=== PATIENT | male | born 1995 | race Caucasian/White ===

== ENCOUNTER → 2018-01-23 02:56 | Outpatient (CLI) | payer MEDICAID, SELFPAY ==
--- NOTE | 2018-01-23 15:03 | DI.REPORT_ITS ---
SYMPTOMS/DIAGNOSIS: PAIN OF MEDIAL RT UPPER EXTREMITY, M79.601 SOFT TISSUE ULTRASOUND OF RIGHT UPPER EXTREMITY: Soft tissue ultrasound was performed to evaluate palpable area of abnormality of the distal medial upper arm. There is an approximately 7 x 6 mm in diameter solid echogenicity mass with mildly lobulated fairly well circumscribed borders. There is vascular flow within this mass. The findings are nonspecific but may represent an abnormally enlarged lymph node or other soft tissue mass. Neoplastic disease not excluded but unlikely in this age group and location. Visible vasculature in the forearm appears within normal limits with no evidence of venous thrombosis. CONCLUSION: Indeterminate small right distal medial upper arm mass with internal vascular flow, possible enlarged lymph node, neoplastic disease not excluded.
== END ==
PROVIDERS: PCP Family Medicine
DX: M79.601 Pain in right arm (principal); R22.31 Localized swelling, mass and lump, right upper limb; R59.0 Localized enlarged lymph nodes
CPT/HCPCS: 76881

== ENCOUNTER 2018-04-07 09:36 | Outpatient (CLI) | payer MEDICAID, SELFPAY ==
[2018-04-08 12:02] LABS: HIV-1/2 Ag & Ab Screen Negative (NEGAT)
[2018-04-08 15:46] LABS: Chlamydia Result Negative; GC Result Negative; Specimen Description URINE
== END 2018-04-07 09:56 ==
PROVIDERS: PCP Family Medicine; Visit Provider Family Medicine
DX: Z11.3 Encounter for screening for infections with a predominantly sexual mode of transmission (principal); Z11.4 Encounter for screening for human immunodeficiency virus [HIV]
CPT/HCPCS: 36415; 87389; 87491; 87591

== ENCOUNTER 2018-12-12 08:12 | Emergency (ER) | payer MEDICAID, SELFPAY ==
[2018-12-12 08:15] VITALS: BP 119/86; PULSE 68; RESP 14; TEMP 37.4; O2SAT 100
--- NOTE | 2018-12-12 08:43 | DI.COMBO_ITS ---
SYMPTOM/DIAGNOSIS: ABD PAIN, TRAUMA, LATERAL RIB PAIN ABDOMEN AND PELVIC CT: CT scan of the abdomen and pelvis was performed following the uneventful administration of intravenous contrast material. Comparison is made with 02/09/15. The visualized lung bases are clear. There is no evidence of a basilar pneumothorax. The liver is normal in size. No evidence of a hepatic mass or laceration. The gallbladder is negative. The portal, superior mesenteric and splenic veins are patent. There is no biliary ductal dilatation. The pancreas, spleen, adrenal glands, kidneys, ureters and bladder are unremarkable. Reproductive organs are unremarkable. The bowel is unremarkable. The abdominal aorta is of normal caliber. No aneurysmal dilatation. No significant abdominal or pelvic adenopathy, ascites or pneumoperitoneum is seen. There is a minimally displaced fracture involving the posterolateral aspect of the left ninth rib. No other fractures are appreciated. IMPRESSION: Minimally displaced fracture of the left ninth rib. No evidence of a basilar pneumothorax. No evidence of abdominal or pelvic organ injury. LEFT RIBS AND PA AND LATERAL CHEST: Heart size and pulmonary vasculature are within normal limits. The lungs are clear and well expanded. There is a minimally displaced fracture involving the posterolateral aspect of the left ninth rib. No other fracture is seen. No effusion or pneumothorax is identified. There is contrast in the renal collecting system due to the patient's recent CT scan. IMPRESSION: Minimally displaced left ninth rib fracture.
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
[2018-12-12 09:09] LABS: Bilirubin Small (Negative); Blood Negative (Negative); Clarity Clear (Clear); Glucose Negative (Negative); Ketones Negative (Negative); Leukocyte Esterase Negative (Negative); Nitrite Negative (Negative); Specific Gravity 1.015 (1.005-1.025); pH 8.5 (5-8)
[2018-12-12 09:16] LABS: Abs Immature Grans 0.01 k/cumm (0.0-0.09); Absolute Basophil Count 0.06 k/cumm (0.0-0.2); Absolute Eosinophil Count 0.08 k/cumm (0.0-0.7); Absolute Lymphocyte Count 1.63 k/cumm (1.2-3.4); Absolute Monocyte Count 0.76 k/cumm (0.11-0.7); Basophils % 0.8; Eosinophils % 1.1; HCT 47.2 % (40.0-50.0); HGB 16.4 g/dL (13.5-17.5); Immature Grans % 0.1; Lymphocytes % 22.2; Mean Corp. HGB Concentration 34.7 g/dL (32.0-36.0); Mean Corpuscular Hemoglobin 35.1 pg (27.0-33.0); Mean Corpuscular Volume 101.1 fL (80-95); Mean Platelet Volume 11.1 fL (8.0-11.0); Monocytes % 10.4; Neutrophils % 65.4; Platelet Count 245 x1000/uL (130-400); RBC 4.67 m/cumm (4.50-6.00); RBC Distribution Width 12.4 % (11.8-14.1); White Blood Cell Count 7.34 k/cumm (4.4-10.8)
[2018-12-12 09:18] LABS: Bacteria Negative HPF (Negative); C & S Indicated? No; Casts Negative LPF (Negative); Crystals Negative HPF (Negative); Epithelial Cells Negative HPF (Negative); Mucus Heavy (Negative); RBC Negative (0-2); WBC 0-2 HPF (0-5)
[2018-12-12 09:31] LABS: ALT 28 U/L (12-78); AST 26 U/L (15-37); Albumin 4.2 g/dL (3.4-5.0); Alkaline Phosphatase 95 U/L (46-116); Anion Gap 8.3 mmol/L (3-11); BUN 8 mg/dL (7-18); Bilirubin, Total 0.6 mg/dL (0.2-1.0); CO2 31.7 mmol/L (21.0-32.0); CREATININE 0.85 mg/dL (0.70-1.30); Calcium 9.6 mg/dL (8.5-10.1); Chloride 102 mmol/L (98-107); Glucose 98 mg/dL (70-100); Sodium 142 mmol/L (136-145); Total Protein 7.9 g/dL (6.4-8.2)
[2018-12-12] MEDS: Omnipaque 350 MG/ML 100 ML BTL IJ (09:46)
[2018-12-12] MEDS: Ketorolac 30 MG/ML VIAL IVP (10:03)
[2018-12-12] MEDS: Normal Saline Flush 10 ML SYR IVP (10:04)
--- NOTE | 2018-12-12 10:04 | DI.VRAD_ITS ---
Addendum created by Darlene Montana MD on 12/12/2018 10:11:31 AM EDT THIS REPORT CONTAINS FINDINGS THAT MAY BE CRITICAL TO PATIENT CARE. The findings were verbally communicated via telephone conference with Dr. Pablo Barrios at 10:11 AM EDT on 12/12/2018. The findings were acknowledged and understood. Addendum created by Darlene Montana MD on 12/12/2018 10:05:30 AM EDT Correction: There is a minimally displaced left ninth rib fracture. Initial report created on 12/12/2018 10:03:38 AM EDT EXAM: CT Abdomen and Pelvis With Contrast EXAM DATE/TIME: 12/12/2018 8:46 AM CLINICAL HISTORY: 23 years old, male; Abdominal pain; Other: Abd pain S/P trauma TECHNIQUE: Imaging protocol: Axial computed tomography images of the abdomen and pelvis with intravenous contrast. Coronal and sagittal reformatted images were created and reviewed. Radiation optimization: All CT scans at this facility use at least one of these dose optimization techniques: automated exposure control; mA and/or kV adjustment per patient size (includes targeted exams where dose is matched to clinical indication); or iterative reconstruction. Contrast material: OMNIPAQUE 350; Contrast volume: 100 ml; Contrast route: IV; COMPARISON: CT CHEST ABD PELVIS WITH CONTRAST 10/19/2017 12:17 AM FINDINGS: Lungs: Atelectasis or scar in the right lower lobe Liver: Normal. No mass. Gallbladder and bile ducts: Normal. No calcified stones. No ductal dilation. Pancreas: Normal. No ductal dilation. Spleen: Normal. No splenomegaly. Adrenals: Normal. No mass. Kidneys and ureters: Normal. No hydronephrosis. Stomach and bowel: Normal. No obstruction. No mucosal thickening. Appendix: No evidence of appendicitis. Intraperitoneal space: Normal. No free air. No significant fluid collection. Vasculature: Normal. No abdominal aortic aneurysm. Lymph nodes: Normal. No enlarged lymph nodes. Bladder: Unremarkable as visualized. Reproductive: Unremarkable as visualized. Bones/joints: No acute fracture. No dislocation. Soft tissues: Unremarkable. IMPRESSION: No acute process Dictated and Authenticated by: Darlene Montana MD. Ordering:KRISSY Chen MD
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
[2018-12-12] MEDS: Lidocaine 5% Patch 1 PATCH TP (10:21)
[2018-12-12 10:35] VITALS: BP 116/85; PULSE 68; RESP 15; O2SAT 100
== END 2018-12-12 10:35 | disposition home or self-care (01) ==
PROVIDERS: Emergency Provider Nurse Practitioner Family; PCP Family Medicine
DX: S22.32XA Fracture of one rib, left side, initial encounter for closed fracture (principal); W22.8XXA Striking against or struck by other objects, initial encounter
CPT/HCPCS: 36415; 80053; 96374; 99285; 71046; 71100; 74177; 81003; 81015; 85025; 99284; J1885; J3490

== ENCOUNTER 2019-03-14 08:23 | Emergency (ER) | payer MEDICAID, SELFPAY ==
[2019-03-14 08:29] VITALS: BP 118/80; PULSE 89; RESP 20; TEMP 36.2; O2SAT 97
[2019-03-14 08:34] VITALS: RESP 18
[2019-03-14] MEDS: Lactated Ringers 1,000 ML 1000 ML IV ×2 (08:59→09:59)
--- NOTE | 2019-03-14 09:01 | ED.GENADUL_ITS ---
Discharge Plan Disposition Patient Disposition: HOME Condition: Improving Discharge Details Chief Complaint: GenMedical Clinical Impression: Nausea & vomiting Primary Care Provider: Delfino Huang ED Provider: Kaci Paul Home Meds and New Rx's Prescriptions: New promethazine 25 mg tablet 25 mg PO TID PRN (Reason: nausea and vomiting) Qty: 10 RF: 0 Continued methadone [Methadone Intensol] 10 mg/mL concentrate 75 mg PO DAILY RF: 0 lactulose 20 gram/30 mL solution 20 gm PO BID Qty: 1200 RF: 2 Vyvanse 70 mg capsule 70 mg PO DAILY MDD 1 cap Qty: 30 RF: 0 Vyvanse 20 mg capsule 20 mg PO DAILY MDD 1 cap Qty: 30 RF: 0 lidocaine 5 % adhesive patch,medicated 1 patch TP DAILY PRN (Reason: pain) Qty: 15 RF: 0 Discharge Instructions Instructions: Acute Nausea and Vomiting (ED) Additional Instructions: Continue to encourage hydration. You may advance diet as tolerated, may want to start with the BRAT diet including bananas, rice, applesauce and toast. You may use Phenergan as prescribed should your nausea vomiting recur. If you develop fever/chills, abdominal pain, are unable to control the vomiting, unable to hydrate develop with a new/worsening symptoms please seek care urgently once again. Otherwise, please follow-up with primary care next week for reevaluation. Referrals: Delfino Huang [Primary Care Provider] - Discharge Data Discharge Date/Time-TO BE ENTERED AT DEPARTURE: 03/14/19 10:47 Medical Decision Making Patient is a 23-year-old male, accompanied by his mother, with chief complaint of nausea vomiting. Reports he woke this morning around 6:00 and since that time has vomited x5. Denies any hematemesis. No recent travel. States that he did eat fast food from [employer] yesterday. Was feeling well yesterday. No diarrhea. Reports that is not unusual for him to have nausea and vomiting but associates this with needing daily bowel movements. Reports if he does not have his daily bowel movement, he will shortly have episodes of emesis. Denies any fevers or chills. Endorses cramping. States that prior to episodes of the vomiting he can become diaphoretic and have [id number] all over. Denies any rash. No chest pain or shortness of breath. States that he had 4 alcoholic beverages last night. On exam, patient appears nauseated he is holding emesis bag, is moving frequently and appears uncomfortable. After the IV was placed, patient immediately calmed down even prior to administration of any medications. Abdominal exam is benign. He does indicate the right flank is area where he is having some discomfort but no pain is elicited with CVA percussion. He has diffuse discomfort with palpation. The left upper quadrant, bilateral lower quadrants. No peritoneal findings, no rebound or guarding. He denies any pain going into his testicles, penile discharge. He denies any dysuria, hematuria, increased frequency or urgency. Plan for laboratory evaluation. Patient also reports that shortly after receiving his methadone dosing this morning, he did throw this up we did call [facility] and they report they did not witness the episode of emesis so were unable to re-dose him. Labs reviewed, no leukocytosis. CBC is largely normal. No electrolyte abnormalities. Patient's lactate is slightly elevated at 2. No anion gap. Normal kidney function. pH of his urine is elevated at 9. This may be associated with his acute vomiting. I did discuss this with him and advised that he may need to have this rechecked by his primary care. As I was going to re-dose the patient's methadone, I obtained a UDS. Patient was both methadone and opiate positive. I did discuss this with the patient who advised that he may have had a relapse. Cannot tell me what he used or when he used but patient does make it clear that he used illicit narcotics. At this time, [facility] the clinic is closed. The patient does seem genuinely remorseful and reports he will follow-up regarding his relapse with his clinic assigned counselor. Our clinical care manager will follow up with them tomorrow. Patient will be discharged home with oral Phenergan to use should he have any recurrence of his symptoms. He has received IV hydration. He is eating and drinking here. Appears much improved. Has not had any further episodes of vomiting. He was given return precautions. All his questions and concerns were addressed and he is in agreement with this plan. HPI General Mode of arrival: ambulatory . Date/Time Provider Initiated Documentation: 03/14/19 08:41 . Limitations to Documentation: no limitations . Information obtained by: patient, family (mother) and RN notes reviewed . History of Present Illness 23 year old M presents to the emergency department with the chief complaint of N/V, abdominal cramping, described as moderate, with intensity rated at 5. Quality is described as aching, and is localized to the abdomen. Patient reports no radiation. Patient started experiencing this hour(s) (0600) and it has been constant. No relieving factors improve symptom(s), No exacerbating factors reported . Patient notes diaphoresis (prior to emesis), loss of appetite and nausea/vomiting; denies chest pain, cough, fever/chills, headaches, rash, shortness of breath and weakness. Patient did receive the following treatments prior to arrival, none Related Data Home Medications Medication Instructions Recorded Confirmed methadone 10 mg/mL oral concentrate 75 mg PO DAILY ml 04/28/18 12/12/18 lactulose 20 gram/30 mL oral 20 gm PO BID #1200 ml 10/15/18 12/12/18 solution lidocaine 1 patch TP DAILY PRN #15 each 12/12/18 lisdexamfetamine 20 mg capsule 20 mg PO DAILY #30 cap MDD 1 cap 02/18/19 lisdexamfetamine 70 mg capsule 70 mg PO DAILY #30 cap MDD 1 cap 02/18/19 promethazine 25 mg PO TID PRN #10 tab 03/14/19 Previous Rx's Medication Instructions Recorded lactulose 20 gram/30 mL oral 20 gm PO BID #1200 ml 10/15/18 solution lidocaine 1 patch TP DAILY PRN #15 each 12/12/18 lisdexamfetamine 20 mg capsule 20 mg PO DAILY #30 cap MDD 1 cap 02/18/19 lisdexamfetamine 70 mg capsule 70 mg PO DAILY #30 cap MDD 1 cap 02/18/19 promethazine 25 mg PO TID PRN #10 tab 03/14/19 Allergies Allergy/AdvReac Type Severity Reaction Status Date / Time docusate [From Senna-S] AdvReac Severe GI UPSET Verified 12/12/18 08:19 senna [From Senna-S] AdvReac Severe GI UPSET Verified 12/12/18 08:19 General Stated Complaint: GenMedical DAYRON: 3 Review of Systems Constitutional Constitutional: Reports as per HPI, Denies chills, Denies fatigue, Denies fever(s) and Denies headache(s) ENT Ears, Nose, Mouth, and Throat: Denies headache(s) Cardiovascular Cardiovascular: Reports as per HPI, Denies chest pain and Denies dyspnea Respiratory Respiratory: Reports as per HPI, Denies cough and Denies dyspnea Gastrointestinal Gastrointestinal: Reports as per HPI Genitourinary Genitourinary: Denies system reviewed and no additional complaints, except as docu (patient denies any change in urinary habits) Musculoskeletal Musculoskeletal: Reports as per HPI and Denies back pain Integumentary/Breasts Skin/Breast: Reports as per HPI and Denies rash Neurologic Neurologic: Reports as per HPI and Denies headache(s) Endocrine Endocrine: Denies fatigue [facility] Medical History Accidental drug overdose Alcohol abuse Attention deficit hyperactivity disorder, combined type Cannabis abuse EXPOSURE TO DOMESTIC VIOLENCE Learning difficulty Mood disorder 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 Tobacco use disorder Surgical History Colonoscopy - MAC (08/19/17) EGD - MAC (08/19/17) Social History Smoking/Tobacco Use Status: Current every day Quit status: not considering quitting Second Hand Exposure: Yes Alcohol Intake: current Alcohol Intake frequency: a few times a week Alcohol type: beer Drug use: Occasionally Substance use type: former substance user Caregiver/Support person: No Household members: other Details: Gram/mom Pets and animals: Yes Pets and animals: cat(s) and dog(s) Sexually active: Yes Do you think of yourself as: straight/heterosexual Current gender identity: decline to answer What is your relationship status?: living with partner How often do you talk on the phone with friends or family?: decline to answer How often do you get together with friends or relatives?: decline to answer How often do you attend methodist or buddhism services?: decline to answer Do you belong to any clubs or organized social groups?: decline to answer Panel score (0-1 are the most socially isolated patients): 1 What type of physical activity do you participate in: walking Duration: 15-30 minutes/day Frequency: 3-4 times per week Ofelia/Restoration: Unknown Special ofelia needs: No Do you feel safe at home: Yes Do you feel safe in your relationship?: Yes Exam Const General: cooperative, no acute distress, well developed, ill appearing (holding emesis bag, pale) acutely and not lethargic Nutritional Appearance: average body habitus and well nourished Orientation: alert and awake [facility] Head: normal to inspection Mouth: moist mucous membranes Resp Effort & Inspection: normal respiratory effort, able to speak in complete sentences and no respiratory distress Auscultation: clear to auscultation bilaterally, no rales, no rhonchi and no wheezes Cardio Rate: regular rate Rhythm: regular rhythm Heart Sounds: S1 normal and S2 normal GI Inspection: normal to inspection, non-distended, no scars, no visible herniation and no visible pulsation Palpation: soft, no hepatosplenomegaly, not firm, no guarding, no hernias, no masses and tender in the LLQ, in the RLQ and in the LUQ; obturator sign negative, psoas sign negative and with no rebound tenderness Percussion: normal to percussion Auscultation: normal bowel sounds Back/Spine/Pelvis Back: no CVA tenderness Skin General skin exam: no rashes or lesions noted Trauma: no lacerations or abrasions Neuro General: alert and awake Cognition: normal cognition Speech: speech normal Gait: normal gait Psych Appearance: grossly normal and well kempt Mental Status: mental status grossly normal Speech and Movement: speech and movement normal Course Vital Signs Vital signs: Vital Signs Temperature 36.2 C L 03/14/19 08:29 Pulse 89 03/14/19 08:29 Respiratory Rate 20 03/14/19 08:29 Blood Pressure 118/80 03/14/19 08:29 Pulse Oximetry 97 03/14/19 08:29 Temperature 36.2 C L 03/14/19 08:29 Temperature Source Temporal Artery Scan 03/14/19 08:29 Pulse 89 03/14/19 08:29 Respiratory Rate 18 03/14/19 08:34 Respiratory Effort Non-Labored 03/14/19 08:34 Respiratory Depth Normal 03/14/19 08:34 Respiratory Pattern Normal 03/14/19 08:34 Blood Pressure 118/80 03/14/19 08:29 Blood Pressure Position Sitting 03/14/19 08:29 Pulse Oximetry 97 03/14/19 08:29 Oxygen Delivery Method Room Air 03/14/19 08:29 Oxygen Flow Rate 0 03/14/19 08:29 Pain Level 5 03/14/19 08:29 Lab/Test Results Lab/Test Results: Laboratory Tests Range/Units 03/14/19 08:55 Lactate (0.6-1.4) mmol/L 2.0 H
[2019-03-14] MEDS: diphenhydrAMINE 50 MG/ML VIAL 25 MG IVP (09:05)
[2019-03-14] MEDS: Metoclopramide 10 MG/2 ML VIAL IVP (09:05)
[2019-03-14 09:06] LABS: Abs Immature Grans 0.02 k/cumm (0.0-0.09); Absolute Basophil Count 0.06 k/cumm (0.0-0.2); Absolute Lymphocyte Count 1.38 k/cumm (1.2-3.4); Absolute Monocyte Count 0.74 k/cumm (0.11-0.7); Absolute Neutrophil Count 7.46 k/cumm (1.2-6.7); Basophils % 0.6; HCT 44.8 % (40.0-50.0); Immature Grans % 0.2; Lymphocytes % 14.1; Mean Corp. HGB Concentration 35.7 g/dL (32.0-36.0); Mean Corpuscular Hemoglobin 35.4 pg (27.0-33.0); Mean Corpuscular Volume 99.1 fL (80-95); Mean Platelet Volume 10.6 fL (8.0-11.0); Monocytes % 7.6; Neutrophils % 76.5; Platelet Count 235 x1000/uL (130-400); RBC 4.52 m/cumm (4.50-6.00); RBC Distribution Width 12.8 % (11.8-14.1); White Blood Cell Count 9.76 k/cumm (4.4-10.8)
[2019-03-14 09:17] LABS: ALT 22 U/L (16-63); AST 27 U/L (15-37); Albumin 4.3 g/dL (3.4-5.0); Alkaline Phosphatase 102 U/L (46-116); Anion Gap 10.3 mmol/L (3-11); BUN 8 mg/dL (7-18); Bilirubin, Total 0.5 mg/dL (0.2-1.0); CO2 31.7 mmol/L (21.0-32.0); CREATININE 1.09 mg/dL (0.70-1.30); Calcium 9.6 mg/dL (8.5-10.1); Chloride 101 mmol/L (98-107); Glucose 104 mg/dL (70-100); Lipase 105 U/L (73-393); Potassium 4.2 mmol/L (3.5-5.1); Sodium 143 mmol/L (136-145)
[2019-03-14 09:52] LABS: Bilirubin Negative (Negative); Blood Negative (Negative); Clarity Clear (Clear); Glucose Negative (Negative); Ketones Negative (Negative); Leukocyte Esterase Negative (Negative); Nitrite Negative (Negative); Specific Gravity 1.015 (1.005-1.025); pH >= 9.0 (5-8)
[2019-03-14] MEDS: Normal Saline Flush 10 ML SYR IVP (09:52)
[2019-03-14 10:01] VITALS: BP 106/66; PULSE 59; RESP 16; TEMP 37.1; O2SAT 99
[2019-03-14 10:09] LABS: *AMPHETAMINES SCREEN URINE Negative (Negative); *BARBITURATES SCREEN URINE Negative (Negative); *BENZODIAZEPINES SCREEN URINE Negative (Negative); Cannabinoids THC POSITIVE (Negative); Cocaine Screen,Urine Negative (Negative); METHADONE URINE SCREEN POSITIVE (Negative); OPIATES URINE SCREEN POSITIVE (Negative)
[2019-03-14 10:11] LABS: Bacteria Few HPF (Negative); C & S Indicated? No; Casts Negative LPF (Negative); Crystals Negative HPF (Negative); Epithelial Cells Negative HPF (Negative); Mucus Moderate (Negative); Other Cells Negative (Negative); RBC 0-2 (0-2); Tricyclic Antidepressants Negative (Negative); WBC Negative HPF (0-5)
[2019-03-14 10:46] VITALS: BP 106/66; PULSE 59; RESP 16; TEMP 37.1; O2SAT 99
== END 2019-03-14 10:47 | disposition home or self-care (01) ==
PROVIDERS: Emergency Provider Physician Assistant; PCP Family Medicine
DX: R11.2 Nausea with vomiting, unspecified (principal); R10.9 Unspecified abdominal pain; F19.20 Other psychoactive substance dependence, uncomplicated
CPT/HCPCS: 36415; 80053; 80307; 83690; 96361; 96374; 96375; 99284; 81003; 81015; 83605; 85025; J1200; J2765

== ENCOUNTER 2019-03-31 04:44 | Emergency (ER) | payer MEDICAID, SELFPAY ==
[2019-03-31 04:47] VITALS: BP 107/58; PULSE 76; RESP 16; TEMP 36.4; O2SAT 100
--- NOTE | 2019-03-31 05:02 | ED.GENADUL_ITS ---
Discharge Plan Disposition Patient Disposition: HOME Condition: Good Discharge Details Chief Complaint: Abd Prob Clinical Impression: Nausea and vomiting Primary Care Provider: Delfino Huang ED Provider: Feliciano Garland Home Meds and New Rx's Prescriptions: New promethazine [Promethegan] 12.5 mg suppository 12.5 mg [place] Q6H PRN (Reason: nausea and vomiting) Qty: 12 RF: 0 Continued methadone [Methadone Intensol] 10 mg/mL concentrate 75 mg PO DAILY RF: 0 Vyvanse 20 mg capsule 20 mg PO DAILY MDD 1 cap Qty: 30 RF: 0 Vyvanse 70 mg capsule 70 mg PO DAILY MDD 1 cap Qty: 30 RF: 0 promethazine 25 mg tablet 25 mg PO TID PRN (Reason: nausea and vomiting) Qty: 10 RF: 0 polyethylene glycol 3350 [Miralax] 17 gram Powder In Packet RF: 0 Discharge Instructions Instructions: Acute Nausea and Vomiting (ED) Additional Instructions: Clear liquid/bland diet today. Use promethazine suppository or tablet if needed for recurrent nausea vomiting. Return to ED for fever, bloody emesis, abdominal pain. Follow-up with PCP next week if not doing better. Referrals: Delfino Huang. [Primary Care Provider] - Medical Decision Making Patient has been vomiting for about 4 hours. Has no abdominal pain. Has a benign abdomen. Typically responds to fluids and Phenergan. I do not think labs are needed at this point. We will treat with LR and Phenergan and reevaluate. Patient feels much better. Will give prescription for promethazine suppositories to use in future if promethazine tablets will not stay down. Will finish his liter of LR and plan on discharge. Medical Records Medical records reviewed: Yes I reviewed the patient's medical records. HPI General Mode of arrival: ambulatory . Date/Time Provider Initiated Documentation: 03/31/19 04:55 . Limitations to Documentation: no limitations . Information obtained by: patient, RN notes reviewed and old records reviewed . HPI Narrative: Patient presents to ED with nausea and vomiting. Patient reports feeling well when he went to bed. Woke up around midnight with nausea and started vomiting around 1. He has been unable to stop since. Has Phenergan tablets at home but cannot keep them down. Has prior visits to ED with similar episodes. Denies having any abdominal pain. Denies fever. Is having bowel movements that are soft. Related Data Home Medications Medication Instructions Recorded Confirmed methadone 10 mg/mL oral concentrate 75 mg PO DAILY ml 04/28/18 03/31/19 promethazine 25 mg PO TID PRN #10 tab 03/14/19 03/31/19 lisdexamfetamine 20 mg capsule 20 mg PO DAILY #30 cap MDD 1 cap 03/22/19 03/31/19 lisdexamfetamine 70 mg capsule 70 mg PO DAILY #30 cap MDD 1 cap 03/22/19 03/31/19 polyethylene glycol 3350 [Miralax] 03/31/19 promethazine [Promethegan] 12.5 mg IL Q6H PRN #12 each 03/31/19 Previous Rx's Medication Instructions Recorded promethazine 25 mg PO TID PRN #10 tab 03/14/19 lisdexamfetamine 20 mg capsule 20 mg PO DAILY #30 cap MDD 1 cap 03/22/19 lisdexamfetamine 70 mg capsule 70 mg PO DAILY #30 cap MDD 1 cap 03/22/19 promethazine [Promethegan] 12.5 mg IL Q6H PRN #12 each 03/31/19 Allergies Allergy/AdvReac Type Severity Reaction Status Date / Time docusate [From Senna-S] AdvReac Severe GI UPSET Verified 03/31/19 04:50 senna [From Senna-S] AdvReac Severe GI UPSET Verified 03/31/19 04:50 General Stated Complaint: Abd Prob DAYRON: 3 Review of Systems Narrative: As documented in HPI otherwise negative as below. 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 Tobacco use disorder Surgical History Colonoscopy - MAC (08/19/17) EGD - MAC (08/19/17) Social History Smoking/Tobacco Use Status: Current every day Tobacco Type: cigars Quit status: not considering quitting Second Hand Exposure: Yes Alcohol Intake: current Alcohol Intake frequency: a few times a week Alcohol type: beer Drug use: Daily Substance use type: marijuana Details: was a former substance user Caregiver/Support person: No Household members: other Details: Gram/mom Pets and animals: Yes Pets and animals: cat(s) and dog(s) Sexually active: Yes Do you think of yourself as: straight/heterosexual Current gender identity: decline to answer What is your relationship status?: living with partner How often do you talk on the phone with friends or family?: decline to answer How often do you get together with friends or relatives?: decline to answer How often do you attend religious or confucianist services?: decline to answer Do you belong to any clubs or organized social groups?: decline to answer Panel score (0-1 are the most socially isolated patients): 1 What type of physical activity do you participate in: walking Duration: 15-30 minutes/day Frequency: 3-4 times per week Ofelia/Anglican: Unknown Special ofelia needs: No Do you feel safe at home: Yes Do you feel safe in your relationship?: Yes Exam Narrative Exam Narrative: Vitals: Afebrile with normal vitals and normal room air pulse ox. Const: WDWN male in NAD. HEENT: NC/AT. Normal facial exam. Eyes: Normal conjunctiva and sclera. Neck: Supple. Trachea midline. Lungs: Normal respiratory effort. Lungs are clear. Cor: RRR without murmur/gallop. Good radial pulses. GI: Soft. NT/ND. No guarding or rebound. Neuro: A+O x 3. CN grossly in tact. Good strength and no focal deficit. Course Vital Signs Vital signs: Vital Signs Temperature 97.5 F L 03/31/19 04:47 Pulse 76 03/31/19 04:47 Respiratory Rate 16 03/31/19 04:47 Blood Pressure 107/58 L 03/31/19 04:47 Pulse Oximetry 100 03/31/19 04:47 Temperature 97.5 F L 03/31/19 04:47 Temperature Source Tympanic 03/31/19 04:47 Pulse 76 03/31/19 04:47 Respiratory Rate 16 03/31/19 04:47 Blood Pressure 107/58 L 03/31/19 04:47 Pulse Oximetry 100 03/31/19 04:47 Pain Level 6 03/31/19 04:47 Comment 03/31/19 04:47
[2019-03-31] MEDS: Lactated Ringers 1,000 ML 1000 ML IV (05:09)
[2019-03-31 06:19] VITALS: BP 107/58; PULSE 76; RESP 16; O2SAT 100
== END 2019-03-31 06:15 | disposition home or self-care (01) ==
PROVIDERS: Emergency Provider Emergency Medicine; PCP Family Medicine
DX: R11.2 Nausea with vomiting, unspecified (principal)
CPT/HCPCS: 96361; 96365; 99284

== ENCOUNTER 2019-05-26 06:18 | Emergency (ER) | payer MEDICAID, SELFPAY ==
[2019-05-26 06:31] VITALS: BP 123/105; PULSE 90; RESP 20; TEMP 36.7; O2SAT 100
--- NOTE | 2019-05-26 06:44 | W.ED.GENAD ---
Discharge Plan Disposition Patient Disposition: HOME Condition: Good Discharge Details Chief Complaint: Nausea/Vomit/Diar Clinical Impression: Nausea & vomiting Primary Care Provider: Delfino Huang ED Provider: Feliciano Garland Home Meds and New Rx's Prescriptions: Continued Vyvanse 70 mg capsule 70 mg PO DAILY MDD 1 cap Qty: 30 RF: 0 Vyvanse 20 mg capsule 20 mg PO DAILY MDD 1 cap Qty: 30 RF: 0 methadone 40 mg tablet,soluble 80 mg PO DAILY RF: 0 promethazine 25 mg tablet 25 mg PO TID PRN (Reason: nausea and vomiting) Qty: 10 RF: 0 polyethylene glycol 3350 [Miralax] 17 gram Powder In Packet 1 g PRN PRNRF: 0 promethazine [Promethegan] 12.5 mg suppository 12.5 mg [place] Q6H PRN (Reason: nausea and vomiting) Qty: 12 RF: 0 Discharge Instructions Instructions: Acute Nausea and Vomiting (ED) Additional Instructions: Clear liquid/bland diet today. Rest. Phenergan if needed. Follow-up with primary care next week if not better. Return to ED for persistent vomiting, worsening abdominal pain, bloody diarrhea, bloody vomit, other concerns or problems. Referrals: Delfino Huang. [Primary Care Provider] - Medical Decision Making Patient presenting with nausea vomiting resulting in generalized pain and spasm throughout. Similar presentations in the past. We will establish IV and give fluids and Phenergan as before. Check labs. Reevaluate. Patient is much better. No longer nauseated and no longer vomiting. Laboratory studies are fine. Patient has Phenergan suppositories at home to use if needed. Patient be discharged at this time. HPI General Mode of arrival: ambulatory. Date/Time Provider Initiated Documentation: 05/26/19 06:42. Limitations to Documentation: no limitations. Information obtained by: patient, RN notes reviewed and old records reviewed. HPI Narrative: Patient presents to ED with nausea and vomiting. Patient has history of same with episodes similar to this. He reports he was fine last night when he went to bed. 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 He now has muscle spasm and pain all over including in his abdomen. There is been no hematemesis. There is no different in this presentation than all previous ED visits which responded to fluids and Phenergan. Related Data Home Medications Medication Instructions Recorded Confirmed promethazine 25 mg PO TID PRN #10 tab 03/14/19 05/26/19 polyethylene glycol 3350 [Miralax] 1 g PRN PRN 03/31/19 05/26/19 promethazine [Promethegan] 12.5 mg [place] Q6H PRN #12 each 03/31/19 05/26/19 methadone 40 mg soluble tablet 80 mg PO DAILY tab 04/02/19 05/26/19 lisdexamfetamine 20 mg capsule 20 mg PO DAILY #30 cap MDD 1 cap 05/21/19 05/26/19 lisdexamfetamine 70 mg capsule 70 mg PO DAILY #30 cap MDD 1 cap 05/21/19 05/26/19 Previous Rx's Medication Instructions Recorded promethazine 25 mg PO TID PRN #10 tab 03/14/19 promethazine [Promethegan] 12.5 mg NC Q6H PRN #12 each 03/31/19 lisdexamfetamine 20 mg capsule 20 mg PO DAILY #30 cap MDD 1 cap 05/21/19 lisdexamfetamine 70 mg capsule 70 mg PO DAILY #30 cap MDD 1 cap 05/21/19 Allergies Allergy/AdvReac Type Severity Reaction Status Date / Time docusate [From Senna-S] AdvReac Severe GI UPSET Verified 05/26/19 06:36 senna [From Senna-S] AdvReac Severe GI UPSET Verified 05/26/19 06:36 General Stated Complaint: Nausea/Vomit/Diar DAYRON: 3 Review of Systems Narrative: As documented in HPI otherwise negative as below. 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 Tobacco use disorder Surgical History Colonoscopy - MAC (08/19/17) EGD - MAC (08/19/17) Social History Smoking/Tobacco Use Status: Current every day Tobacco Type: cigars Quit status: not considering quitting Second Hand Exposure: Yes Alcohol Intake: current Alcohol Intake frequency: a few times a week Alcohol type: beer Drug use: Daily Substance use type: marijuana Details: was a former substance user Caregiver/Support person: No Household members: other Details: Gram/mom Pets and animals: Yes Pets and animals: cat(s) and dog(s) Sexually active: Yes Do you think of yourself as: straight/heterosexual Current gender identity: decline to answer What is your relationship status?: living with partner How often do you talk on the phone with friends or family?: decline to answer How often do you get together with friends or relatives?: decline to answer How often do you attend latter day or restoration services?: decline to answer Do you belong to any clubs or organized social groups?: decline to answer Panel score (0-1 are the most socially isolated patients): 1 What type of physical activity do you participate in: walking Duration: 15-30 minutes/day Frequency: 3-4 times per week Ofelia/Moravian: Unknown Special ofelia needs: No Do you feel safe at home: Yes Do you feel safe in your relationship?: Yes Exam Narrative Exam Narrative: Vitals: Afebrile. Normal vitals other than an elevated diastolic. Normal room air pulse ox. Const: Thin male and was very uncomfortable. HEENT: NC/AT. Normal facial exam. Eyes: Normal conjunctiva and sclera. Neck: Supple. Trachea midline. Lungs: Normal respiratory effort. Cor: RRR without murmur/gallop. Good radial pulses. GI: Non-distended. Diffusely tender. No guarding. Neuro: A+O x 3. Normal speech, mentation and gait. No focal motor or sensory deficit. Ext: No C/C/E. Course Vital Signs Vital signs: Vital Signs Temperature 98.1 F 05/26/19 06:31 Pulse 90 05/26/19 06:31 Respiratory Rate 20 05/26/19 06:31 Blood Pressure 123/105 H 05/26/19 06:31 Pulse Oximetry 100 05/26/19 06:31 Temperature 98.1 F 05/26/19 06:31 Temperature Source Skin 05/26/19 06:31 Pulse 90 05/26/19 06:31 Respiratory Rate 20 05/26/19 06:31 Respiratory Effort 05/26/19 06:31 Blood Pressure 123/105 H 05/26/19 06:31 Pulse Oximetry 100 05/26/19 06:31 Oxygen Delivery Method Room Air 05/26/19 06:31 Oxygen Flow Rate 0 05/26/19 06:31 Pain Level 10 05/26/19 06:31
[2019-05-26] MEDS: Lactated Ringers 1,000 ML 1000 ML IV (06:50)
--- NOTE | 2019-05-26 07:05 | NUR.NOTE ---
Nursing Note:Report to Keny OLIVER
[2019-05-26 07:08] LABS: Abs Immature Grans 0.01 k/cumm (0.0-0.09); Absolute Eosinophil Count 0.19 k/cumm (0.0-0.7); Absolute Lymphocyte Count 3.02 k/cumm (1.2-3.4); Absolute Monocyte Count 0.53 k/cumm (0.11-0.7); Absolute Neutrophil Count 3.45 k/cumm (1.2-6.7); Basophils % 1.4; Eosinophils % 2.6; HCT 44.1 % (40.0-50.0); HGB 15.6 g/dL (13.5-17.5); Immature Grans % 0.1; Lymphocytes % 41.4; Mean Corp. HGB Concentration 35.4 g/dL (32.0-36.0); Mean Corpuscular Volume 98.9 fL (80-95); Monocytes % 7.3; Neutrophils % 47.2; Platelet Count 279 x1000/uL (130-400); RBC 4.46 m/cumm (4.50-6.00); RBC Distribution Width 11.9 % (11.8-14.1)
[2019-05-26 07:30] LABS: ALT 30 U/L (16-63); AST 34 U/L (15-37); Albumin 4.3 g/dL (3.4-5.0); Alkaline Phosphatase 90 U/L (46-116); BUN 10 mg/dL (7-18); Bilirubin, Total 0.2 mg/dL (0.2-1.0); CREATININE 1.02 mg/dL (0.70-1.30); Calcium 9.3 mg/dL (8.5-10.1); Chloride 104 mmol/L (98-107); Glucose 100 mg/dL (74-106); Lipase 154 U/L (73-393); Magnesium 2.2 mg/dL (1.8-2.4); Potassium 4.6 mmol/L (3.5-5.1); Sodium 146 mmol/L (136-145); Total Protein 7.6 g/dL (6.4-8.2)
== END 2019-05-26 07:46 | disposition home or self-care (01) ==
PROVIDERS: Emergency Provider Emergency Medicine; PCP Family Medicine
DX: R11.2 Nausea with vomiting, unspecified (principal); R10.84 Generalized abdominal pain
CPT/HCPCS: 36415; 80053; 83690; 96361; 96374; 99284; 83735; 85025

== ENCOUNTER 2019-05-29 07:06 | Emergency (ER) | payer MEDICAID, SELFPAY ==
[2019-05-29 07:12] VITALS: BP 128/86; PULSE 91; RESP 16; TEMP 37.2; O2SAT 98
--- NOTE | 2019-05-29 07:26 | W.ED.GENAD ---
Discharge Plan Disposition Patient Disposition: HOME Condition: Improving Discharge Details Chief Complaint: Nausea/Vomit/Diar Clinical Impression: Vomiting and diarrhea Primary Care Provider: Delfino Huang ED Provider: Luz Villafana Home Meds and New Rx's Prescriptions: Continued Vyvanse 70 mg capsule 70 mg PO DAILY MDD 1 cap Qty: 30 RF: 0 Vyvanse 20 mg capsule 20 mg PO DAILY MDD 1 cap Qty: 30 RF: 0 methadone 40 mg tablet,soluble 80 mg PO DAILY RF: 0 polyethylene glycol 3350 [Miralax] 17 gram Powder In Packet 1 g PRN PRNRF: 0 promethazine [Promethegan] 12.5 mg suppository 12.5 mg [place] Q6H PRN (Reason: nausea and vomiting) Qty: 12 RF: 0 promethazine 25 mg tablet 25 mg PO TID PRN (Reason: nausea and vomiting) Qty: 10 RF: 0 Discharge Instructions Instructions: Acute Nausea and Vomiting (ED), Acute Diarrhea (ED) Additional Instructions: Drink plenty of fluids and get plenty of rest. Take the Phenergan tablets or suppositories that you have at home as needed and directed for nausea and vomiting. Follow-up with your primary care doctor within the next week for reevaluation. Return to the emergency department if you develop any worsening or new concerning symptoms. Discharge Data Discharge Physician: Luz Villafana Medical Decision Making <Pablo Barrois MD - Last Filed: 05/29/19 07:30> 23 yo male with history of former substance abuse on methadone, adhd, who has had multiple bouts of n/v especially in the morning the past few weeks and has had multiple periods during the past few years where he goes months with similar symptoms. Was seen several days ago and tx'd with phenergan with goof relief but symptoms again are returning. HAs no abdominal tenderness, travel, diarrhea. He denies drug use other than marijuana but states he doesn't use daily. His abdomen is soft and nondistended and non tender. No chest pain or pressure. I suspect cyclic vomit syndrome vs less likely cannabinoid hyperemesis. No abdominal tenderness to suggest cholecystitis or other surgical pathology. Will obtian lab work, tx with phnergan and monitor pt signed out to oncoming provider pending labs and response to phenergan Differential Diagnosis Differential Diagnosis: cyclic vomit syndrome, hyperemesis cannabinoid <Luz Kelsey Villafana DO - Last Filed: 05/29/19 08:42> Please see Dr. Barrios's note for initial presentation and plan. 23-year-old male presents for vomiting and diarrhea for the past few days, which resolved and then restarted again at 3 AM this morning. He was seen here 3 days ago for the same complaint and had unremarkable labs and was discharged home. Repeat labs done today unremarkable. Patient was given a liter of fluids and Phenergan here today and feels much better. Abdomen soft nontender. He appears nontoxic. Patient requests an additional Phenergan prescription. He stated that he has been having one episode of vomiting and diarrhea every morning for the past few weeks. It appears that the worsening vomiting and diarrhea over the past few days is likely viral as he has had a sick contact at work with similar symptoms. He only smokes marijuana once weekly so cannabinoid hyperemesis syndrome appears less likely. Discussed that he should follow-up with his primary care doctor for further evaluation if his daily vomiting and diarrhea continues or worsens with referral to GI or surgery if indicated. Usual and customary return precautions given prior to discharge. Medical Records Medical records reviewed: Yes I reviewed the patient's medical records. Lab Data Lab results reviewed: Yes I reviewed the patient's lab results. Labs: Laboratory Tests Range/Units 05/29/19 05/29/19 07:30 07:30 WBC (4.4-10.8) k/cumm 6.22 RBC (4.50-6.00) m/cumm 4.78 Hgb (13.5-17.5) g/dL 16.4 Hct (40.0-50.0) % 48.3 MCV (80-95) fL 101.0 H MCH (27.0-33.0) pg 34.3 H MCHC (32.0-36.0) g/dL 34.0 RDW (11.8-14.1) % 11.9 Plt Count (130-400) x1000/uL 250 MPV (8.0-11.0) fL 11.1 H Immature Gran % 0.2 Neutrophils % 55.4 Lymphocytes % 34.6 Monocytes % 6.3 Eosinophils % 2.4 Basophils % 1.1 Absolute Neutrophils (1.2-6.7) k/cumm 3.45 Absolute Lymphocytes (1.2-3.4) k/cumm 2.15 Absolute Monocytes (0.11-0.7) k/cumm 0.39 Absolute Eosinophils (0.0-0.7) k/cumm 0.15 Absolute Basophils (0.0-0.2) k/cumm 0.07 Sodium (136-145) mmol/L 142 Potassium (3.5-5.1) mmol/L 4.7 Chloride (98-107) mmol/L 102 Carbon Dioxide (21.0-32.0) mmol/L 32.3 H Anion Gap (3-11) mmol/L 7.7 BUN (7-18) mg/dL 9 Creatinine (0.70-1.30) mg/dL 1.00 Estimated GFR/1.73 m2 (mL/min/1.73m2) >= 60.00 Glucose (74-106) mg/dL 91 Calcium (8.5-10.1) mg/dL 9.5 Magnesium (1.8-2.4) mg/dL 2.1 Total Bilirubin (0.2-1.0) mg/dL 0.5 AST (15-37) U/L 27 ALT (16-63) U/L 31 Alkaline Phosphatase (46-116) U/L 94 Total Protein (6.4-8.2) g/dL 7.9 Albumin (3.4-5.0) g/dL 4.5 Lipase (73-393) U/L 90 HPI <Pablo Barrios MD - Last Filed: 05/29/19 07:30> General Mode of arrival: ambulatory. Date/Time Provider Initiated Documentation: 05/29/19 07:09. Limitations to Documentation: no limitations. Information obtained by: patient. History of Present Illness 23 year old M presents to the emergency department with the chief complaint of n/v, described as moderate, Patient reports no radiation. Patient started experiencing this month(s) (1) and it has been intermittent. No relieving factors improve symptom(s), No exacerbating factors reported . Patient did receive the following treatments prior to arrival, none Related Data Home Medications Medication Instructions Recorded Confirmed polyethylene glycol 3350 [Miralax] 1 g PRN PRN 03/31/19 05/29/19 promethazine [Promethegan] 12.5 mg [place] Q6H PRN #12 each 03/31/19 05/29/19 methadone 40 mg soluble tablet 80 mg PO DAILY tab 04/02/19 05/29/19 lisdexamfetamine 20 mg capsule 20 mg PO DAILY #30 cap MDD 1 cap 05/21/19 05/29/19 lisdexamfetamine 70 mg capsule 70 mg PO DAILY #30 cap MDD 1 cap 05/21/19 05/29/19 promethazine 25 mg PO TID PRN #10 tab 05/29/19 Previous Rx's Medication Instructions Recorded promethazine [Promethegan] 12.5 mg [place] Q6H PRN #12 each 03/31/19 lisdexamfetamine 20 mg capsule 20 mg PO DAILY #30 cap MDD 1 cap 05/21/19 lisdexamfetamine 70 mg capsule 70 mg PO DAILY #30 cap MDD 1 cap 05/21/19 promethazine 25 mg PO TID PRN #10 tab 05/29/19 Allergies Allergy/AdvReac Type Severity Reaction Status Date / Time docusate [From Senna-S] AdvReac Severe GI UPSET Verified 05/29/19 07:15 senna [From Senna-S] AdvReac Severe GI UPSET Verified 05/29/19 07:15 General Stated Complaint: Nausea/Vomit/Diar DAYRON: 3 Review of Systems <Pablo Barrios MD - Last Filed: 05/29/19 07:30> All systems reviewed & are unremarkable except as noted in HPI and below Constitutional Constitutional: Denies chills and Denies fever(s) Cardiovascular Cardiovascular: Denies chest pain and Denies dyspnea Respiratory Respiratory: Denies cough and Denies dyspnea Genitourinary Genitourinary: Denies dysuria Musculoskeletal Musculoskeletal: Denies joint swelling Integumentary/Breasts Skin/Breast: Denies rash Psychiatric Psychiatric: Denies depression PFS <Pablo Barrios MD - Last Filed: 05/29/19 07:30> Medical History (Updated 05/26/19 @ 06:46 by Feliciano Garland MD) Accidental drug overdose Alcohol abuse Attention deficit hyperactivity disorder, combined type Cannabis abuse EXPOSURE TO DOMESTIC VIOLENCE Gastroesophageal reflux disease with esophagitis (Inactive 10/10/16) Learning difficulty Mood disorder 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 Tobacco use disorder Surgical History Colonoscopy - MAC (08/19/17) EGD - MAC (08/19/17) Social History Smoking/Tobacco Use Status: Current every day Tobacco Type: cigars Quit status: not considering quitting Second Hand Exposure: Yes Alcohol Intake: current Alcohol Intake frequency: a few times a week Alcohol type: beer Drug use: Rarely Substance use type: marijuana Details: was a former substance user Caregiver/Support person: No Household members: other Details: Gram/mom Pets and animals: Yes Pets and animals: cat(s) and dog(s) Sexually active: Yes Do you think of yourself as: straight/heterosexual Current gender identity: decline to answer What is your relationship status?: living with partner How often do you talk on the phone with friends or family?: decline to answer How often do you get together with friends or relatives?: decline to answer How often do you attend restorationist or sabianism services?: decline to answer Do you belong to any clubs or organized social groups?: decline to answer Panel score (0-1 are the most socially isolated patients): 1 What type of physical activity do you participate in: walking Duration: 15-30 minutes/day Frequency: 3-4 times per week Ofelia/Restorationist: Unknown Special ofelia needs: No Do you feel safe at home: Yes Do you feel safe in your relationship?: Yes Exam <Pablo Barrios MD - Last Filed: 05/29/19 07:30> Const General: no acute distress Orientation: alert HENMT Head: normal to inspection Ears: external ears normal General nose exam: external nose normal Mouth: moist mucous membranes Eyes General: appearance normal, both eyes and all related structures Neck Neck: normal visual inspection Resp Effort & Inspection: normal respiratory effort and able to speak in complete sentences Cardio Rate: regular rate GI Palpation: soft Skin General skin exam: no rashes or lesions noted Neuro General: alert and oriented x3 Extrem General: normal to inspection Psych Mental Status: mental status grossly normal Course <Pablo Barrios MD - Last Filed: 05/29/19 07:30> Vital Signs Vital signs: Vital Signs Temperature 37.2 C 05/29/19 07:12 Pulse 91 H 05/29/19 07:12 Respiratory Rate 16 05/29/19 07:12 Blood Pressure 128/86 05/29/19 07:12 Pulse Oximetry 98 05/29/19 07:12 Temperature 37.2 C 05/29/19 07:12 Temperature Source Skin 05/29/19 07:12 Pulse 91 H 05/29/19 07:12 Respiratory Rate 16 05/29/19 07:12 Respiratory Effort Non-Labored 05/29/19 07:12 Blood Pressure 128/86 05/29/19 07:12 Blood Pressure Position Sitting 05/29/19 07:12 Pulse Oximetry 98 05/29/19 07:12 Oxygen Delivery Method Room Air 05/29/19 07:12 Oxygen Flow Rate 0 05/29/19 07:12 Pain Level 5 05/29/19 07:12 Sign Out <Pablo Barrios MD - Last Filed: 05/29/19 07:30> Sign Out Data: Sign Out Comment: follow up on labs and response to phenergan Last updated by Pablo Barrios MD at 05/29/19 07:36
[2019-05-29] MEDS: Normal Saline 1,000 ML 1000 ML IV (07:35)
[2019-05-29 07:43] LABS: Abs Immature Grans 0.01 k/cumm (0.0-0.09); Absolute Basophil Count 0.07 k/cumm (0.0-0.2); Absolute Eosinophil Count 0.15 k/cumm (0.0-0.7); Absolute Lymphocyte Count 2.15 k/cumm (1.2-3.4); Absolute Monocyte Count 0.39 k/cumm (0.11-0.7); Absolute Neutrophil Count 3.45 k/cumm (1.2-6.7); Basophils % 1.1; Eosinophils % 2.4; HCT 48.3 % (40.0-50.0); HGB 16.4 g/dL (13.5-17.5); Immature Grans % 0.2; Lymphocytes % 34.6; Mean Corpuscular Hemoglobin 34.3 pg (27.0-33.0); Mean Platelet Volume 11.1 fL (8.0-11.0); Monocytes % 6.3; Neutrophils % 55.4; Platelet Count 250 x1000/uL (130-400); RBC 4.78 m/cumm (4.50-6.00); RBC Distribution Width 11.9 % (11.8-14.1); White Blood Cell Count 6.22 k/cumm (4.4-10.8)
[2019-05-29] MEDS: Normal Saline Flush 10 ML SYR IVP (07:46)
[2019-05-29 07:52] LABS: ALT 31 U/L (16-63); AST 27 U/L (15-37); Albumin 4.5 g/dL (3.4-5.0); Alkaline Phosphatase 94 U/L (46-116); Anion Gap 7.7 mmol/L (3-11); BUN 9 mg/dL (7-18); Bilirubin, Total 0.5 mg/dL (0.2-1.0); CO2 32.3 mmol/L (21.0-32.0); Calcium 9.5 mg/dL (8.5-10.1); Chloride 102 mmol/L (98-107); Glucose 91 mg/dL (74-106); Lipase 90 U/L (73-393); Magnesium 2.1 mg/dL (1.8-2.4); Potassium 4.7 mmol/L (3.5-5.1); Sodium 142 mmol/L (136-145); Total Protein 7.9 g/dL (6.4-8.2)
[2019-05-29 08:50] VITALS: BP 103/63; PULSE 50; RESP 16; TEMP 37.2; O2SAT 100
== END 2019-05-29 08:46 | disposition home or self-care (01) ==
PROVIDERS: Emergency Medicine; Emergency Provider Physician Assistant; PCP Family Medicine
DX: R11.2 Nausea with vomiting, unspecified (principal); R19.7 Diarrhea, unspecified
CPT/HCPCS: 36415; 80053; 83690; 96361; 96374; 99284; 83735; 85025; 99283

== ENCOUNTER 2019-06-22 04:01 | Emergency (ER) | payer MEDICAID, SELFPAY ==
[2019-06-22 04:04] VITALS: BP 100/74; PULSE 66; RESP 20; TEMP 37.1; O2SAT 100
--- NOTE | 2019-06-22 04:22 | ED.GENADUL_ITS ---
Discharge Plan Disposition Patient Disposition: HOME Condition: Good Discharge Details Chief Complaint: Nausea/Vomit/Diar Clinical Impression: Nausea, vomiting and diarrhea Primary Care Provider: Delfino Huang ED Provider: Feliciano Garland [place] Meds and New Rx's Prescriptions: Continued methadone 40 mg tablet,soluble 80 mg PO DAILY RF: 0 Vyvanse 70 mg capsule 70 mg PO DAILY MDD 1 cap Qty: 30 RF: 0 Vyvanse 20 mg capsule 20 mg PO DAILY MDD 1 cap Qty: 30 RF: 0 polyethylene glycol 3350 [Miralax] 17 gram Powder In Packet 1 g PRN PRNRF: 0 promethazine [Promethegan] 12.5 mg suppository 12.5 mg [place] Q6H PRN (Reason: nausea and vomiting) Qty: 12 RF: 0 promethazine 25 mg tablet 25 mg PO TID PRN (Reason: nausea and vomiting) Qty: 10 RF: 0 Discharge Instructions Instructions: Acute Nausea and Vomiting (ED) Additional Instructions: Follow-up with primary care to discuss possible referral to GI. Return to ED for fever, persistent vomiting, worsening abdominal pain. Referrals: Delfino Huang [Primary Care Provider] - Medical Decision Making Patient presenting with another episode of vomiting, diarrhea and abdominal pain similar to previous episodes. In the past he responds to IV fluids and Phenergan. Labs have been fine the last few visits so unless he does not improve as he normally does we will not bother to repeat labs at this point. May need to consider referral to GI as this seems to be occurring more frequently. Patient much better. Abdomen benign. Will discharge home and have him follow- up with primary care for consideration of GI referral. Medical Records Medical records reviewed: Yes I reviewed the patient's medical records. HPI General Mode of arrival: ambulatory . Date/Time Provider Initiated Documentation: 06/22/19 04:17 . Limitations to Documentation: no limitations . Information obtained by: patient, RN notes reviewed and old records reviewed . HPI Narrative: Patient presents to ED with nausea, vomiting, diarrhea and abdominal pain. Symptoms started 3 to 4 hours ago. Patient has history of same and has been seen by me a number of times. He has tried taking both Phenergan tablets and suppositories at home. He was well prior to this. There is no fever, chest pain, shortness of breath. There is no hematemesis or hematochezia. Last episode like this was around [place] time. Related Data Home Medications Medication Instructions Recorded Confirmed polyethylene glycol 3350 [Miralax] 1 g PRN PRN 03/31/19 06/22/19 promethazine [Promethegan] 12.5 mg [place] Q6H PRN #12 each 03/31/19 06/22/19 methadone 40 mg soluble tablet 80 mg PO DAILY tab 04/02/19 06/22/19 promethazine 25 mg PO TID PRN #10 tab 05/29/19 06/22/19 lisdexamfetamine 20 mg capsule 20 mg PO DAILY #30 cap MDD 1 cap 06/17/19 06/22/19 lisdexamfetamine 70 mg capsule 70 mg PO DAILY #30 cap MDD 1 cap 06/17/19 06/22/19 Previous Rx's Medication Instructions Recorded promethazine [Promethegan] 12.5 mg [place] Q6H PRN #12 each 03/31/19 promethazine 25 mg PO TID PRN #10 tab 05/29/19 lisdexamfetamine 20 mg capsule 20 mg PO DAILY #30 cap MDD 1 cap 06/17/19 lisdexamfetamine 70 mg capsule 70 mg PO DAILY #30 cap MDD 1 cap 06/17/19 Allergies Allergy/AdvReac Type Severity Reaction Status Date / Time docusate [From Senna-S] AdvReac Severe GI UPSET Verified 05/29/19 07:15 senna [From Senna-S] AdvReac Severe GI UPSET Verified 05/29/19 07:15 General Stated Complaint: Nausea/Vomit/Diar DAYRON: 3 Review of Systems Narrative: As documented in HPI otherwise negative as below. 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) Mood disorder Tobacco use disorder Surgical History Colonoscopy - MAC (08/19/17) EGD - MAC (08/19/17) Social History Smoking/Tobacco Use Status: Current every day Tobacco Type: cigars Quit status: not considering quitting Second Hand Exposure: Yes Alcohol Intake: current Alcohol Intake frequency: a few times a week Alcohol type: beer Drug use: Rarely Substance use type: marijuana Details: was a former substance user Caregiver/Support person: No Household members: other Details: Gram/mom Pets and animals: Yes Pets and animals: cat(s) and dog(s) Sexually active: Yes Do you think of yourself as: straight/heterosexual Current gender identity: decline to answer What is your relationship status?: living with partner How often do you talk on the phone with friends or family?: decline to answer How often do you get together with friends or relatives?: decline to answer How often do you attend orthodox or latter-day services?: decline to answer Do you belong to any clubs or organized social groups?: decline to answer Panel score (0-1 are the most socially isolated patients): 1 What type of physical activity do you participate in: walking Duration: 15-30 minutes/day Frequency: 3-4 times per week Ofelia/Moravian: Unknown Special ofelia needs: No Do you feel safe at home: Yes Do you feel safe in your relationship?: Yes Exam Narrative Exam Narrative: Vitals: Afebrile with normal vital signs and room air pulse oximetry. Const: Thin male with active dry heaves. HEENT: NC/AT. Normal facial exam. Eyes: Normal conjunctiva and sclera. Neck: Supple. Trachea midline. Lungs: Normal respiratory effort. Lungs are clear. Cor: RRR without murmur/gallop. GI: Soft. NT/ND. No guarding or rebound. Neuro: A+O x 3. CN grossly in tact. Good strength and no focal deficit. Ext: No C/C/E. Skin: Warm and dry without rash. Course Vital Signs Vital signs: Vital Signs Temperature 98.8 F 06/22/19 04:04 Pulse 66 06/22/19 04:04 Respiratory Rate 20 06/22/19 04:04 Blood Pressure 100/74 06/22/19 04:04 Pulse Oximetry 100 06/22/19 04:04 Temperature 98.8 F 06/22/19 04:04 Temperature Source Skin 06/22/19 04:04 Pulse 66 06/22/19 04:04 Respiratory Rate 06/22/19 04:04 Respiratory Effort 06/22/19 04:04 Blood Pressure 100/74 06/22/19 04:04 Pulse Oximetry 100 06/22/19 04:04 Pain Level 6 06/22/19 04:04
[2019-06-22] MEDS: Lactated Ringers 1,000 ML 1000 ML IV (04:30)
[2019-06-22 05:15] VITALS: BP 125/67; PULSE 72; RESP 16; O2SAT 99
== END 2019-06-22 05:15 | disposition home or self-care (01) ==
LOC: ER 05:22
PROVIDERS: Emergency Provider Emergency Medicine; PCP Family Medicine
DX: R11.0 Nausea (principal); R19.7 Diarrhea, unspecified
CPT/HCPCS: 96361; 96365; 99284; 99283

== ENCOUNTER 2019-06-29 20:13 | Emergency (ER) | payer MEDICAID, SELFPAY ==
[2019-06-29 20:19] VITALS: BP 127/90; PULSE 98; RESP 18; TEMP 37.3; O2SAT 96
--- NOTE | 2019-06-29 20:20 | ED.GENADUL_ITS ---
Discharge Plan Disposition Patient Disposition: HOME Condition: Good Discharge Details Chief Complaint: Nausea/Vomit/Diar Clinical Impression: Recurrent vomiting Primary Care Provider: Delfino Huang ED Provider: Feliciano Garland Home Meds and New Rx's Prescriptions: Continued methadone 40 mg tablet,soluble 80 mg PO DAILY RF: 0 Vyvanse 70 mg capsule 70 mg PO DAILY MDD 1 cap Qty: 30 RF: 0 Vyvanse 20 mg capsule 20 mg PO DAILY MDD 1 cap Qty: 30 RF: 0 polyethylene glycol 3350 [Miralax] 17 gram Powder In Packet 1 g PRN PRNRF: 0 promethazine 25 mg tablet 25 mg PO TID PRN (Reason: nausea and vomiting) Qty: 10 RF: 0 promethazine [Promethegan] 12.5 mg suppository 12.5 mg [place] Q6H PRN (Reason: nausea and vomiting) Qty: 12 RF: 0 Discharge Instructions Additional Instructions: Contact GI specialist and inquire whether they have a cancellation list or not. Otherwise be sure to keep your appointment with them. [place] diet for the next day or so. Phenergan either orally or rectally at start of symptoms in the future to try to prevent symptoms from being so severe. Return to ED if problems. Referrals: Delfino Huang. [Primary Care Provider] - Medical Decision Making Patient here with recurrent vomiting and diarrhea which she gets episodically but now occurring much more frequently. Responded to IV fluids and Phenergan. Does not need repeat labs. Has been referred to GI but no appointment until July. Patient doing better. Tolerating p.o. Will have patient call GI office to see if there is a cancellation list to try to get him in sooner. Will refill prescription for promethazine suppositories. Medical Records Medical records reviewed: Yes I reviewed the patient's medical records. HPI General Mode of arrival: ambulatory . Date/Time Provider Initiated Documentation: 06/29/19 20:20 . Limitations to Documentation: no limitations . Information obtained by: patient, RN notes reviewed and old records reviewed . HPI Narrative: Patient presents with nausea, vomiting and diarrhea onset suddenly this evening. Patient has history of same and has been seen by me a number of times. Recently episodes have been occurring more frequently. He was seen by PCP after his last ED visit. He has been referred to GI but does not see them until July. Tonight after eating dinner he developed recurrent episode of nausea, vomiting, diarrhea and abdominal cramping. Similar to all previous presentations. No fever. No symptoms prior to onset. Related Data Home Medications Medication Instructions Recorded Confirmed polyethylene glycol 3350 [Miralax] 1 g PRN PRN 03/31/19 06/29/19 methadone 40 mg soluble tablet 80 mg PO DAILY tab 04/02/19 06/29/19 promethazine 25 mg PO TID PRN #10 tab 05/29/19 06/29/19 lisdexamfetamine 20 mg capsule 20 mg PO DAILY #30 cap MDD 1 cap 06/17/19 06/29/19 lisdexamfetamine 70 mg capsule 70 mg PO DAILY #30 cap MDD 1 cap 06/17/19 06/29/19 promethazine [Promethegan] 12.5 mg [place] Q6H PRN #12 each 06/29/19 Previous Rx's Medication Instructions Recorded promethazine 25 mg PO TID PRN #10 tab 05/29/19 lisdexamfetamine 20 mg capsule 20 mg PO DAILY #30 cap MDD 1 cap 06/17/19 lisdexamfetamine 70 mg capsule 70 mg PO DAILY #30 cap MDD 1 cap 06/17/19 promethazine [Promethegan] 12.5 mg [place] Q6H PRN #12 each 06/29/19 Allergies Allergy/AdvReac Type Severity Reaction Status Date / Time docusate [From Senna-S] AdvReac Severe GI UPSET Verified 06/29/19 20:23 senna [From Senna-S] AdvReac Severe GI UPSET Verified 06/29/19 20:23 General DAYRON: 3 Review of Systems Narrative: As documented in HPI otherwise negative as below. 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) Mood disorder Recurrent vomiting (Acute) Tobacco use disorder Surgical History Colonoscopy - MAC (08/19/17) EGD - MAC (08/19/17) Social History Smoking/Tobacco Use Status: Current every day Tobacco Type: cigars Quit status: not considering quitting Second Hand Exposure: Yes Alcohol Intake: current Alcohol Intake frequency: a few times a week Alcohol type: beer Drug use: Rarely Substance use type: marijuana Details: was a former substance user Caregiver/Support person: No Household members: other Details: Gram/mom Pets and animals: Yes Pets and animals: cat(s) and dog(s) Sexually active: Yes Do you think of yourself as: straight/heterosexual Current gender identity: decline to answer What is your relationship status?: living with partner How often do you talk on the phone with friends or family?: decline to answer How often do you get together with friends or relatives?: decline to answer How often do you attend religion or sikhism services?: decline to answer Do you belong to any clubs or organized social groups?: decline to answer Panel score (0-1 are the most socially isolated patients): 1 What type of physical activity do you participate in: walking Duration: 15-30 minutes/day Frequency: 3-4 times per week Ofelia/Christian: Unknown Special ofelia needs: No Do you feel safe at home: Yes Do you feel safe in your relationship?: Yes Exam Narrative Exam Narrative: Vitals: Afebrile. Normal vital signs and room air pulse oximetry. Const: WDWN male in NAD. HEENT: NC/AT. Normal facial exam. Eyes: Normal conjunctiva and sclera. Neck: Supple. Trachea midline. Lungs: Normal respiratory effort. Lungs are clear. Cor: RRR without murmur/gallop. Good radial pulses. GI: Soft. NT/ND. No guarding or rebound. Neuro: A+O x 3. Normal speech, mentation, gait. Cranial nerves II - XII grossly intact. No gross motor or sensory deficit. Ext: No C/C/E. Skin: Warm and dry without rash.
[2019-06-29] MEDS: Lactated Ringers 1,000 ML 1000 ML IV (20:41)
== END 2019-06-29 21:45 | disposition home or self-care (01) ==
PROVIDERS: Emergency Provider Emergency Medicine; PCP Family Medicine
DX: R11.2 Nausea with vomiting, unspecified (principal); R19.7 Diarrhea, unspecified; F12.10 Cannabis abuse, uncomplicated
CPT/HCPCS: 96361; 96365; 99284

== ENCOUNTER 2019-07-24 14:37 | Emergency (ER) | payer MEDICAID, SELFPAY ==
[2019-07-24 14:37] VITALS: BP 134/93; PULSE 91; RESP 16; TEMP 37.3; O2SAT 98
--- NOTE | 2019-07-24 14:45 | DI.RAD_ITS ---
EXAM: XR HAND RT COMPLETE CLINICAL HISTORY: ring finger injury from planer, pain throughtout TECHNIQUE: COMPARISON: LEFT HAND COMPLETE from 03/21/2015 FINDINGS: Three views were obtained. There is a soft tissue defect over the distal ring finger dorsoulnar aspe ct. No evidence of underlying fracture. No other evidence of acute injury. IMPRESSION:
--- NOTE | 2019-07-24 14:55 | W.ED.GENAD ---
Discharge Plan Disposition Patient Disposition: HOME Condition: Stable Discharge Details Chief Complaint: Laceration Clinical Impression: Avulsion of skin of finger Primary Care Provider: Delfino Huang ED Provider: Edouard Majano Home Meds and New Rx's Prescriptions: Continued methadone 40 mg tablet,soluble 80 mg PO DAILY RF: 0 Vyvanse 70 mg capsule 70 mg PO DAILY MDD 1 cap Qty: 30 RF: 0 Vyvanse 20 mg capsule 20 mg PO DAILY MDD 1 cap Qty: 30 RF: 0 polyethylene glycol 3350 [Miralax] 17 gram Powder In Packet 1 g PRN PRNRF: 0 promethazine 25 mg tablet 25 mg PO TID PRN (Reason: nausea and vomiting) Qty: 10 RF: 0 promethazine [Promethegan] 12.5 mg suppository 12.5 mg [place] Q6H PRN (Reason: nausea and vomiting) Qty: 12 RF: 0 Discharge Instructions Instructions: Skin Avulsion (ED) Additional Instructions: Leave dressing in place for 72 hours, then may remove, gently wash with soap and water, pat dry, replace dressing as we discussed. Return if you develop a fever, foul-smelling discharge from the wound, or any other acute concern. Continue your regular medications. May use Tylenol 650 to 975 mg every 4-6 hours as needed for pain and/or ibuprofen 800 mg every 8 hours, with food. Elevate above the level heart to reduce pain and swelling. May apply ice to the area to reduce discomfort as well. Your x-rays today did not show any bone injury. Medical Decision Making 23-year-old male who was using a large-scale wood last maker when his gloved hand was caught in the right ring finger suffered an avulsion injury. Dressing was applied at the scene the patient brought to the ER. His tetanus is up-to-date as of 2018. On exam he has full motor and sensation intact. The right ring finger distal ulnar aspect has approximately 0.5 x 1.5 cm avulsion. The patient was referred for x-ray to rule out underlying bony injury and no acute bony findings appreciated, see formal report. Dressed with Xeroform, Kerlix gauze. Discussed with him home management including dressing changes. This will require healing by secondary intention/granulation tissue. He understands return indications to the ER and may follow-up with primary care for any other concerns. HPI General Mode of arrival: ambulatory. Date/Time Provider Initiated Documentation: 07/24/19 14:46. Limitations to Documentation: no limitations. Information obtained by: patient and family. History of Present Illness 23 year old M presents to the emergency department with the chief complaint of Right hand/ring finger injury in planer, described as moderate, Quality is described as dull, and is localized to the right and upper extremity. Patient reports no radiation. Patient started experiencing this minute(s) and it has been constant. No relieving factors improve symptom(s), No exacerbating factors reported . Patient notes no other symptoms.. Patient did receive the following treatments prior to arrival, none Related Data Home Medications Medication Instructions Recorded Confirmed polyethylene glycol 3350 [Miralax] 1 g PRN PRN 03/31/19 07/24/19 methadone 40 mg soluble tablet 80 mg PO DAILY tab 04/02/19 07/24/19 promethazine 25 mg PO TID PRN #10 tab 05/29/19 07/24/19 promethazine [Promethegan] 12.5 mg [place] Q6H PRN #12 each 06/29/19 07/24/19 lisdexamfetamine 20 mg capsule 20 mg PO DAILY #30 cap MDD 1 cap 07/21/19 07/24/19 lisdexamfetamine 70 mg capsule 70 mg PO DAILY #30 cap MDD 1 cap 07/21/19 07/24/19 Previous Rx's Medication Instructions Recorded promethazine 25 mg PO TID PRN #10 tab 05/29/19 promethazine [Promethegan] 12.5 mg [place] Q6H PRN #12 each 06/29/19 lisdexamfetamine 20 mg capsule 20 mg PO DAILY #30 cap MDD 1 cap 07/21/19 lisdexamfetamine 70 mg capsule 70 mg PO DAILY #30 cap MDD 1 cap 07/21/19 Allergies Allergy/AdvReac Type Severity Reaction Status Date / Time docusate [From Senna-S] AdvReac Severe GI UPSET Verified 07/24/19 14:40 senna [From Senna-S] AdvReac Severe GI UPSET Verified 07/24/19 14:40 General Stated Complaint: Laceration DAYRON: 4 Review of Systems Narrative: Tetanus up-to-date 2017. No other injury. No numbness or tingling. Patient has otherwise been well. 4 systems reviewed and negative. 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) Mood disorder Recurrent vomiting (Acute) Tobacco use disorder Surgical History Colonoscopy - MAC (08/19/17) EGD - MAC (08/19/17) Social History Smoking/Tobacco Use Status: Current every day Tobacco Type: cigars Quit status: not considering quitting Second Hand Exposure: Yes Alcohol Intake: current Alcohol Intake frequency: a few times a week Alcohol type: beer Drug use: Rarely Substance use type: marijuana Details: was a former substance user Caregiver/Support person: No Household members: other Details: Gram/mom Pets and animals: Yes Pets and animals: cat(s) and dog(s) Sexually active: Yes Do you think of yourself as: straight/heterosexual Current gender identity: decline to answer What is your relationship status?: living with partner How often do you talk on the phone with friends or family?: decline to answer How often do you get together with friends or relatives?: decline to answer How often do you attend jewish or buddhism services?: decline to answer Do you belong to any clubs or organized social groups?: decline to answer Panel score (0-1 are the most socially isolated patients): 1 What type of physical activity do you participate in: walking Duration: 15-30 minutes/day Frequency: 3-4 times per week Ofelia/Adventism: Unknown Special ofelia needs: No Do you feel safe at home: Yes Do you feel safe in your relationship?: Yes Exam Narrative Exam Narrative: GEN: awake, alert, oriented 3. Pleasant, well groomed, interactive. HEAD: Normocephalic, atraumatic ENT: Mucous membranes moist, oropharynx unremarkable, External ear exam unremarkable EYES: PERRL, EOMI NECK: Full ROM, no PANTERA, no menigismus EXT: Full ROM, no edema, no rash. The right ring finger has a 0.5 x 1.5 cm avulsion on the distal ulnar aspect. The volar pad is primarily intact. There is no laceration. There is no underlying bone exposure Neuro: Grossly normal neurologic exam, conversant, interactive. Psych: Speech fluent, thoughts congruent, affect normal Course Vital Signs Vital signs: Vital Signs Temperature 37.3 C 07/24/19 14:37 Pulse 91 H 07/24/19 14:37 Respiratory Rate 16 07/24/19 14:37 Blood Pressure 134/93 H 07/24/19 14:37 Pulse Oximetry 98 07/24/19 14:37 Temperature 37.3 C 07/24/19 14:37 Temperature Source Skin 07/24/19 14:37 Pulse 91 H 07/24/19 14:37 Respiratory Rate 16 07/24/19 14:37 Respiratory Effort Non-Labored 07/24/19 14:37 Blood Pressure 134/93 H 07/24/19 14:37 Blood Pressure Position Sitting 07/24/19 14:37 Pulse Oximetry 98 07/24/19 14:37 Oxygen Delivery Method Room Air 07/24/19 14:37 Oxygen Flow Rate 0 07/24/19 14:37 Pain Level 8 07/24/19 14:37
--- NOTE | 2019-07-24 15:41 | DI.VRAD_ITS ---
PROCEDURE INFORMATION: Exam: XR Right Hand Exam date and time: 07/24/2019 3:18 PM Age: 23 years old Clinical indication: Other: Ring finger injury from planer, pain throughout TECHNIQUE: Imaging protocol: XR Right hand. Views: 3 or more views. COMPARISON: No relevant prior studies available. FINDINGS: Bones/joints: The no evidence for acute bony injury. Old 5th metacarpal fracture. Soft tissues: Right 4th distal finger skin defect. IMPRESSION: 4th distal finger skin defect. Dictated and Authenticated by: Yasmeen Montana MD. Ordering:LUDIN Nunn MD
== END 2019-07-24 15:55 | disposition home or self-care (01) ==
PROVIDERS: Emergency Provider Emergency Medicine; PCP Family Medicine
DX: S61.214A Laceration without foreign body of right ring finger without damage to nail, initial encounter (principal); W31.2XXA Contact with powered woodworking and forming machines, initial encounter
CPT/HCPCS: 99283; 73130

== ENCOUNTER 2019-07-29 05:12 | Emergency (ER) | payer MEDICAID, SELFPAY ==
[2019-07-29 05:16] VITALS: BP 117/77; PULSE 85; RESP 16; TEMP 37; O2SAT 100
--- NOTE | 2019-07-29 05:28 | ED.GENADUL_ITS ---
Discharge Plan Disposition Patient Disposition: HOME Condition: Good Discharge Details Chief Complaint: EyeProblem Clinical Impression: Eye foreign body Primary Care Provider: Delfino Huang ED Provider: Feliciano Garland Home Meds and New Rx's Prescriptions: Continued methadone 40 mg tablet,soluble 80 mg PO DAILY RF: 0 Vyvanse 70 mg capsule 70 mg PO DAILY MDD 1 cap Qty: 30 RF: 0 Vyvanse 20 mg capsule 20 mg PO DAILY MDD 1 cap Qty: 30 RF: 0 polyethylene glycol 3350 [Miralax] 17 gram Powder In Packet 1 g PRN PRNRF: 0 promethazine 25 mg tablet 25 mg PO TID PRN (Reason: nausea and vomiting) Qty: 10 RF: 0 promethazine [Promethegan] 12.5 mg suppository 12.5 mg [place] Q6H PRN (Reason: nausea and vomiting) Qty: 12 RF: 0 Discharge Instructions Additional Instructions: I should feel better from this point on. Maybe a little irritation and Visine should take care of it. Return to ED for increasing pain, swelling, vision change. Follow-up with [facility] if continued irritation or discomfort. Stand Alone Forms: Work Release Referrals: [facility] [Outside] Medical Decision Making Patient felt like something was up under his eyelid. With eversion and swiping with Q-tip foreign body was removed. It did appear like possible small piece of wood. Fluorescein staining of the cornea negative for uptake. Slit lamp exam negative for residual foreign body or abnormalities of the cornea. Patient discharged home. Return to work this morning. HPI General Mode of arrival: ambulatory . Date/Time Provider Initiated Documentation: 07/29/19 05:28 . Limitations to Documentation: no limitations . Information obtained by: patient and RN notes reviewed . HPI Narrative: Patient presents to ED with complaint of right eye foreign body sensation. Patient works around wood but does not recall getting anything in his eye. Bothered him on and off throughout the night but this morning he was really unable to open his eye because of discomfort, foreign body sensation, tearing. He has no real pain. He has no vision change. He attempted to wash his eye out at home without success. He is post going to work but came here first due to the inability to keep his eyes open. Related Data Home Medications Medication Instructions Recorded Confirmed polyethylene glycol 3350 [Miralax] 1 g PRN PRN 03/31/19 07/29/19 methadone 40 mg soluble tablet 80 mg PO DAILY tab 04/02/19 07/29/19 promethazine 25 mg PO TID PRN #10 tab 05/29/19 07/29/19 promethazine [Promethegan] 12.5 mg [place] Q6H PRN #12 each 06/29/19 07/29/19 lisdexamfetamine 20 mg capsule 20 mg PO DAILY #30 cap MDD 1 cap 07/21/19 07/29/19 lisdexamfetamine 70 mg capsule 70 mg PO DAILY #30 cap MDD 1 cap 07/21/19 07/29/19 Previous Rx's Medication Instructions Recorded promethazine 25 mg PO TID PRN #10 tab 05/29/19 promethazine [Promethegan] 12.5 mg [place] Q6H PRN #12 each 06/29/19 lisdexamfetamine 20 mg capsule 20 mg PO DAILY #30 cap MDD 1 cap 07/21/19 lisdexamfetamine 70 mg capsule 70 mg PO DAILY #30 cap MDD 1 cap 07/21/19 Allergies Allergy/AdvReac Type Severity Reaction Status Date / Time docusate [From Senna-S] AdvReac Severe GI UPSET Verified 07/29/19 05:20 senna [From Senna-S] AdvReac Severe GI UPSET Verified 07/29/19 05:20 General Stated Complaint: EyeProblem DAYRON: 4 Review of Systems Constitutional Constitutional: Denies fever(s) Eyes Eyes: Denies change in vision, Reports irritation and Denies eye pain Comments: Foreign body sensation right eye ENT Ears, Nose, Mouth, and Throat: Denies nasal congestion, Denies sinus pain and Denies sore throat [facility] Medical History Attention deficit hyperactivity disorder, combined type (Chronic) Cannabis abuse Gastroesophageal reflux disease with esophagitis (Inactive 10/10/16) 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) Mood disorder Recurrent vomiting (Acute) Tobacco use disorder Surgical History Colonoscopy - MAC (08/19/17) EGD - MAC (08/19/17) Social History Smoking/Tobacco Use Status: Current every day Tobacco Type: cigars Quit status: not considering quitting Second Hand Exposure: Yes Alcohol Intake: current Alcohol Intake frequency: a few times a week Alcohol type: beer Drug use: Rarely Substance use type: marijuana Details: was a former substance user Caregiver/Support person: No Household members: other Details: Gram/mom Pets and animals: Yes Pets and animals: cat(s) and dog(s) Sexually active: Yes Do you think of yourself as: straight/heterosexual Current gender identity: decline to answer What is your relationship status?: living with partner How often do you talk on the phone with friends or family?: decline to answer How often do you get together with friends or relatives?: decline to answer How often do you attend gnosticism or episcopal services?: decline to answer Do you belong to any clubs or organized social groups?: decline to answer Panel score (0-1 are the most socially isolated patients): 1 What type of physical activity do you participate in: walking Duration: 15-30 minutes/day Frequency: 3-4 times per week Ofelia/Hinduism: Unknown Special ofelia needs: No Do you feel safe at home: Yes Do you feel safe in your relationship?: Yes Exam Const General: cooperative, comfortable and no acute distress Orientation: alert and oriented x3 HENMT Head: normocephalic and atraumatic Face and sinus: normal facial exam Eyes Periorbital: periorbital findings normal Eyelids: eyelid abnormality right upper eyelid foreign body (With eversion and swiping with Q-tip foreign body removed from under upper lid) Conjunctivae: conjunctival abnormality right conjunctival injection Sclera: sclerae normal Cornea: corneas normal and fluorescein used Pupils: PERRL EOM: EOM intact bilaterally Course Vital Signs Vital signs: Vital Signs Temperature 98.6 F 07/29/19 05:16 Pulse 85 07/29/19 05:16 Respiratory Rate 16 07/29/19 05:16 Blood Pressure 117/77 07/29/19 05:16 Pulse Oximetry 100 07/29/19 05:16 Temperature 98.6 F 07/29/19 05:16 Temperature Source Skin 07/29/19 05:16 Pulse 85 07/29/19 05:16 Respiratory Rate 16 07/29/19 05:16 Respiratory Effort 0227/20 05:16 Blood Pressure 117/77 07/29/19 05:16 Pulse Oximetry 100 07/29/19 05:16 Pain Level 3 07/29/19 05:16
--- NOTE | 2019-07-29 05:32 | NUR.NOTE ---
Nursing Note: Fluorescein strip and tetracaine drops at bedside for Dr. Garland. Would not scan.,
[2019-07-29 05:45] VITALS: BP 117/77; PULSE 85; RESP 16; O2SAT 100
== END 2019-07-29 05:45 | disposition home or self-care (01) ==
PROVIDERS: Emergency Provider Emergency Medicine; PCP Family Medicine
DX: T15.11XA Foreign body in conjunctival sac, right eye, initial encounter (principal)
CPT/HCPCS: 65220

== ENCOUNTER 2019-07-30 17:58 | Emergency (ER) | payer MEDICAID, SELFPAY ==
[2019-07-30 18:01] VITALS: BP 119/70; PULSE 81; RESP 18; TEMP 36.6; O2SAT 98
--- NOTE | 2019-07-30 18:14 | W.ED.GENAD ---
Discharge Plan Disposition Patient Disposition: HOME Condition: Stable Discharge Details Chief Complaint: EyeProblem Clinical Impression: Abrasion of sclera Primary Care Provider: Delfino Huang ED Provider: Luz Villafana Home Meds and New Rx's Prescriptions: Continued methadone 40 mg tablet,soluble 80 mg PO DAILY RF: 0 Vyvanse 70 mg capsule 70 mg PO DAILY MDD 1 cap Qty: 30 RF: 0 Vyvanse 20 mg capsule 20 mg PO DAILY MDD 1 cap Qty: 30 RF: 0 polyethylene glycol 3350 [Miralax] 17 gram Powder In Packet 1 g PRN PRNRF: 0 promethazine 25 mg tablet 25 mg PO TID PRN (Reason: nausea and vomiting) Qty: 10 RF: 0 promethazine [Promethegan] 12.5 mg suppository 12.5 mg [place] Q6H PRN (Reason: nausea and vomiting) Qty: 12 RF: 0 Discharge Instructions Instructions: Corneal Abrasion (ED) Additional Instructions: You were noted to have an abrasion of the sclera of your eye in both eyes. The sclera is the white part of your eye. You were given instructions regarding a corneal abrasion for further information about abrasions of the eye but there was no noted abrasion of your cornea on exam today. Apply 2 drops of sulfacetamide ophthalmic solution in each eye 4 times daily for 5 days. Follow-up with [facility] next week for reevaluation. Return to the emergency department if you develop any worsening or concerning symptoms. 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 He has tearing and some blurry vision. States he was wearing safety glasses. Patient states he flushed his eyes aggressively prior to arrival. Patient was also seen here yesterday for foreign body sensation and pain in right eye after cutting wood. His exam was negative for any foreign body or abrasion at that time. Visual acuity OS 20/70, OD 20/20 He had only complained of pain and foreign body sensation in his left eye on arrival but during my evaluation complained that he has foreign body sensation and pain in his right eye after removing his sweatshirt. Complete exam of both eyes including slit lamp and everting the eyelids negative for any foreign body. Fluorescein staining noted a scleral abrasion at 4:00 in the left eye and 2 scleral abrasions in the right eye, one at 4:00 and one at 7:00. Discussed with patient at length that I did not see any obvious foreign body with extensive examination of the eye and that a foreign body sensation and pain can come with an abrasion. He was given a Boostrix here. Sulfacetamide drops placed in both eyes and bottle given for home. He was advised to follow-up with [facility] for reevaluation within the next week and to return here with any concerns. He was advised to purchase goggles. Medical Records Medical records reviewed: Yes I reviewed the patient's medical records. HPI General Date/Time Provider Initiated Documentation: 07/30/19 17:58. History of Present Illness 23 year old M presents to the emergency department with the chief complaint of Foreign body sensation and pain in left eye after cutting wood, Quality is described as aching, and is localized to the eyes. Patient started experiencing this hour(s) (1) and it has been constant. No relieving factors improve symptom(s), Movement worsens symptoms . Patient notes no other symptoms.. Patient did receive the following treatments prior to arrival, none Related Data Home Medications Medication Instructions Recorded Confirmed polyethylene glycol 3350 [Miralax] 1 g PRN PRN 03/31/19 07/30/19 methadone 40 mg soluble tablet 80 mg PO DAILY tab 04/02/19 07/30/19 promethazine 25 mg PO TID PRN #10 tab 05/29/19 07/30/19 promethazine [Promethegan] 12.5 mg [place] Q6H PRN #12 each 06/29/19 07/30/19 lisdexamfetamine 20 mg capsule 20 mg PO DAILY #30 cap MDD 1 cap 07/21/19 07/30/19 lisdexamfetamine 70 mg capsule 70 mg PO DAILY #30 cap MDD 1 cap 07/21/19 07/30/19 Previous Rx's Medication Instructions Recorded promethazine 25 mg PO TID PRN #10 tab 05/29/19 promethazine [Promethegan] 12.5 mg [place] Q6H PRN #12 each 06/29/19 lisdexamfetamine 20 mg capsule 20 mg PO DAILY #30 cap MDD 1 cap 07/21/19 lisdexamfetamine 70 mg capsule 70 mg PO DAILY #30 cap MDD 1 cap 07/21/19 Allergies Allergy/AdvReac Type Severity Reaction Status Date / Time docusate [From Senna-S] AdvReac Severe GI UPSET Verified 07/30/19 18:03 senna [From Senna-S] AdvReac Severe GI UPSET Verified 07/30/19 18:03 General Stated Complaint: EyeProblem DAYRON: 4 Review of Systems All systems reviewed & are unremarkable except as noted in HPI and below Constitutional Constitutional: Reports as per HPI, Denies chills and Denies fever(s) Eyes Eyes: Denies blurry vision ENT Ears, Nose, Mouth, and Throat: Denies dizziness, Denies sore throat and Denies throat swelling Cardiovascular Cardiovascular: Denies chest pain and Denies dyspnea Respiratory Respiratory: Denies cough and Denies dyspnea Gastrointestinal Gastrointestinal: Denies abdominal pain, Denies diarrhea and Denies vomiting Genitourinary Genitourinary: Denies hematuria and Denies dysuria Musculoskeletal Musculoskeletal: Denies back pain and Denies numbness Integumentary/Breasts Skin/Breast: Denies lesions and Denies rash Neurologic Neurologic: Denies dizziness, Denies focal weakness and Denies numbness Allergic/Immunologic Allergic/Immunologic: Denies throat swelling [facility] Social History Smoking/Tobacco Use Status: Current every day Tobacco Type: cigars Quit status: not considering quitting Second Hand Exposure: Yes Alcohol Intake: current Alcohol Intake frequency: a few times a week Alcohol type: beer Drug use: Rarely Substance use type: marijuana Details: was a former substance user Caregiver/Support person: No Household members: other Details: Gram/mom Pets and animals: Yes Pets and animals: cat(s) and dog(s) Sexually active: Yes Do you think of yourself as: straight/heterosexual Current gender identity: decline to answer What is your relationship status?: living with partner How often do you talk on the phone with friends or family?: decline to answer How often do you get together with friends or relatives?: decline to answer How often do you attend yazdanism or restoration services?: decline to answer Do you belong to any clubs or organized social groups?: decline to answer Panel score (0-1 are the most socially isolated patients): 1 What type of physical activity do you participate in: walking Duration: 15-30 minutes/day Frequency: 3-4 times per week Ofelia/Protestant: Unknown Special ofelia needs: No Do you feel safe at home: Yes Do you feel safe in your relationship?: Yes Exam Const General: cooperative, healthy appearing and no acute distress HENMT Head: normal to inspection Ears: hearing grossly normal bilaterally and external ears normal Mouth: oral mucosae normal Eyes General: appearance normal, both eyes and all related structures Eyelids: eyelids normal Conjunctivae: conjunctivae normal Pupils: PERRL EOM: EOM intact bilaterally Other: External eyes normal to inspection. No foreign bodies noted with eyelid eversion bilaterally. No obvious foreign bodies noted with close inspection including slit-lamp. Fluorescein uptake noted in sclera at 4:00 in left eye as well as 4:00 and 7:00 in right eye. No corneal abrasions noted. Neck Neck: normal visual inspection Resp Effort & Inspection: normal respiratory effort and able to speak in complete sentences Cardio Rate: regular rate Skin General skin exam: no rashes or lesions noted Neuro General: alert, awake and oriented x3 Motor: muscle tone normal throughout Extrem General: normal to inspection and full ROM Psych Appearance: grossly normal Affect: normal affect Course Vital Signs Vital signs: Vital Signs Temperature 97.9 F 07/30/19 18:01 Pulse 81 07/30/19 18:01 Respiratory Rate 18 07/30/19 18:01 Blood Pressure 119/70 07/30/19 18:01 Pulse Oximetry 98 07/30/19 18:01 Temperature 97.9 F 07/30/19 18:01 Temperature Source Skin 07/30/19 18:01 Pulse 81 07/30/19 18:01 Respiratory Rate 18 07/30/19 18:01 Respiratory Effort 07/30/19 18:04 Blood Pressure 119/70 07/30/19 18:01 Pulse Oximetry 98 07/30/19 18:01 Pain Level 4 07/30/19 18:01
== END 2019-07-30 19:25 | disposition home or self-care (01) ==
PROVIDERS: Emergency Provider Physician Assistant; PCP Family Medicine
DX: S05.01XA Injury of conjunctiva and corneal abrasion without foreign body, right eye, initial encounter (principal); S05.02XA Injury of conjunctiva and corneal abrasion without foreign body, left eye, initial encounter; X58.XXXA Exposure to other specified factors, initial encounter
CPT/HCPCS: 90471; 99284; 99283

== ENCOUNTER 2019-07-31 09:02 | Emergency (ER) | payer MEDICAID, SELFPAY ==
[2019-07-31 09:07] VITALS: BP 118/71; PULSE 86; RESP 14; TEMP 36.5; O2SAT 97
--- NOTE | 2019-07-31 10:23 | ED.GENADUL_ITS ---
Discharge Plan Disposition Patient Disposition: HOME Condition: Improving Discharge Details Chief Complaint: EyeProblem Clinical Impression: Corneal abrasion Primary Care Provider: Delfino Huang ED Provider: Param Castorena Home Meds and New Rx's Prescriptions: Continued methadone 40 mg tablet,soluble 80 mg PO DAILY RF: 0 Vyvanse 70 mg capsule 70 mg PO DAILY MDD 1 cap Qty: 30 RF: 0 Vyvanse 20 mg capsule 20 mg PO DAILY MDD 1 cap Qty: 30 RF: 0 polyethylene glycol 3350 [Miralax] 17 gram Powder In Packet 1 g PRN PRNRF: 0 promethazine 25 mg tablet 25 mg PO TID PRN (Reason: nausea and vomiting) Qty: 10 RF: 0 promethazine [Promethegan] 12.5 mg suppository 12.5 mg PA Q6H PRN (Reason: nausea and vomiting) Qty: 12 RF: 0 Discharge Instructions Instructions: Corneal Abrasion (ED) Additional Instructions: I was unable to see an obvious foreign body however you did receive relief with the Kareem lens irrigation. Continue antibiotic drops as directed and add on [id number] lubricating drops as directed. Cool and/or warm compresses every 2 hours for 20 minutes. Please watch for new or worsening symptoms and return to the ER for any concerns. Please contact [facility] first thing Friday for prompt outpatient reevaluation Medical Decision Making Discussed with patient and mother that I saw no obvious foreign body. No signs of infection currently. Tetracaine was applied, patient did report relief. Visual acuity obtained and no significant change when compared to yesterday. We discussed that there very well may be a foreign body that I cannot visualize or perhaps a small foreign body was present yesterday caused eye irritation and now this feels like a foreign body. He has a known corneal abrasion for which he is being treated. We discussed our options. He is agreeable to attempting irrigation with a Kareem lens. Kareem lens irrigation completed and he reports that he feels significant improvement after the irrigation. We discussed the importance of continuing his antibiotics, adding on [id number] lubricating drops, and the importance of outpatient ophthalmology follow-up. We will fax our notes to [facility] in an attempt to expedite outpatient care. He is to contact their office first thing Friday for follow-up. Otherwise will return to the ER for new or evolving symptoms. Patient and family comfortable with this plan and have no additional questions or concerns Medical Records Medical records reviewed: Yes I reviewed the patient's medical records. HPI General Mode of arrival: ambulatory . Date/Time Provider Initiated Documentation: 07/31/19 09:13 . Limitations to Documentation: no limitations . Information obtained by: patient and family . HPI Narrative: 23-year-old gentleman with a history of alcohol abuse, anxiety, tobacco disorder, insomnia, currently on methadone maintenance therapy, presents to the ER for the third time in 3 days with concern of left eye foreign body. Patient believes that he had a sawdust to go up over his safety glasses and into his left eye. He was seen, no foreign body was identified, placed on antibiotics, recommended outpatient follow-up with ophthalmology. Ophthalmology not open over the weekend so came back to the ER as he feels as though the foreign body is still there. He reports mild drainage from his left eye this morning but that is since resolved. Reports mild blurry vision however it is unchanged from yesterday. No additional questions or concerns. Reports that the irritation is a 3 or 4 out of 10. He does not wear contacts or glasses Related Data Home Medications Medication Instructions Recorded Confirmed polyethylene glycol 3350 [Miralax] 1 g PRN PRN 03/31/19 07/30/19 methadone 40 mg soluble tablet 80 mg PO DAILY tab 04/02/19 07/30/19 promethazine 25 mg PO TID PRN #10 tab 05/29/19 07/30/19 promethazine [Promethegan] 12.5 mg PA Q6H PRN #12 each 06/29/19 07/30/19 lisdexamfetamine 20 mg capsule 20 mg PO DAILY #30 cap MDD 1 cap 07/21/19 07/30/19 lisdexamfetamine 70 mg capsule 70 mg PO DAILY #30 cap MDD 1 cap 07/21/19 07/30/19 Previous Rx's Medication Instructions Recorded promethazine 25 mg PO TID PRN #10 tab 05/29/19 promethazine [Promethegan] 12.5 mg PA Q6H PRN #12 each 06/29/19 lisdexamfetamine 20 mg capsule 20 mg PO DAILY #30 cap MDD 1 cap 07/21/19 lisdexamfetamine 70 mg capsule 70 mg PO DAILY #30 cap MDD 1 cap 07/21/19 Allergies Allergy/AdvReac Type Severity Reaction Status Date / Time docusate [From Senna-S] AdvReac Severe GI UPSET Verified 07/30/19 18:03 senna [From Senna-S] AdvReac Severe GI UPSET Verified 07/30/19 18:03 General Stated Complaint: EyeProblem DAYRON: 4 Review of Systems Constitutional Constitutional: Denies fever(s), Denies headache(s) and Denies weakness Eyes Eyes: Denies blind spots, Reports blurry vision, Denies diplopia, Reports eye discharge, Denies floaters, Reports irritation, Denies itchy eyes, Denies loss of peripheral vision, Denies loss of vision, Reports eye pain, Denies requires corrective lenses, Denies seeing flashes, Denies photophobia, Denies spots in vision and Denies tunnel vision ENT Ears, Nose, Mouth, and Throat: Denies headache(s) Musculoskeletal Musculoskeletal: Denies numbness and Denies tingling Integumentary/Breasts Skin/Breast: Denies rash Neurologic Neurologic: Denies headache(s), Denies loss of vision, Denies numbness, Denies tingling and Denies weakness Allergic/Immunologic Allergic/Immunologic: Denies itchy eyes PFS Medical History Attention deficit hyperactivity disorder, combined type (Chronic) Cannabis abuse Gastroesophageal reflux disease with esophagitis (Inactive 10/10/16) 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 Maternal Grandmother Depression COPD (chronic obstructive pulmonary disease) Sister Asthma Brother No problems noted. Paternal Grandfather Depression Paternal Grandmother No problems noted. Social History Smoking/Tobacco Use Status: Current every day Tobacco Type: cigars Quit status: not considering quitting Second Hand Exposure: Yes Alcohol Intake: current Alcohol Intake frequency: a few times a week Alcohol type: beer Drug use: Rarely Substance use type: marijuana Details: was a former substance user Caregiver/Support person: No Household members: other Details: Gram/mom Pets and animals: Yes Pets and animals: cat(s) and dog(s) Sexually active: Yes Do you think of yourself as: straight/heterosexual Current gender identity: decline to answer What is your relationship status?: living with partner How often do you talk on the phone with friends or family?: decline to answer How often do you get together with friends or relatives?: decline to answer How often do you attend roman catholic or christianity services?: decline to answer Do you belong to any clubs or organized social groups?: decline to answer Panel score (0-1 are the most socially isolated patients): 1 What type of physical activity do you participate in: walking Duration: 15-30 minutes/day Frequency: 3-4 times per week Ofelia/Catholic: Unknown Special ofelia needs: No Do you feel safe at home: Yes Do you feel safe in your relationship?: Yes Exam Const General: cooperative, healthy appearing, comfortable and no acute distress Orientation: alert and awake HENMT Head: normal to inspection, normocephalic and atraumatic Mouth: moist mucous membranes Eyes General: appearance normal, both eyes and all related structures Periorbital: periorbital findings normal Eyelids: eyelids normal and other (Left eyelid inverted, no foreign body visualized) Conjunctivae: conjunctivae normal Sclera: sclerae normal Cornea: fluorescein used (Visualized small uptake in the 4 o'clock position, no foreign body) Pupils: PERRL EOM: EOM intact bilaterally Direct ophthalmoscopy: normal light reflex Neck Neck: normal visual inspection, full ROM, trachea midline and supple Resp Effort & Inspection: normal respiratory effort and able to speak in complete sentences Skin General skin exam: no rashes or lesions noted Neuro General: alert, awake, moves all extremities and no focal motor deficits Sensory Exam: no sensory deficits noted Psych Appearance: grossly normal Mental Status: mental status grossly normal Course Vital Signs Vital signs: Vital Signs Temperature 36.5 C 07/31/19 09:07 Pulse 86 07/31/19 09:07 Respiratory Rate 14 07/31/19 09:07 Blood Pressure 118/71 07/31/19 09:07 Pulse Oximetry 97 07/31/19 09:07 Temperature 36.5 C 07/31/19 09:07 Temperature Source Tympanic 07/31/19 09:07 Pulse 86 07/31/19 09:07 Respiratory Rate 14 07/31/19 09:07 Respiratory Effort Non-Labored 07/31/19 09:09 Blood Pressure 118/71 07/31/19 09:07 Blood Pressure Position Sitting 07/31/19 09:07 Pulse Oximetry 97 07/31/19 09:07 Oxygen Delivery Method Room Air 07/31/19 09:07 Oxygen Flow Rate 0 07/31/19 09:07 Pain Level 3 07/31/19 09:07
--- NOTE | 2019-07-31 10:31 | NUR.NOTE ---
Nursing Note: Left eye was irrigated with audra lens and 0.9% NS Per provider order. Pt reports relief after irrigation.
--- NOTE | 2019-07-31 15:27 | NUR.NOTE ---
Referral and visit note faxed to [facility], [phone].Nursing Note:
== END 2019-07-31 10:30 | disposition home or self-care (01) ==
PROVIDERS: Emergency Provider Physician Assistant; PCP Family Medicine
DX: S05.01XD Injury of conjunctiva and corneal abrasion without foreign body, right eye, subsequent encounter (principal); S05.02XD Injury of conjunctiva and corneal abrasion without foreign body, left eye, subsequent encounter; X58.XXXD Exposure to other specified factors, subsequent encounter
CPT/HCPCS: 99284; 99283

== ENCOUNTER 2019-08-07 12:02 | Emergency (ER) | payer MEDICAID, SELFPAY ==
[2019-08-07 12:06] VITALS: BP 133/82; PULSE 78; RESP 16; TEMP 36.5; O2SAT 96
[2019-08-07] MEDS: Normal Saline 1,000 ML 1000 ML IV (12:30)
[2019-08-07] MEDS: Ondansetron 4 MG/2 ML VIAL IVP (12:30)
--- NOTE | 2019-08-07 12:30 | W.ED.GENAD ---
Discharge Plan Disposition Patient Disposition: HOME Condition: Improving Discharge Details Chief Complaint: Nausea/Vomit/Diar Clinical Impression: Gastroenteritis Primary Care Provider: Delfino Huang ED Provider: Faith Doll Home Meds and New Rx's Prescriptions: New ondansetron HCl [Zofran] 4 mg tablet 4 mg PO Q8H PRN (Reason: vomitting) Qty: 2 RF: 0 No Action methadone 40 mg tablet,soluble 80 mg PO DAILY RF: 0 Vyvanse 70 mg capsule 70 mg PO DAILY MDD 1 cap Qty: 30 RF: 0 Vyvanse 20 mg capsule 20 mg PO DAILY MDD 1 cap Qty: 30 RF: 0 polyethylene glycol 3350 [Miralax] 17 gram Powder In Packet 1 g PRN PRNRF: 0 promethazine 25 mg tablet 25 mg PO TID PRN (Reason: nausea and vomiting) Qty: 10 RF: 0 promethazine [Promethegan] 12.5 mg suppository 12.5 mg MT Q6H PRN (Reason: nausea and vomiting) Qty: 12 RF: 0 Discharge Instructions Instructions: Gastroenteritis (ED) Additional Instructions: Drink plenty of fluids. Use promethazine for nausea if needed. Zofran sublingual was provided only if needed for resistant vomiting. Please try to avoid using this medication unless needed due to the risk of cardiac effects and interaction with your methadone as discussed. Observe for any signs of dehydration. Rest activities as tolerated. No work for the next 2 days. Wash hands frequently and bathrooms used to prevent spread of infection. Return to the emergency room for worsening, concerns alarming symptoms, increase in abdominal pain, concerns of dehydration or if needed sooner Stand Alone Forms: Work Release Medical Decision Making Is a 23-year-old patient presenting with complaints of nausea vomiting and diarrhea which began acutely this morning. Patient reports approximately 5 episodes of vomiting and 5 episodes of diarrhea since onset. Denies blood in vomitus or bowel movements. Patient reports intermittent abdominal cramping relieved after bowel movements or vomiting. Denies abdominal pain currently. Patient is on methadone for history of drug use for which he has been clean for 1 year. Patient reports he did go to bar and get his methadone dosage this morning, he was able to hold her down went home slept then awoke with several episodes of vomiting and diarrhea. Patient is concerned predominantly with concern of dehydration at this time. Patient is due to see a GI doctor on Friday for history of chronic nausea and vomiting once weekly. Patient currently uses MiraLAX to counteract constipation associated with methadone. He reports he uses 1-1/2 caps of MiraLAX daily and always has loose stools. Patient denies any fevers or chills associated. Multiple ill contacts in his workplace with gastroenteritis currently. IV placed by nursing, plan to rehydrate We will plan to provide Zofran but will check EKG first. EKG reveals a marked sinus bradycardia with a rate of 45. Normal sinus rhythm with no significant ST segment changes. Patient with a QTC of 417. Will provide Zofran based on normal QTC at this time. Patient is feeling significantly improved at this time. No vomiting since arrival to the ER. Tolerated Zofran with no difficulty. Patient's labs reviewed and patient has no associated leukocytosis, CMP normal, noted glucose of 115. Magnesium normal. Patient's vital signs reviewed. Bradycardia improved, blood pressure normal. Patient requesting discharge home at this time. I will offer this patient 2 tablets of Zofran if needed for resistant vomiting however I have encouraged him to use promethazine first to control his symptoms. Patient made aware of risk of Zofran with interaction of methadone however as previously discussed his QTC is normal at this time. Patient reports his understanding and will preferably use promethazine for nausea control at home which he has. Patient does have follow-up with gastroenterology on Friday. Patient feels comfortable discharge home, has the urge to void and feels hydrated at this time. Abdominal exam remains benign. Patient remains afebrile. The patient was stable and requested discharge. Prior to discharge, my usual and customary return precautions were reviewed with the patient - this included follow-up instructions and reasons to return to the Emergency Department if conditions worsens, does not improve as expected, or other new concerns arise. HPI General Date/Time Provider Initiated Documentation: 08/07/19 12:12. HPI Narrative: Is a 23-year-old patient presenting for nausea vomiting and diarrhea which began this morning. Patient reports some restless sleeping last night but otherwise symptoms began early this morning. Patient reports approximately 4-5 episodes of vomiting which more recently has been bilious type vomiting with dry heaving. Patient reports similarly approximately 4-5 episodes of watery diarrhea this morning neither vomitus or bowel movements had noted blood. Patient reports intermittent abdominal cramping relieved after vomiting or bowel movements. Patient denies dizziness, fatigue or weakness. Patient does report he is feeling dehydrated at this time. Patient does report use of methadone, he did get his dose from [facility] this morning. Patient was able to hold down his methadone this morning went home slept and woke up vomiting. Patient denies dysuria, urgency or frequency. Patient denies any other concerns or complaints at this time. Patient denies any nasal congestion, sore throat or cough. No other upper respiratory symptoms. Denies fevers or chills. Patient does report several ill exposures at work with gastroenteritis including vomiting diarrhea. Patient denies back pain. Patient does report mild muscle cramping. Patient is due to see a welding machine operator on Friday due to chronic nausea. Patient does report chronic nausea and estimates approximately one episode of vomiting a week for which he is being evaluated. Patient reports his daily medications include methadone as well as PRN promethazine per rectal or orally as needed. Patient was unable to hold down promethazine this morning due to vomiting and was unable to use per rectal due to frequent diarrhea. Related Data Home Medications Medication Instructions Recorded Confirmed polyethylene glycol 3350 [Miralax] 1 g PRN PRN 03/31/19 08/07/19 methadone 40 mg soluble tablet 80 mg PO DAILY tab 04/02/19 08/07/19 promethazine 25 mg PO TID PRN #10 tab 05/29/19 08/07/19 promethazine [Promethegan] 12.5 mg MT Q6H PRN #12 each 06/29/19 08/07/19 lisdexamfetamine 20 mg capsule 20 mg PO DAILY #30 cap MDD 1 cap 07/21/19 08/07/19 lisdexamfetamine 70 mg capsule 70 mg PO DAILY #30 cap MDD 1 cap 07/21/19 08/07/19 ondansetron HCl [Zofran] 4 mg PO Q8H PRN #2 tab 08/07/19 Previous Rx's Medication Instructions Recorded promethazine 25 mg PO TID PRN #10 tab 05/29/19 promethazine [Promethegan] 12.5 mg MT Q6H PRN #12 each 06/29/19 lisdexamfetamine 20 mg capsule 20 mg PO DAILY #30 cap MDD 1 cap 07/21/19 lisdexamfetamine 70 mg capsule 70 mg PO DAILY #30 cap MDD 1 cap 07/21/19 ondansetron HCl [Zofran] 4 mg PO Q8H PRN #2 tab 08/07/19 Allergies Allergy/AdvReac Type Severity Reaction Status Date / Time docusate [From Senna-S] AdvReac Severe GI UPSET Verified 08/07/19 12:09 senna [From Senna-S] AdvReac Severe GI UPSET Verified 08/07/19 12:09 General Stated Complaint: Nausea/Vomit/Diar DAYRON: 3 Review of Systems All systems reviewed & are unremarkable except as noted in HPI and below Constitutional Constitutional: Denies chills, Denies fatigue, Denies fever(s), Denies headache(s) and Denies malaise ENT Ears, Nose, Mouth, and Throat: Denies otalgia, Denies headache(s), Denies nasal congestion, Denies sinus pain, Denies sinus pressure and Denies sore throat Cardiovascular Cardiovascular: Denies chest pain Respiratory Respiratory: Denies cough Gastrointestinal Gastrointestinal: Denies bloating, Denies constipation, Reports cramping (Intermittent), Reports diarrhea, Reports nausea and Reports vomiting Genitourinary Genitourinary: Denies hematuria, Denies dysuria, Denies urinary hesitancy and Denies urinary urgency Musculoskeletal Musculoskeletal: Reports myalgias, Denies numbness and Denies tingling Neurologic Neurologic: Denies headache(s), Denies numbness and Denies tingling Endocrine Endocrine: Denies fatigue [facility] Medical History Attention deficit hyperactivity disorder, combined type (Chronic) Cannabis abuse Gastroesophageal reflux disease with esophagitis (Inactive 10/10/16) 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) Mood disorder Recurrent vomiting (Acute) Tobacco use disorder Social History Smoking/Tobacco Use Status: Current every day Tobacco Type: cigars Quit status: not considering quitting Second Hand Exposure: Yes Alcohol Intake: current Alcohol Intake frequency: a few times a week Alcohol type: beer Drug use: Rarely Substance use type: marijuana Details: was a former substance user Caregiver/Support person: No Household members: other Details: Gram/mom Pets and animals: Yes Pets and animals: cat(s) and dog(s) Sexually active: Yes Do you think of yourself as: straight/heterosexual Current gender identity: decline to answer What is your relationship status?: living with partner How often do you talk on the phone with friends or family?: decline to answer How often do you get together with friends or relatives?: decline to answer How often do you attend baptism or christian services?: decline to answer Do you belong to any clubs or organized social groups?: decline to answer Panel score (0-1 are the most socially isolated patients): 1 What type of physical activity do you participate in: walking Duration: 15-30 minutes/day Frequency: 3-4 times per week Ofelia/Restoration: Unknown Special ofelia needs: No Do you feel safe at home: Yes Do you feel safe in your relationship?: Yes Exam Narrative Exam Narrative: CONST: Patient in no acute distress. Dry mucous membranes. Alert and oriented. HENMT: Head nomocephalic, normal to inspection. Atraumatic. Hearing grossly normal. Mild pharyngeal erythema, TM with mild erythema bilaterally w/o bulging. EYES: General normal appearance. Alignment normal. Eyelids normal. Conjunctiva normal. NECK: Normal visual inspection. FROM. Trachea midline. No Midline tenderness. Cervical lymphadenopathy is present. CHEST: Normal insepection of the chest. RESP: Normal respiratory effort. Speaking full sentences. No cough. No audible wheezing. No retractions. Breath sounds are clear, full and equal bilaterally. No wheezing, rhonchi or rales. CARDIO: No JVD. No murmur, regular rate and rhythm GI: No distention noted. Abdomen is soft, nontender. No peritoneal signs, rebound or guarding diffusely Back: No CVA tenderness noted bilaterally SKIN: Normal. Dry. No rashes. NEURO: Alert and awake. Speech clear. PSYCH: Normal affect. Cooperative. Course Vital Signs Vital signs: Vital Signs Temperature 36.5 C 08/07/19 12:06 Pulse 78 08/07/19 12:06 Respiratory Rate 16 08/07/19 12:06 Blood Pressure 133/82 08/07/19 12:06 Pulse Oximetry 96 08/07/19 12:06 Temperature 36.5 C 08/07/19 12:06 Temperature Source Skin 08/07/19 12:06 Pulse 78 08/07/19 12:06 Respiratory Rate 16 08/07/19 12:06 Respiratory Effort Non-Labored 08/07/19 12:06 Blood Pressure 133/82 08/07/19 12:06 Blood Pressure Position Sitting 08/07/19 12:06 Pulse Oximetry 96 08/07/19 12:06 Oxygen Delivery Method Room Air 08/07/19 12:06 Oxygen Flow Rate 0 08/07/19 12:06 Pain Level 3 08/07/19 12:06
[2019-08-07 12:43] LABS: Abs Immature Grans 0.02 k/cumm (0.0-0.09); Absolute Basophil Count 0.06 k/cumm (0.0-0.2); Absolute Eosinophil Count 0.11 k/cumm (0.0-0.7); Absolute Lymphocyte Count 2.42 k/cumm (1.2-3.4); Absolute Monocyte Count 0.55 k/cumm (0.11-0.7); Absolute Neutrophil Count 6.56 k/cumm (1.2-6.7); Basophils % 0.6; Eosinophils % 1.1; HCT 41.3 % (40.0-50.0); HGB 14.3 g/dL (13.5-17.5); Immature Grans % 0.2 %; Lymphocytes % 24.9; Mean Corp. HGB Concentration 34.6 g/dL (32.0-36.0); Mean Corpuscular Hemoglobin 33.6 pg (27.0-33.0); Mean Corpuscular Volume 96.9 fL (80-95); Mean Platelet Volume 10.8 fL (8.0-11.0); Monocytes % 5.7; Neutrophils % 67.5; Platelet Count 271 x1000/uL (130-400); RBC 4.26 m/cumm (4.50-6.00); RBC Distribution Width 11.8 % (11.8-14.1); White Blood Cell Count 9.72 k/cumm (4.4-10.8)
[2019-08-07 12:57] LABS: ALT 38 U/L (16-63); AST 33 U/L (15-37); Albumin 4.5 g/dL (3.4-5.0); Alkaline Phosphatase 84 U/L (46-116); Anion Gap 8.7 mmol/L (3-11); BUN 16 mg/dL (7-18); Bilirubin, Total 0.6 mg/dL (0.2-1.0); CO2 30.3 mmol/L (21.0-32.0); CREATININE 1.02 mg/dL (0.70-1.30); Calcium 8.6 mg/dL (8.5-10.1); Chloride 102 mmol/L (98-107); Glucose 115 mg/dL (74-106); Lipase 60 U/L (73-393); Magnesium 1.8 mg/dL (1.8-2.4); Potassium 3.5 mmol/L (3.5-5.1); Sodium 141 mmol/L (136-145); Total Protein 7.2 g/dL (6.4-8.2)
[2019-08-07 13:19] VITALS: BP 98/60; PULSE 68; RESP 16; TEMP 36.6; O2SAT 98
== END 2019-08-07 13:53 | disposition home or self-care (01) ==
PROVIDERS: Emergency Provider Physician Assistant; PCP Family Medicine
DX: K52.89 Other specified noninfective gastroenteritis and colitis (principal)
CPT/HCPCS: 80053; 83690; 96361; 96374; 99284; 83735; 85025; J2405

== ENCOUNTER 2019-08-13 04:34 | Emergency (ER) | payer MEDICAID, SELFPAY ==
[2019-08-13 04:39] VITALS: BP 134/79; PULSE 85; RESP 18; TEMP 36.5; O2SAT 98
--- NOTE | 2019-08-13 04:52 | W.ED.GENAD ---
Discharge Plan Disposition Patient Disposition: HOME Condition: Good Discharge Details Chief Complaint: Nausea/Vomit/Diar Clinical Impression: Cyclic vomiting syndrome Primary Care Provider: Delfino Huang ED Provider: Onofre Jorgensen Home Meds and New Rx's Prescriptions: New ondansetron HCl [Zofran] 4 mg tablet 4 mg PO Q8H Qty: 12 RF: 0 No Action methadone 40 mg tablet,soluble 80 mg PO DAILY RF: 0 Vyvanse 70 mg capsule 70 mg PO DAILY MDD 1 cap Qty: 30 RF: 0 Vyvanse 20 mg capsule 20 mg PO DAILY MDD 1 cap Qty: 30 RF: 0 polyethylene glycol 3350 [Miralax] 17 gram Powder In Packet 1 g PRN PRNRF: 0 promethazine 25 mg tablet 25 mg PO TID PRN (Reason: nausea and vomiting) Qty: 10 RF: 0 promethazine [Promethegan] 12.5 mg suppository 12.[address] Q6H PRN (Reason: nausea and vomiting) Qty: 12 RF: 0 ondansetron HCl [Zofran] 4 mg tablet 4 mg PO Q8H PRN (Reason: vomitting) Qty: 2 RF: 0 Discharge Instructions Instructions: Acute Nausea and Vomiting (ED) Additional Instructions: At this time I feel your symptoms are consistent with cyclic vomiting syndrome. Please drink plenty of fluids, take the Zofran as needed. 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 Stick with an easy diet of bread, rice, applesauce, and soup. If you notice any worsening of your symptoms, or any new symptoms such as vomiting, diarrhea, fever, chills, shortness of breath, chest pain, numbness, weakness, or fainting , please return immediately to the emergency department for reevaluation. Please follow up with your primary care provider as soon as possible for reassessment and reevaluation. As always, it was a pleasure participating in your medical care today. Stand Alone Forms: Work Release Referrals: Delfino Huang. [Primary Care Provider] - Medical Decision Making Pleasant 23-year-old male with a past medical history of cyclic vomiting syndrome as diagnosed by [place] gastro[facility]ology presents with symptoms concerning for this. He states that it is identical to his previous episodes. He admits to nausea, multiple episodes of dry heaving, and he denies retching or blood in his vomit. Symptoms began last night. He does occasionally still smoke marijuana. Exam demonstrates nontender nonsurgical abdomen. Dry mucous membranes. Vital signs otherwise stable. I did discuss imaging options for the patient and at this time through notable discussion, weighing the risks and benefits, and a shared decision making process the patient has refused imaging at this time. Patient is of an appropriate age to make decisions. The patient is of sound mind, appears clinically sober, and has capacity to make decisions by my clinical exam. Respecting the patient's wishes we will hold off on imaging. We will rehydrate, get a basic laboratory work-up, treat with Phenergan and Zofran as well as topical can space and reassess. 6 AM Laboratory work-up is returned, no abnormalities, lipase stable, no evidence of transaminitis or hyperbilirubinemia. No white count bandemia or left shift. Patient is feeling much better, tolerating p.o. well. Signs and symptoms clinically consistent with cyclic vomiting syndrome, and clinically inconsistent with an acute surgical abdomen. Discharged home with Zofran, recommend easy diet, close follow-up with gastroenterology. Discussed red flags which to return. I have extensively reviewed the treatment plan and discharge instructions with the patient and their family. I have addressed all patient concerns at this time. The patient and family was made aware of what symptoms to monitor for that would warrant a return to the emergency department. Discussed the plan with the patient and family, they demonstrate verbal understanding and agreement with our assessment and plan at this time. HPI General Date/Time Provider Initiated Documentation: 08/13/19 04:35. HPI Narrative: 23-year-old male with a past medical history of cyclic vomiting syndrome, diagnosed by gastroenterology in [place], presents today for vomiting and nausea. Patient states that symptoms feel identical to previous episodes, admits to nausea, multiple episodes of dry heaving, he denies any blood, retching, or coffee-ground emesis. He denies any fever chills or new medicines or foods. He does occasionally smoke marijuana to go to sleep at night. He has no other complaints at this time. He denies diarrhea, chest pain, shortness of breath or abdominal pain. Just the nausea. He denies any other sick contacts at home. Related Data Home Medications Medication Instructions Recorded Confirmed polyethylene glycol 3350 [Miralax] 1 g PRN PRN 03/31/19 08/13/19 methadone 40 mg soluble tablet 80 mg PO DAILY tab 04/02/19 08/13/19 promethazine 25 mg PO TID PRN #10 tab 05/29/19 08/13/19 promethazine [Promethegan] 12.[address] Q6H PRN #12 each 06/29/19 08/13/19 lisdexamfetamine 20 mg capsule 20 mg PO DAILY #30 cap MDD 1 cap 07/21/19 08/13/19 lisdexamfetamine 70 mg capsule 70 mg PO DAILY #30 cap MDD 1 cap 07/21/19 08/13/19 ondansetron HCl [Zofran] 4 mg PO Q8H PRN #2 tab 08/07/19 08/13/19 ondansetron HCl [Zofran] 4 mg PO Q8H #12 tab 08/13/19 Previous Rx's Medication Instructions Recorded promethazine 25 mg PO TID PRN #10 tab 05/29/19 promethazine [Promethegan] 12.[address] Q6H PRN #12 each 06/29/19 lisdexamfetamine 20 mg capsule 20 mg PO DAILY #30 cap MDD 1 cap 07/21/19 lisdexamfetamine 70 mg capsule 70 mg PO DAILY #30 cap MDD 1 cap 07/21/19 ondansetron HCl [Zofran] 4 mg PO Q8H PRN #2 tab 08/07/19 ondansetron HCl [Zofran] 4 mg PO Q8H #12 tab 08/13/19 Allergies Allergy/AdvReac Type Severity Reaction Status Date / Time docusate [From Senna-S] AdvReac Severe GI UPSET Verified 08/13/19 04:43 senna [From Senna-S] AdvReac Severe GI UPSET Verified 08/13/19 04:43 General Stated Complaint: Nausea/Vomit/Diar DAYRON: 3 Review of Systems All systems reviewed & are unremarkable except as noted in HPI and below PFSH Social History Smoking/Tobacco Use Status: Current every day Tobacco Type: cigarettes Quit status: not considering quitting Second Hand Exposure: Yes Alcohol Intake: current Alcohol Intake frequency: a few times a week Alcohol type: beer Drug use: Rarely Substance use type: marijuana Details: was a former substance user Caregiver/Support person: No Household members: other Details: Gram/mom Pets and animals: Yes Pets and animals: cat(s) and dog(s) Sexually active: Yes Do you think of yourself as: straight/heterosexual Current gender identity: decline to answer What is your relationship status?: living with partner How often do you talk on the phone with friends or family?: decline to answer How often do you get together with friends or relatives?: decline to answer How often do you attend holiness or restorationism services?: decline to answer Do you belong to any clubs or organized social groups?: decline to answer Panel score (0-1 are the most socially isolated patients): 1 What type of physical activity do you participate in: walking Duration: 15-30 minutes/day Frequency: 3-4 times per week Ofelia/Pentecostal: Unknown Special ofelia needs: No Do you feel safe at home: Yes Do you feel safe in your relationship?: Yes Exam Narrative Exam Narrative: 1.Const: Well-nourished, Well-developed, appearing stated age 2.Eyes: PERRL, no conjunctival injection, and symmetrical lids. 3.ENT: Atraumatic external nose and ears. Dry MM. Neck: Symmetric, trachea midline, No thyromegaly. 4.CVS: +S1/S2, No murmurs or gallops. Peripheral pulses 2+ and equal in all extremities. Brisk capillary refill in all extremities. 5.RESP: Unlabored respiratory effort. Clear to auscultation bilaterally. No wheezes rales or rhonchi 6.GI: Soft, Nontender/Nondistended, No hepatosplenomegaly. No guarding or rebound. No pain at McBurney's point, negative Grimaldo sign. Negative obturator and psoas sign. 7.MSK: Normocephalic/Atraumatic, Extremities w/o deformity or ttp No cyanosis or clubbing, Normal movement of all extremities 8.Skin: Warm, Dry. No rashes or lesions. 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 Sensation grossly intact, no focal neurologic deficits. 10.Psych: (AAO) x3. Appropriate mood and affect Course Vital Signs Vital signs: Vital Signs Temperature 36.5 C 08/13/19 04:39 Pulse 85 08/13/19 04:39 Respiratory Rate 18 08/13/19 04:39 Blood Pressure 134/79 08/13/19 04:39 Pulse Oximetry 98 08/13/19 04:39 Temperature 36.5 C 08/13/19 04:39 Temperature Source Skin 08/13/19 04:39 Pulse 85 08/13/19 04:39 Respiratory Rate 18 08/13/19 04:39 Blood Pressure 134/79 08/13/19 04:39 Pulse Oximetry 98 08/13/19 04:39 Oxygen Delivery Method Room Air 08/13/19 04:39 Oxygen Flow Rate 0 08/13/19 04:39 Pain Level 4 08/13/19 04:39
[2019-08-13] MEDS: Normal Saline 1,000 ML 1000 ML IV (04:58)
[2019-08-13] MEDS: Ondansetron 4 MG/2 ML VIAL IVP (04:59)
[2019-08-13 05:18] LABS: Abs Immature Grans 0.01 k/cumm (0.0-0.09); Absolute Basophil Count 0.05 k/cumm (0.0-0.2); Absolute Eosinophil Count 0.23 k/cumm (0.0-0.7); Absolute Lymphocyte Count 2.32 k/cumm (1.2-3.4); Absolute Monocyte Count 0.56 k/cumm (0.11-0.7); Absolute Neutrophil Count 2.86 k/cumm (1.2-6.7); Basophils % 0.8; Eosinophils % 3.8; HCT 42.8 % (40.0-50.0); HGB 14.5 g/dL (13.5-17.5); Immature Grans % 0.2 %; Lymphocytes % 38.5; Mean Corp. HGB Concentration 33.9 g/dL (32.0-36.0); Mean Corpuscular Hemoglobin 32.6 pg (27.0-33.0); Mean Corpuscular Volume 96.2 fL (80-95); Monocytes % 9.3; Neutrophils % 47.4; Platelet Count 252 x1000/uL (130-400); RBC 4.45 m/cumm (4.50-6.00); RBC Distribution Width 12.1 % (11.8-14.1); White Blood Cell Count 6.03 k/cumm (4.4-10.8)
[2019-08-13 05:32] LABS: ALT 44 U/L (16-63); AST 41 U/L (15-37); Albumin 4.2 g/dL (3.4-5.0); Alkaline Phosphatase 84 U/L (46-116); Anion Gap 6.7 mmol/L (3-11); BUN 12 mg/dL (7-18); Bilirubin, Total 0.3 mg/dL (0.2-1.0); CO2 30.3 mmol/L (21.0-32.0); CREATININE 0.91 mg/dL (0.70-1.30); Calcium 8.7 mg/dL (8.5-10.1); Chloride 103 mmol/L (98-107); Glucose 97 mg/dL (74-106); Lipase 81 U/L (73-393); Potassium 4.1 mmol/L (3.5-5.1); Sodium 140 mmol/L (136-145); Total Protein 7.1 g/dL (6.4-8.2)
[2019-08-13 05:56] VITALS: BP 104/70; PULSE 45; RESP 16; O2SAT 100
== END 2019-08-13 06:15 | disposition home or self-care (01) ==
PROVIDERS: Emergency Provider Student in an Organized Health Care Education/Training Program; PCP Family Medicine
DX: R11.15 Cyclical vomiting syndrome unrelated to migraine (principal); F12.10 Cannabis abuse, uncomplicated
CPT/HCPCS: 36415; 80053; 83690; 96361; 96365; 96375; 99284; 85025; 99283; J2405

== ENCOUNTER 2019-08-19 04:47 | Emergency (ER) | payer MEDICAID, SELFPAY ==
[2019-08-19 04:50] VITALS: BP 115/65; PULSE 73; RESP 20; TEMP 37; O2SAT 100
--- NOTE | 2019-08-19 05:03 | ED.GENADUL_ITS ---
Discharge Plan Disposition Patient Disposition: HOME Condition: Good Discharge Details Chief Complaint: Nausea/Vomit/Diar Clinical Impression: Cyclic vomiting syndrome Primary Care Provider: Delfino Huang ED Provider: Feliciano Garland Home Meds and New Rx's Prescriptions: Continued methadone 40 mg tablet,soluble 80 mg PO DAILY RF: 0 Vyvanse 70 mg capsule 70 mg PO DAILY MDD 1 cap Qty: 30 RF: 0 Vyvanse 20 mg capsule 20 mg PO DAILY MDD 1 cap Qty: 30 RF: 0 polyethylene glycol 3350 [Miralax] 17 gram Powder In Packet 1 g PRN PRNRF: 0 promethazine 25 mg tablet 25 mg PO TID PRN (Reason: nausea and vomiting) Qty: 10 RF: 0 pantoprazole 40 mg Tablet,Delayed Release (Dr/Ec) 40 mg PO DAILY RF: 0 promethazine [Promethegan] 12.5 mg suppository 12.5 mg [place] Q6H PRN (Reason: nausea and vomiting) Qty: 12 RF: 0 Discharge Instructions Additional Instructions: Resume previous medications. Clear liquid/bland diet for today. Return to ED if problems. Follow-up with primary care and GI as needed/scheduled. Referrals: Delfino Huang. [Primary Care Provider] - Medical Decision Making Patient with recurrent nausea/vomiting, diarrhea and abdominal cramping/pain with history of same. He has been seen by GI. I have reviewed that note. Patient typically responds to fluids and Phenergan. Will order same and reevaluate. No laboratory studies and less lack of response as typical. 05:50 - Patient feels much better. Will finish fluids and plan discharge. Co ntinue medications as before. Medical Records Medical records reviewed: Yes I reviewed the patient's medical records. HPI General Mode of arrival: ambulatory . Date/Time Provider Initiated Documentation: 08/19/19 05:03 . Limitations to Documentation: no limitations . Information obtained by: patient and RN notes reviewed . HPI Narrative: Patient presents to ED with nausea, vomiting and diarrhea that started a couple of hours ago. He has history of same and I have seen him multiple times for . He has seen a GI specialist recently. He was started on pantoprazole for GERD, but GI specialist feels this is likely cyclical vomiting syndrome. Does not feel that it is marijuana hyperemesis syndrome. Patient reports symptoms exactly the same as previous. He had not been ill prior to this. He has no fever. He has no hematochezia or hematemesis. He does have diffuse abdominal cramping. Related Data Home Medications Medication Instructions Recorded Confirmed polyethylene glycol 3350 [Miralax] 1 g PRN PRN 03/31/19 08/19/19 methadone 40 mg soluble tablet 80 mg PO DAILY tab 04/02/19 08/19/19 promethazine 25 mg PO TID PRN #10 tab 05/29/19 08/19/19 promethazine [Promethegan] 12.5 mg AK Q6H PRN #12 each 06/29/19 08/19/19 lisdexamfetamine 20 mg capsule 20 mg PO DAILY #30 cap MDD 1 cap 08/18/19 08/19/19 lisdexamfetamine 70 mg capsule 70 mg PO DAILY #30 cap MDD 1 cap 08/18/19 08/19/19 pantoprazole 40 mg PO DAILY 08/19/19 08/19/19 Previous Rx's Medication Instructions Recorded promethazine 25 mg PO TID PRN #10 tab 05/29/19 promethazine [Promethegan] 12.5 mg AK Q6H PRN #12 each 06/29/19 lisdexamfetamine 20 mg capsule 20 mg PO DAILY #30 cap MDD 1 cap 08/18/19 lisdexamfetamine 70 mg capsule 70 mg PO DAILY #30 cap MDD 1 cap 08/18/19 Allergies Allergy/AdvReac Type Severity Reaction Status Date / Time docusate [From Senna-S] AdvReac Severe GI UPSET Verified 08/19/19 04:52 senna [From Senna-S] AdvReac Severe GI UPSET Verified 08/19/19 04:52 General Stated Complaint: Nausea/Vomit/Diar DAYRON: 3 Review of Systems Narrative: As documented in HPI otherwise negative as below. Const: no fever, chills, weakness Resp: no cough, SOB, pleuritic pain CV: no CP, diaphoresis, edema, syncope GI: abdominal pain, nausea, vomiting, diarrhea Neuro: no headache, numbness, focal weakness, confusion PFSH Social History Smoking/Tobacco Use Status: Current every day Tobacco Type: cigarettes Quit status: not considering quitting Second Hand Exposure: Yes Alcohol Intake: current Alcohol Intake frequency: a few times a week Alcohol type: beer Drug use: Occasionally Substance use type: marijuana Details: was a former substance user Caregiver/Support person: No Household members: other Details: Gram/mom Pets and animals: Yes Pets and animals: cat(s) and dog(s) Sexually active: Yes Do you think of yourself as: straight/heterosexual Current gender identity: decline to answer What is your relationship status?: living with partner How often do you talk on the phone with friends or family?: decline to answer How often do you get together with friends or relatives?: decline to answer How often do you attend cheondoism or restorationism services?: decline to answer Do you belong to any clubs or organized social groups?: decline to answer Panel score (0-1 are the most socially isolated patients): 1 What type of physical activity do you participate in: walking Duration: 15-30 minutes/day Frequency: 3-4 times per week Ofelia/Temple: Unknown Special ofelia needs: No Do you feel safe at home: Yes Do you feel safe in your relationship?: Yes Exam Narrative Exam Narrative: Vitals: Afebrile with normal vitals and normal room air pulse oximetry. Const: Thin male in NAD. HEENT: NC/AT. Normal facial exam. Eyes: Normal conjunctiva and sclera. Neck: Supple. Trachea midline. Lungs: Normal respiratory effort. GI: Soft. NT/ND. No guarding or rebound. Neuro: A+O x 3. Normal speech, mentation, gait. Cranial nerves II - XII grossly intact. No gross motor or sensory deficit. Ext: No C/C/E. Skin: Warm and dry without rash. Course Vital Signs Vital signs: Vital Signs Temperature 98.6 F 08/19/19 04:50 Pulse 73 08/19/19 04:50 Respiratory Rate 20 08/19/19 04:50 Blood Pressure 115/65 08/19/19 04:50 Pulse Oximetry 100 08/19/19 04:50 Temperature 98.6 F 08/19/19 04:50 Temperature Source Temporal Artery Scan 08/19/19 04:50 Pulse 73 08/19/19 04:50 Respiratory Rate 20 08/19/19 04:50 Respiratory Effort Non-Labored 08/19/19 04:53 Blood Pressure 115/65 08/19/19 04:50 Blood Pressure Position Sitting 08/19/19 04:50 Pulse Oximetry 100 08/19/19 04:50 Oxygen Delivery Method Room Air 08/19/19 04:50 Oxygen Flow Rate 0 08/19/19 04:50 Pain Level 5 08/19/19 04:50
[2019-08-19] MEDS: Lactated Ringers 1,000 ML 1000 ML IV (05:12)
[2019-08-19] MEDS: Normal Saline Flush 10 ML SYR IVP (05:12)
[2019-08-19 06:37] VITALS: BP 115/65; PULSE 73; RESP 20; TEMP 37; O2SAT 100
== END 2019-08-19 06:33 | disposition home or self-care (01) ==
PROVIDERS: Emergency Provider Emergency Medicine; PCP Family Medicine
DX: R11.15 Cyclical vomiting syndrome unrelated to migraine (principal)
CPT/HCPCS: 96361; 96365; 99284; 99283

== ENCOUNTER 2019-08-29 21:03 | Emergency (ER) | payer MEDICAID, SELFPAY ==
[2019-08-29 21:06] VITALS: BP 124/70; PULSE 86; RESP 14; TEMP 36.8; O2SAT 96
--- NOTE | 2019-08-29 21:26 | W.ED.GENAD ---
Discharge Plan Disposition Patient Disposition: HOME Condition: Stable Discharge Details Chief Complaint: Nausea/Vomit/Diar Clinical Impression: Cyclic vomiting syndrome Primary Care Provider: Delfino Huang ED Provider: Pablo Barrios [place] Meds and New Rx's Prescriptions: New ondansetron 4 mg tablet,disintegrating 4 mg PO Q8H PRN (Reason: nausea and vomiting) Qty: 30 RF: 0 Continued promethazine 6.25 mg/5 mL syrup 12.5 mg PO TID PRN (Reason: nausea and vomiting) Qty: 250 RF: 0 methadone 40 mg tablet,soluble 80 mg PO DAILY RF: 0 Vyvanse 70 mg capsule 70 mg PO DAILY MDD 1 cap Qty: 30 RF: 0 Vyvanse 20 mg capsule 20 mg PO DAILY MDD 1 cap Qty: 30 RF: 0 polyethylene glycol 3350 [Miralax] 17 gram Powder In Packet 1 g PRN PRNRF: 0 pantoprazole 40 mg Tablet,Delayed Release (Dr/Ec) 40 mg PO DAILY RF: 0 promethazine 25 mg tablet 25 mg PO TID PRN (Reason: nausea and vomiting) Qty: 10 RF: 0 promethazine [Promethegan] 12.5 mg suppository 12.5 mg [place] Q6H PRN (Reason: nausea and vomiting) Qty: 12 RF: 0 Discharge Instructions Additional Instructions: follow up with your primary care provider within 1-2 weeks if you have persistent vomit or severe worsening pain return to the emergency department for reevaluation Medical Decision Making 23 yo male with hx of cyclic vomit syndrome, prior substance abuse on methadone, who comes in with n/v and intermittent abdominal cramping similar to prior episodes of his cyclic vomit. Denies fevers, chills, chest pain, sob, cough, travel. He arrives HD stable. HAs soft nondistended nontender abdomen on exam. No focal neuro deficits. Suspect this is due to his cyclic vomit, will tx with ivf and phenergan. No findings on abdominal exam to suggest pathology such as sbo, appendicitis, cholecystitis, and denies alcohol use and given no abdominal pain now doubt pancreatitis. pt feeling better, tolerating PO and no abdominal pain or tenderness on exam. He states bert bishop has helped and requested this. Will send him home with this and prescription for zofran and phenergan. REturn precautions given Medical Records Medical records reviewed: Yes I reviewed the patient's medical records. Lab Data Lab results reviewed: Yes I reviewed the patient's lab results. HPI General Mode of arrival: ambulatory. Date/Time Provider Initiated Documentation: 08/29/19 21:04. Limitations to Documentation: no limitations. Information obtained by: patient. History of Present Illness 23 year old M presents to the emergency department with the chief complaint of nausea and vomit, described as moderate, Patient started experiencing this hour(s) (2) and it has been constant. No relieving factors improve symptom(s), No exacerbating factors reported . Patient notes denies fever/chills. Patient did receive the following treatments prior to arrival, none Related Data Home Medications Medication Instructions Recorded Confirmed polyethylene glycol 3350 [Miralax] 1 g PRN PRN 03/31/19 08/29/19 methadone 40 mg soluble tablet 80 mg PO DAILY tab 04/02/19 08/29/19 promethazine [Promethegan] 12.5 mg [place] Q6H PRN #12 each 06/29/19 08/29/19 lisdexamfetamine 20 mg capsule 20 mg PO DAILY #30 cap MDD 1 cap 08/18/19 08/29/19 lisdexamfetamine 70 mg capsule 70 mg PO DAILY #30 cap MDD 1 cap 08/18/19 08/29/19 pantoprazole 40 mg PO DAILY 08/19/19 08/29/19 promethazine 6.25 mg/5 mL oral 12.5 mg PO TID PRN #250 ml 08/24/19 08/29/19 syrup ondansetron 4 mg PO Q8H PRN #30 tab 08/29/19 promethazine 25 mg PO TID PRN #10 tab 08/29/19 Previous Rx's Medication Instructions Recorded promethazine [Promethegan] 12.5 mg TN Q6H PRN #12 each 06/29/19 lisdexamfetamine 20 mg capsule 20 mg PO DAILY #30 cap MDD 1 cap 08/18/19 lisdexamfetamine 70 mg capsule 70 mg PO DAILY #30 cap MDD 1 cap 08/18/19 promethazine 6.25 mg/5 mL oral 12.5 mg PO TID PRN #250 ml 08/24/19 syrup ondansetron 4 mg PO Q8H PRN #30 tab 08/29/19 promethazine 25 mg PO TID PRN #10 tab 08/29/19 Allergies Allergy/AdvReac Type Severity Reaction Status Date / Time docusate [From Senna-S] AdvReac Severe GI UPSET Verified 08/29/19 21:11 senna [From Senna-S] AdvReac Severe GI UPSET Verified 08/29/19 21:11 General Stated Complaint: Nausea/Vomit/Diar DAYRON: 3 Review of Systems All systems reviewed & are unremarkable except as noted in HPI and below Constitutional Constitutional: Denies chills, Denies fever(s) and Denies weakness Cardiovascular Cardiovascular: Denies chest pain and Denies dyspnea Respiratory Respiratory: Denies cough and Denies dyspnea Musculoskeletal Musculoskeletal: Denies joint swelling Neurologic Neurologic: Denies weakness Psychiatric Psychiatric: Denies depression [facility] Social History Smoking/Tobacco Use Status: Current every day Tobacco Type: cigarettes Quit status: not considering quitting Second Hand Exposure: Yes Alcohol Intake: current Alcohol Intake frequency: a few times a month Alcohol type: beer Drug use: Occasionally Substance use type: marijuana Details: was a former substance user Caregiver/Support person: No Household members: other Details: Gram/mom Pets and animals: Yes Pets and animals: cat(s) and dog(s) Sexually active: Yes Do you think of yourself as: straight/heterosexual Current gender identity: decline to answer What is your relationship status?: living with partner How often do you talk on the phone with friends or family?: decline to answer How often do you get together with friends or relatives?: decline to answer How often do you attend hindu or pentecostalism services?: decline to answer Do you belong to any clubs or organized social groups?: decline to answer Panel score (0-1 are the most socially isolated patients): 1 What type of physical activity do you participate in: walking Duration: 15-30 minutes/day Frequency: 3-4 times per week Ofelia/Confucianism: Unknown Special ofelia needs: No Do you feel safe at home: Yes Do you feel safe in your relationship?: Yes Exam Const General: no acute distress Orientation: alert HENMT Head: normal to inspection Ears: external ears normal General nose exam: external nose normal Mouth: moist mucous membranes Eyes General: appearance normal, both eyes and all related structures Neck Neck: normal visual inspection Resp Effort & Inspection: normal respiratory effort and able to speak in complete sentences Cardio Rate: regular rate GI Palpation: soft and nontender Skin General skin exam: no rashes or lesions noted Neuro General: patient alert and patient oriented x3 Extrem General: normal to inspection Psych Mental Status: mental status grossly normal Course Vital Signs Vital signs: Vital Signs Temperature 36.8 C 08/29/19 21:06 Pulse 86 08/29/19 21:06 Respiratory Rate 14 08/29/19 21:06 Blood Pressure 124/70 08/29/19 21:06 Pulse Oximetry 96 08/29/19 21:06 Temperature 36.8 C 08/29/19 21:06 Temperature Source Oral 08/29/19 21:06 Pulse 86 08/29/19 21:06 Respiratory Rate 14 08/29/19 21:06 Respiratory Effort Non-Labored 08/29/19 21:13 Blood Pressure 124/70 08/29/19 21:06 Blood Pressure Position Sitting 08/29/19 21:06 Pulse Oximetry 96 08/29/19 21:06 Oxygen Delivery Method Room Air 08/29/19 21:06 Oxygen Flow Rate 0 08/29/19 21:06 Pain Level 6 08/29/19 21:06
[2019-08-29] MEDS: Normal Saline 1,000 ML 1000 ML IV (21:29)
[2019-08-29 21:39] LABS: Abs Immature Grans 0.02 k/cumm (0.0-0.09); Absolute Basophil Count 0.07 k/cumm (0.0-0.2); Absolute Eosinophil Count 0.22 k/cumm (0.0-0.7); Absolute Lymphocyte Count 3.33 k/cumm (1.2-3.4); Absolute Neutrophil Count 5.25 k/cumm (1.2-6.7); Basophils % 0.7; Eosinophils % 2.3; HCT 40.2 % (40.0-50.0); HGB 14.1 g/dL (13.5-17.5); Immature Grans % 0.2 %; Lymphocytes % 34.7; Mean Corp. HGB Concentration 35.1 g/dL (32.0-36.0); Mean Corpuscular Hemoglobin 33.8 pg (27.0-33.0); Mean Corpuscular Volume 96.4 fL (80-95); Mean Platelet Volume 10.6 fL (8.0-11.0); Monocytes % 7.3; Neutrophils % 54.8; Platelet Count 253 x1000/uL (130-400); RBC 4.17 m/cumm (4.50-6.00); RBC Distribution Width 11.9 % (11.8-14.1); White Blood Cell Count 9.59 k/cumm (4.4-10.8)
[2019-08-29 21:53] LABS: ALT 39 U/L (16-63); AST 31 U/L (15-37); Albumin 3.9 g/dL (3.4-5.0); Alkaline Phosphatase 73 U/L (46-116); Anion Gap 8.5 mmol/L (3-11); BUN 11 mg/dL (7-18); Bilirubin, Total 0.2 mg/dL (0.2-1.0); CO2 29.5 mmol/L (21.0-32.0); CREATININE 1.05 mg/dL (0.70-1.30); Calcium 8.4 mg/dL (8.5-10.1); Chloride 102 mmol/L (98-107); Glucose 77 mg/dL (74-106); Potassium 3.8 mmol/L (3.5-5.1); Sodium 140 mmol/L (136-145); Total Protein 6.9 g/dL (6.4-8.2)
[2019-08-29 22:14] VITALS: BP 91/45; PULSE 67; TEMP 37.1; O2SAT 95
[2019-08-29] MEDS: Ondansetron O.D.T. 4 MG TABEF, 3 TABS/BTL PO (22:17)
== END 2019-08-29 22:20 | disposition home or self-care (01) ==
PROVIDERS: Emergency Provider Emergency Medicine; PCP Family Medicine
DX: R11.15 Cyclical vomiting syndrome unrelated to migraine (principal)
CPT/HCPCS: 36415; 80053; 96361; 96365; 99284; 85025

== ENCOUNTER 2019-09-12 06:05 | Emergency (ER) | payer MEDICAID, SELFPAY ==
[2019-09-12 06:11] VITALS: BP 117/61; PULSE 87; RESP 16; TEMP 37.2; O2SAT 97
--- NOTE | 2019-09-12 06:17 | W.ED.GENAD ---
Discharge Plan Disposition Patient Disposition: HOME Condition: Good Discharge Details Chief Complaint: Nausea/Vomit/Diar Clinical Impression: Cyclic vomiting syndrome Primary Care Provider: Delfino Huang ED Provider: Onofre Jorgensen Home Meds and New Rx's Prescriptions: No Action methadone 40 mg tablet,soluble 80 mg PO DAILY RF: 0 Vyvanse 70 mg capsule 70 mg PO DAILY MDD 1 cap Qty: 30 RF: 0 Vyvanse 20 mg capsule 20 mg PO DAILY MDD 1 cap Qty: 30 RF: 0 polyethylene glycol 3350 [Miralax] 17 gram Powder In Packet 1 g PRN PRNRF: 0 ondansetron 4 mg tablet,disintegrating 4 mg PO Q8H PRN (Reason: nausea and vomiting) Qty: 30 RF: 0 promethazine 25 mg tablet 25 mg PO TID PRN (Reason: nausea and vomiting) Qty: 10 RF: 0 Discharge Instructions Instructions: Acute Nausea and Vomiting (ED) Additional Instructions: Your signs and symptoms are consistent with your cyclic vomiting syndrome. Even though you take the methadone it is okay to take an occasional Phenergan or Zofran at home as needed if you have these episodes. 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 If you notice any worsening of your symptoms, or any new symptoms such as vomiting, diarrhea, fever, chills, shortness of breath, chest pain, numbness, weakness, or fainting , please return immediately to the emergency department for reevaluation. Please follow up with your primary care provider as soon as possible for reassessment and reevaluation. As always, it was a pleasure participating in your medical care today. Referrals: Delfino Huang [Primary Care Provider] - Medical Decision Making 23-year-old male with a past medical history of cyclic vomiting syndrome as diagnosed by [facility] who has an appointment in 1 week for follow-up with them, presents today for nausea and vomiting that started 2 hours ago. Patient states that symptoms feel identical to previous episodes, he has had a few episodes and visits for this recently. Unfortunately during his last 2 visits he has not been taking his Phenergan secondary to recommendations not to take this at all because he takes methadone. He denies any other complaints, he denies any hematemesis, diarrhea, numbness tingling or weakness. He denies any blood, or other new medications or drugs. He does still occasionally smoke marijuana. No other complaints at this time. No other modifying factors. Patient denies any significant abdominal pain in general, but does admit to mild abdominal achiness, consistent with prior events. Physical exam demonstrates no focal abdominal tenderness, no evidence of an acute surgical abdomen. Genital exam demonstrates no genital tenderness, symptoms inconsistent with testicular torsion. I did discuss imaging options for the patient and at this time through notable discussion, weighing the risks and benefits, and a shared decision making process the patient has refused imaging at this time. Patient is of an appropriate age to make decisions. The patient is of sound mind, appears clinically sober, and has capacity to make decisions by my clinical exam. Respecting the patient's wishes we will hold off on imaging. Patient signs and symptoms at this time appear clinically consistent with cyclic vomiting syndrome. We will rehydrate, give Zofran Phenergan. Review of the patient's prior EKG shows no evidence of significant concerning QT prolongation, and I do feel that antiemetics are certainly both indicated and reasonable at this time. I also had a long discussion with the patient regarding risks and benefits in the future, and I do feel that it would be reasonable to try and continue to use the Phenergan or Zofran at home if needed for these acute events. Patient states that he still does have these medications at home and does not need refills. 7:30 AM Patient laboratory work-up is returned unremarkable, lipase normal, no significant electrolyte abnormalities, patient tolerated the fluid bolus well, patient has complete resolution of his symptoms, feels well and is requesting discharge, no abdominal tenderness on repeat exam, no signs of an acute surgical abdomen. This time patient symptoms consistent with his vomiting syndrome, we do recommend avoidance of any marijuana products, I also encouraged him that he could take the Phenergan or Zofran as needed at home especially given that his previous QTs were within normal limits. Discussed red flags for which to return. He does have an appointment with his boat dispatcher this week, recommend continued follow-up with him. I have extensively reviewed the treatment plan and discharge instructions with the patient. I have addressed all patient concerns at this time. The patient was made aware of what symptoms to monitor for that would warrant a return to the emergency department. Discussed the plan with the patient, they demonstrate verbal understanding and agreement with our assessment and plan at this time. HPI General Date/Time Provider Initiated Documentation: 09/12/19 06:06. HPI Narrative: 23-year-old male with a past medical history of cyclic vomiting syndrome as diagnosed by [facility] who has an appointment in 1 week for follow-up with them, presents today for nausea and vomiting that started 2 hours ago. Patient states that symptoms feel identical to previous episodes, he has had a few episodes and visits for this recently. Unfortunately during his last 2 visits he has not been taking his Phenergan secondary to recommendations not to take this at all because he takes methadone. He denies any other complaints, he denies any hematemesis, diarrhea, numbness tingling or weakness. He denies any blood, or other new medications or drugs. He does still occasionally smoke marijuana. No other complaints at this time. No other modifying factors. Patient denies any significant abdominal pain in general, but does admit to mild abdominal achiness, consistent with prior events. Related Data Home Medications Medication Instructions Recorded Confirmed polyethylene glycol 3350 [Miralax] 1 g PRN PRN 03/31/19 09/12/19 methadone 40 mg soluble tablet 80 mg PO DAILY tab 04/02/19 09/12/19 lisdexamfetamine 20 mg capsule 20 mg PO DAILY #30 cap MDD 1 cap 08/18/19 09/12/19 lisdexamfetamine 70 mg capsule 70 mg PO DAILY #30 cap MDD 1 cap 08/18/19 09/12/19 ondansetron 4 mg PO Q8H PRN #30 tab 08/29/19 09/12/19 promethazine 25 mg PO TID PRN #10 tab 08/29/19 09/12/19 Previous Rx's Medication Instructions Recorded lisdexamfetamine 20 mg capsule 20 mg PO DAILY #30 cap MDD 1 cap 08/18/19 lisdexamfetamine 70 mg capsule 70 mg PO DAILY #30 cap MDD 1 cap 08/18/19 ondansetron 4 mg PO Q8H PRN #30 tab 08/29/19 promethazine 25 mg PO TID PRN #10 tab 08/29/19 Allergies Allergy/AdvReac Type Severity Reaction Status Date / Time docusate [From Senna-S] AdvReac Severe GI UPSET Verified 08/29/19 21:11 senna [From Senna-S] AdvReac Severe GI UPSET Verified 08/29/19 21:11 General Stated Complaint: Nausea/Vomit/Diar DAYRON: 3 Review of Systems All systems reviewed & are unremarkable except as noted in HPI and below PFSH Social History Smoking/Tobacco Use Status: Current every day Tobacco Type: cigarettes Quit status: not considering quitting Second Hand Exposure: Yes Alcohol Intake: current Alcohol Intake frequency: a few times a month Alcohol type: beer Drug use: Occasionally Substance use type: marijuana Details: was a former substance user Caregiver/Support person: No Household members: other Details: Gram/mom Pets and animals: Yes Pets and animals: cat(s) and dog(s) Sexually active: Yes Do you think of yourself as: straight/heterosexual Current gender identity: decline to answer What is your relationship status?: living with partner How often do you talk on the phone with friends or family?: decline to answer How often do you get together with friends or relatives?: decline to answer How often do you attend quaker or anglican services?: decline to answer Do you belong to any clubs or organized social groups?: decline to answer Panel score (0-1 are the most socially isolated patients): 1 What type of physical activity do you participate in: walking Duration: 15-30 minutes/day Frequency: 3-4 times per week Ofelia/Zoroastrianism: Unknown Special ofelia needs: No Do you feel safe at home: Yes Do you feel safe in your relationship?: Yes Exam Narrative Exam Narrative: 1.Const: Well-nourished, Well-developed, appearing stated age 2.Eyes: PERRL, no conjunctival injection, and symmetrical lids. 3.ENT: Atraumatic external nose and ears. Moist MM. Neck: Symmetric, trachea midline, No thyromegaly. 4.CVS: +S1/S2, No murmurs or gallops. Peripheral pulses 2+ and equal in all extremities. Brisk capillary refill in all extremities. 5.RESP: Unlabored respiratory effort. Clear to auscultation bilaterally. No wheezes rales or rhonchi 6.GI: Soft, Nondistended, No hepatosplenomegaly. No guarding or rebound. No significant tenderness throughout, mild generalized tenderness, no pain at McBurney's point, and no evidence of an acute surgical abdomen. No testicular or scrotal tenderness. 7.MSK: Normocephalic/Atraumatic, Extremities w/o deformity or ttp No cyanosis or clubbing, Normal movement of all extremities 8.Skin: Warm, Dry. No rashes or lesions. 9.Neuro: chair inspector II-XII grossly intact. Sensation grossly intact, no focal neurologic deficits. 10.Psych: (AAO) x3. Appropriate mood and affect Course Vital Signs Vital signs: Vital Signs Temperature 37.2 C 09/12/19 06:11 Pulse 87 09/12/19 06:11 Respiratory Rate 16 09/12/19 06:11 Blood Pressure 117/61 09/12/19 06:11 Pulse Oximetry 97 09/12/19 06:11 Temperature 37.2 C 09/12/19 06:11 Temperature Source Skin 09/12/19 06:11 Pulse 87 09/12/19 06:11 Respiratory Rate 16 09/12/19 06:11 Respiratory Effort 09/12/19 06:14 Blood Pressure 117/61 09/12/19 06:11 Blood Pressure Position Sitting 09/12/19 06:11 Pulse Oximetry 97 09/12/19 06:11 Oxygen Delivery Method Room Air 09/12/19 06:11 Oxygen Flow Rate 0 09/12/19 06:11 Pain Level 4 09/12/19 06:11
[2019-09-12 06:29] LABS: Abs Immature Grans 0.01 k/cumm (0.0-0.09); Absolute Basophil Count 0.06 k/cumm (0.0-0.2); Absolute Lymphocyte Count 3.31 k/cumm (1.2-3.4); Absolute Monocyte Count 0.74 k/cumm (0.11-0.7); Basophils % 0.7; Eosinophils % 3.5; HCT 42.6 % (40.0-50.0); HGB 14.7 g/dL (13.5-17.5); Immature Grans % 0.1 %; Lymphocytes % 38.8; Mean Corp. HGB Concentration 34.5 g/dL (32.0-36.0); Mean Corpuscular Hemoglobin 33.3 pg (27.0-33.0); Mean Corpuscular Volume 96.4 fL (80-95); Mean Platelet Volume 10.7 fL (8.0-11.0); Monocytes % 8.7; Neutrophils % 48.2; Platelet Count 240 x1000/uL (130-400); RBC 4.42 m/cumm (4.50-6.00); RBC Distribution Width 12.4 % (11.8-14.1); White Blood Cell Count 8.52 k/cumm (4.4-10.8)
[2019-09-12] MEDS: Ondansetron 4 MG/2 ML VIAL IVP (06:30)
[2019-09-12] MEDS: Normal Saline 1,000 ML 1000 ML IV (06:30)
[2019-09-12 06:44] LABS: ALT 29 U/L (16-63); AST 24 U/L (15-37); Alkaline Phosphatase 72 U/L (46-116); BUN 10 mg/dL (7-18); Bilirubin, Total 0.3 mg/dL (0.2-1.0); CREATININE 1.02 mg/dL (0.70-1.30); Calcium 8.9 mg/dL (8.5-10.1); Chloride 104 mmol/L (98-107); Glucose 83 mg/dL (74-106); Lipase 99 U/L (73-393); Potassium 4.2 mmol/L (3.5-5.1); Sodium 141 mmol/L (136-145); Total Protein 6.9 g/dL (6.4-8.2)
[2019-09-12 07:26] VITALS: BP 111/71; PULSE 51; RESP 16; O2SAT 100
== END 2019-09-12 07:27 | disposition home or self-care (01) ==
LOC: ER 06:33
PROVIDERS: Emergency Provider Student in an Organized Health Care Education/Training Program; PCP Family Medicine
DX: R11.15 Cyclical vomiting syndrome unrelated to migraine (principal)
CPT/HCPCS: 80053; 83690; 96361; 96365; 96375; 99284; 85025; J2405

== ENCOUNTER 2019-09-16 05:37 | Emergency (ER) | payer MEDICAID, SELFPAY ==
[2019-09-16 05:42] VITALS: BP 122/67; PULSE 101; RESP 18; TEMP 36.8; O2SAT 98
--- NOTE | 2019-09-16 05:47 | W.ED.GENAD ---
Discharge Plan Disposition Patient Disposition: HOME Condition: Good Discharge Details Chief Complaint: Abd Prob Clinical Impression: Cyclic vomiting syndrome Primary Care Provider: Delfino Huang ED Provider: Feliciano Garland Home Meds and New Rx's Prescriptions: Continued methadone 40 mg tablet,soluble 80 mg PO DAILY RF: 0 Vyvanse 70 mg capsule 70 mg PO DAILY MDD 1 cap Qty: 30 RF: 0 Vyvanse 20 mg capsule 20 mg PO DAILY MDD 1 cap Qty: 30 RF: 0 polyethylene glycol 3350 [Miralax] 17 gram Powder In Packet 1 g PRN PRNRF: 0 ondansetron 4 mg tablet,disintegrating 4 mg PO Q8H PRN (Reason: nausea and vomiting) Qty: 30 RF: 0 promethazine 25 mg tablet 25 mg PO TID PRN (Reason: nausea and vomiting) Qty: 10 RF: 0 Discharge Instructions Additional Instructions: Liquid/bland diet today. Resume previous medications. Follow-up with primary care as needed. Return to ED for fever, shortness of breath, persistent vomiting, new or worsening abdominal pain. Referrals: Delfino Huang. [Primary Care Provider] - Medical Decision Making Patient presenting with similar symptoms to previous episodes of vomiting, diarrhea and abdominal pain. He is afebrile. Vital signs are essentially normal. Abdomen is mildly tender throughout but nonsurgical. Typically responds to fluids and Phenergan. At this point no laboratory testing needed. Simply treat and reevaluate. Patient better after fluids and medications. No more nausea and minimal abdominal discomfort. To be discharged home to resume previous medical regimen and follow-up with PCP as needed. Return to ED for fever, difficulty breathing, recurrent/persistent vomiting, new or worsening abdominal pain. HPI General Mode of arrival: ambulatory. Date/Time Provider Initiated Documentation: 09/16/19 05:46. Limitations to Documentation: no limitations. Information obtained by: patient and RN notes reviewed. HPI Narrative: Patient presents to the ED with nausea and vomiting, abdominal pain, some diarrhea. He has had this multiple times in the past. I have seen him a number of times for this. He actually has tried for the last 24 hours to manage this at home as he did not want to come to the ED. He has been seen by GI. Currently felt to likely have cyclical vomiting syndrome. He has no fever, cough, shortness of breath. He otherwise feels well. He has had some success with watered-down Gatorade but otherwise nothing by mouth. Related Data Home Medications Medication Instructions Recorded Confirmed polyethylene glycol 3350 [Miralax] 1 g PRN PRN 03/31/19 09/12/19 methadone 40 mg soluble tablet 80 mg PO DAILY tab 04/02/19 09/12/19 lisdexamfetamine 20 mg capsule 20 mg PO DAILY #30 cap MDD 1 cap 08/18/19 09/12/19 lisdexamfetamine 70 mg capsule 70 mg PO DAILY #30 cap MDD 1 cap 08/18/19 09/12/19 ondansetron 4 mg PO Q8H PRN #30 tab 08/29/19 09/12/19 promethazine 25 mg PO TID PRN #10 tab 08/29/19 09/12/19 Previous Rx's Medication Instructions Recorded lisdexamfetamine 20 mg capsule 20 mg PO DAILY #30 cap MDD 1 cap 08/18/19 lisdexamfetamine 70 mg capsule 70 mg PO DAILY #30 cap MDD 1 cap 08/18/19 ondansetron 4 mg PO Q8H PRN #30 tab 08/29/19 promethazine 25 mg PO TID PRN #10 tab 08/29/19 Allergies Allergy/AdvReac Type Severity Reaction Status Date / Time docusate [From Senna-S] AdvReac Severe GI UPSET Verified 08/29/19 21:11 senna [From Senna-S] AdvReac Severe GI UPSET Verified 08/29/19 21:11 General Stated Complaint: Abd Prob DAYRON: 3 Review of Systems Narrative: As documented in HPI otherwise negative as below. 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) Mood disorder Tobacco use disorder Surgical History Colonoscopy - [facility] (08/19/17) EGD - [facility] (08/19/17) Social History Smoking/Tobacco Use Status: Current every day Tobacco Type: cigarettes Quit status: not considering quitting Second Hand Exposure: Yes Alcohol Intake: current Alcohol Intake frequency: a few times a month Alcohol type: beer Drug use: Occasionally Substance use type: marijuana Details: was a former substance user Caregiver/Support person: No Household members: other Details: Gram/mom Pets and animals: Yes Pets and animals: cat(s) and dog(s) Sexually active: Yes Do you think of yourself as: straight/heterosexual Current gender identity: decline to answer What is your relationship status?: living with partner How often do you talk on the phone with friends or family?: decline to answer How often do you get together with friends or relatives?: decline to answer How often do you attend congregational or catholic services?: decline to answer Do you belong to any clubs or organized social groups?: decline to answer Panel score (0-1 are the most socially isolated patients): 1 What type of physical activity do you participate in: walking Duration: 15-30 minutes/day Frequency: 3-4 times per week Ofelia/Scientology: Unknown Special ofelia needs: No Do you feel safe at home: Yes Do you feel safe in your relationship?: Yes Exam Narrative Exam Narrative: Vitals: Afebrile. Mild tachycardia just over 100. Otherwise normal vitals and normal room air pulse oximetry. Const: Thin male in NAD. HEENT: NC/AT. Normal facial exam. Eyes: Normal conjunctiva and sclera. Neck: Supple. Trachea midline. Lungs: Normal respiratory effort. GI: Soft and nondistended. Mild diffuse tenderness throughout. No guarding or rebound. Neuro: A+O x 3. Normal speech, mentation, gait. Cranial nerves II - XII grossly intact. No gross motor or sensory deficit. Ext: No C/C/E. Skin: Warm and dry without rash. Course Vital Signs Vital signs: Vital Signs Temperature 98.2 F 09/16/19 05:42 Pulse 101 H 09/16/19 05:42 Respiratory Rate 18 09/16/19 05:42 Blood Pressure 122/67 09/16/19 05:42 Pulse Oximetry 98 09/16/19 05:42 Temperature 98.2 F 09/16/19 05:42 Temperature Source Temporal Artery Scan 09/16/19 05:42 Pulse 101 H 09/16/19 05:42 Respiratory Rate 18 09/16/19 05:42 Respiratory Effort 09/16/19 05:45 Blood Pressure 122/67 09/16/19 05:42 Blood Pressure Position Sitting 09/16/19 05:42 Pulse Oximetry 98 09/16/19 05:42 Oxygen Delivery Method Room Air 09/16/19 05:42 Oxygen Flow Rate 0 09/16/19 05:42 Pain Level 10 09/16/19 05:42
[2019-09-16] MEDS: Lactated Ringers 1,000 ML 1000 ML IV (05:57)
[2019-09-16 06:25] VITALS: BP 101/58; PULSE 56; RESP 16; O2SAT 100
== END 2019-09-16 06:30 | disposition home or self-care (01) ==
PROVIDERS: Emergency Provider Emergency Medicine; PCP Family Medicine
DX: R11.15 Cyclical vomiting syndrome unrelated to migraine (principal); R19.7 Diarrhea, unspecified
CPT/HCPCS: 96365; 99284

== ENCOUNTER 2019-10-01 04:58 | Emergency (ER) | payer MEDICAID, SELFPAY ==
[2019-10-01 05:06] VITALS: BP 109/68; PULSE 72; RESP 16; TEMP 36.8; O2SAT 96
--- NOTE | 2019-10-01 05:15 | ED.GENADUL_ITS ---
Discharge Plan Disposition Patient Disposition: HOME Condition: Improving Discharge Details Chief Complaint: Nausea/Vomit/Diar Clinical Impression: Cyclic vomiting syndrome Primary Care Provider: Delfino Huang ED Provider: Edouard Majano Home Meds and New Rx's Prescriptions: Continued methadone 40 mg tablet,soluble 80 mg PO DAILY RF: 0 Vyvanse 70 mg capsule 70 mg PO DAILY MDD 1 cap Qty: 30 RF: 0 Vyvanse 20 mg capsule 20 mg PO DAILY MDD 1 cap Qty: 30 RF: 0 polyethylene glycol 3350 [Miralax] 17 gram Powder In Packet 1 g PRN PRNRF: 0 ondansetron 4 mg tablet,disintegrating 4 mg PO Q8H PRN (Reason: nausea and vomiting) Qty: 30 RF: 0 promethazine 25 mg tablet 25 mg PO TID PRN (Reason: nausea and vomiting) Qty: 10 RF: 0 Discharge Instructions Additional Instructions: Home to rest today. Small, frequent sips of fluids so that you maintain hydration. May use ondansetron/Zofran sparingly as needed for persistent nausea. Continue your regular medications. Return to the emergency department if you develop a fever, persistent vomiting, or any other acute concerns Medical Decision Making 23-year-old male with a history of cyclic vomiting syndrome. States he had recurrent nausea and emesis at home which she believes may have been brought on by eating red meat. He arrives to the ER with normal vital signs, afebrile, actively vomiting. Throat diagnosis would include pancreatitis, gastritis, cyclic vomiting syndrome warm abdominal migraine. Patient IV access established, given antiemetic and fluids. Laboratories were obtained and unremarkable. Following medications and fluids, patient had a brief nap, awoke and stated he feels improved. He took p.o. challenge without difficulty. He is on methadone maintenance therapy, has tolerated small amounts of Zofran in the past, will offer small amount for home today. He is stable and appropriate for discharge to home at this time. Lab Data Lab results reviewed: Yes I reviewed the patient's lab results. Labs: Laboratory Results - last 24 hr 10/01/19 10/01/19 05:16 05:16 WBC 7.55 RBC 4.53 Hgb 15.0 Hct 43.3 MCV 95.6 H MCH 33.1 H MCHC 34.6 RDW 12.4 Plt Count 282 MPV 10.5 Immature Gran % 0.1 Neutrophils % 49.4 Lymphocytes % 38.3 Monocytes % 8.9 Eosinophils % 2.9 Basophils % 0.4 Absolute Neutrophils 3.73 Absolute Lymphocytes 2.89 Absolute Monocytes 0.67 Absolute Eosinophils 0.22 Absolute Basophils 0.03 Sodium 140 Potassium 4.2 Chloride 103 Carbon Dioxide 29.3 Anion Gap 7.7 BUN 16 Creatinine 1.03 Estimated GFR/1.73 m2 >= 60.00 Glucose 91 Calcium 9.1 Magnesium 1.9 Total Bilirubin 0.3 AST 23 ALT 38 Alkaline Phosphatase 71 Total Protein 7.1 Albumin 4.1 HPI General Mode of arrival: ambulatory . Date/Time Provider Initiated Documentation: 10/01/19 05:10 . Limitations to Documentation: no limitations . Information obtained by: patient . History of Present Illness 23 year old M presents to the emergency department with the chief complaint of Recurrent vomiting at home, similar to previous, no clear inciting event, described as similar to prior episodes, Quality is described as dull and other (Pressure), and is localized to the abdomen. Patient reports no radiation. Patient started experiencing this hour(s) and it has been constant. No relieving factors improve symptom(s), No exacerbating factors reported . Patient notes denies fever/chills and headaches. Patient did receive the following treatments prior to arrival, none Related Data Home Medications Medication Instructions Recorded Confirmed polyethylene glycol 3350 [Miralax] 1 g PRN PRN 03/31/19 10/01/19 methadone 40 mg soluble tablet 80 mg PO DAILY tab 04/02/19 10/01/19 ondansetron 4 mg PO Q8H PRN #30 tab 08/29/19 10/01/19 promethazine 25 mg PO TID PRN #10 tab 08/29/19 10/01/19 lisdexamfetamine 20 mg capsule 20 mg PO DAILY #30 cap MDD 1 cap 09/20/19 10/01/19 lisdexamfetamine 70 mg capsule 70 mg PO DAILY #30 cap MDD 1 cap 09/20/19 10/01/19 Previous Rx's Medication Instructions Recorded ondansetron 4 mg PO Q8H PRN #30 tab 08/29/19 promethazine 25 mg PO TID PRN #10 tab 08/29/19 lisdexamfetamine 20 mg capsule 20 mg PO DAILY #30 cap MDD 1 cap 09/20/19 lisdexamfetamine 70 mg capsule 70 mg PO DAILY #30 cap MDD 1 cap 09/20/19 Allergies Allergy/AdvReac Type Severity Reaction Status Date / Time docusate [From Senna-S] AdvReac Severe GI UPSET Verified 08/29/19 21:11 senna [From Senna-S] AdvReac Severe GI UPSET Verified 08/29/19 21:11 General Stated Complaint: Nausea/Vomit/Diar DAYRON: 3 Review of Systems Narrative: No fever, denies alcohol abuse. States sometimes his vomiting is brought on by eating red meat. 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 Maternal Grandmother Depression COPD (chronic obstructive pulmonary disease) Sister Asthma Brother No problems noted. Paternal Grandfather Depression Paternal Grandmother No problems noted. Social History Smoking/Tobacco Use Status: Current every day Tobacco Type: cigarettes Quit status: not considering quitting Second Hand Exposure: Yes Alcohol Intake: current Alcohol Intake frequency: a few times a month Alcohol type: beer Drug use: Occasionally Substance use type: marijuana Details: was a former substance user Caregiver/Support person: No Household members: other Details: Gram/mom Pets and animals: Yes Pets and animals: cat(s) and dog(s) Sexually active: Yes Do you think of yourself as: straight/heterosexual Current gender identity: decline to answer What is your relationship status?: living with partner How often do you talk on the phone with friends or family?: decline to answer How often do you get together with friends or relatives?: decline to answer How often do you attend protestant or baptist services?: decline to answer Do you belong to any clubs or organized social groups?: decline to answer Panel score (0-1 are the most socially isolated patients): 1 What type of physical activity do you participate in: walking Duration: 15-30 minutes/day Frequency: 3-4 times per week Ofelia/Latter Day: Unknown Special ofelia needs: No Do you feel safe at home: Yes Do you feel safe in your relationship?: Yes Exam Narrative Exam Narrative: GEN: awake, alert, oriented 3. Pleasant, well groomed, interactive. HEAD: Normocephalic, atraumatic ENT: Mucous membranes moist, oropharynx unremarkable, External ear exam unremarkable EYES: PERRL, EOMI NECK: Full ROM, no PANTERA, no menigismus CHEST/RESP: Nontender, clear to auscultation bilateral, no wheeze/rhonchi/rales CARDIOVASCULAR: RRR, no murmur, rub eric. 2+ Rad pulse bilateral ABDOMEN: Soft, nontender, no mass. +Bowel sounds EXT: Full ROM, no edema, no rash Neuro: Grossly normal neurologic exam, conversant, interactive. Psych: Speech fluent, thoughts congruent, affect anxious Course Vital Signs Vital signs: Vital Signs Temperature 36.8 C 10/01/19 05:06 Pulse 72 10/01/19 05:06 Respiratory Rate 16 10/01/19 05:06 Blood Pressure 109/68 10/01/19 05:06 Pulse Oximetry 96 10/01/19 05:06 Temperature 36.8 C 10/01/19 05:06 Temperature Source Oral 10/01/19 05:06 Pulse 72 10/01/19 05:06 Respiratory Rate 16 10/01/19 05:06 Respiratory Effort 10/01/19 05:01 Blood Pressure 109/68 10/01/19 05:06 Pulse Oximetry 96 10/01/19 05:06 Oxygen Delivery Method Room Air 10/01/19 05:06 Oxygen Flow Rate 0 10/01/19 05:06
[2019-10-01 05:24] LABS: Abs Immature Grans 0.01 k/cumm (0.0-0.09); Absolute Basophil Count 0.03 k/cumm (0.0-0.2); Absolute Eosinophil Count 0.22 k/cumm (0.0-0.7); Absolute Lymphocyte Count 2.89 k/cumm (1.2-3.4); Absolute Monocyte Count 0.67 k/cumm (0.11-0.7); Absolute Neutrophil Count 3.73 k/cumm (1.2-6.7); Basophils % 0.4; Eosinophils % 2.9; HCT 43.3 % (40.0-50.0); Immature Grans % 0.1 %; Lymphocytes % 38.3; Mean Corp. HGB Concentration 34.6 g/dL (32.0-36.0); Mean Corpuscular Hemoglobin 33.1 pg (27.0-33.0); Mean Corpuscular Volume 95.6 fL (80-95); Mean Platelet Volume 10.5 fL (8.0-11.0); Monocytes % 8.9; Neutrophils % 49.4; Platelet Count 282 x1000/uL (130-400); RBC 4.53 m/cumm (4.50-6.00); RBC Distribution Width 12.4 % (11.8-14.1); White Blood Cell Count 7.55 k/cumm (4.4-10.8)
[2019-10-01] MEDS: Normal Saline 1,000 ML 1000 ML IV (05:24)
[2019-10-01] MEDS: Ondansetron 4 MG/2 ML VIAL IVP (05:25)
[2019-10-01 05:38] LABS: ALT 38 U/L (16-63); AST 23 U/L (15-37); Albumin 4.1 g/dL (3.4-5.0); Alkaline Phosphatase 71 U/L (46-116); Anion Gap 7.7 mmol/L (3-11); BUN 16 mg/dL (7-18); Bilirubin, Total 0.3 mg/dL (0.2-1.0); CO2 29.3 mmol/L (21.0-32.0); CREATININE 1.03 mg/dL (0.70-1.30); Calcium 9.1 mg/dL (8.5-10.1); Chloride 103 mmol/L (98-107); Glucose 91 mg/dL (74-106); Magnesium 1.9 mg/dL (1.8-2.4); Potassium 4.2 mmol/L (3.5-5.1); Sodium 140 mmol/L (136-145); Total Protein 7.1 g/dL (6.4-8.2)
[2019-10-01 06:12] VITALS: BP 109/68; PULSE 50; RESP 16; O2SAT 99
[2019-10-01 06:21] VITALS: BP 92/62; PULSE 50; RESP 16; O2SAT 100
[2019-10-01] MEDS: Ondansetron O.D.T. 4 MG TABEF, 3 TABS/BTL PO (06:23)
== END 2019-10-01 06:24 | disposition home or self-care (01) ==
PROVIDERS: Emergency Provider Emergency Medicine; PCP Family Medicine
DX: R11.15 Cyclical vomiting syndrome unrelated to migraine (principal)
CPT/HCPCS: 36415; 80053; 96361; 96365; 96375; 99284; 83735; 85025; 99283; J2405

== ENCOUNTER 2019-10-19 07:13 | Emergency (ER) | payer MEDICAID, SELFPAY ==
[2019-10-19 07:18] VITALS: BP 114/84; PULSE 86; RESP 17; TEMP 37; O2SAT 97
--- NOTE | 2019-10-19 07:25 | W.ED.GENAD ---
Discharge Plan Disposition Patient Disposition: HOME Condition: Improving Discharge Details Chief Complaint: Laceration Clinical Impression: Laceration of left thumb Primary Care Provider: Delfino Huang ED Provider: Edouard Majano Home Meds and New Rx's Prescriptions: Continued methadone 40 mg tablet,soluble 80 mg PO DAILY RF: 0 Vyvanse 70 mg capsule 70 mg PO DAILY MDD 1 cap Qty: 30 RF: 0 Vyvanse 20 mg capsule 20 mg PO DAILY MDD 1 cap Qty: 30 RF: 0 Discharge Instructions Instructions: Laceration (ED) Additional Instructions: Leave dressing in place for 48 to 72 hours then may remove bulky dressing and replace with Band-Aid. Tissue adhesive and Steri-Strips will wear off in approximately 7 days time. Return if develop a fever, foul-smelling discharge from the wound, or any other acute concerns. Medical Decision Making 23-year-old male presents with left thumb laceration that does not penetrate through the full depth of the dermis. Wound edges are well approximated. The wound is irrigated, cleansed. Repaired with tissue adhesive and Steri-Strips as no indication for suture repair. Patient understands homecare as well as return precautions. HPI General Mode of arrival: ambulatory. Date/Time Provider Initiated Documentation: 10/19/19 07:14. Limitations to Documentation: no limitations. Information obtained by: patient. History of Present Illness 23 year old M presents to the emergency department with the chief complaint of Left thumb laceration on bandsaw this morning, motor and sensory intact, Quality is described as dull and constant, and is localized to the left and upper extremity. Patient reports no radiation. Patient started experiencing this minute(s) and it has been constant. No relieving factors improve symptom(s), No exacerbating factors reported . Patient did receive the following treatments prior to arrival, other (Tetanus up-to-date) Related Data Home Medications Medication Instructions Recorded Confirmed methadone 40 mg soluble tablet 80 mg PO DAILY tab 04/02/19 10/01/19 lisdexamfetamine 20 mg capsule 20 mg PO DAILY #30 cap MDD 1 cap 10/18/19 10/19/19 lisdexamfetamine 70 mg capsule 70 mg PO DAILY #30 cap MDD 1 cap 10/18/19 10/19/19 Previous Rx's Medication Instructions Recorded lisdexamfetamine 20 mg capsule 20 mg PO DAILY #30 cap MDD 1 cap 10/18/19 lisdexamfetamine 70 mg capsule 70 mg PO DAILY #30 cap MDD 1 cap 10/18/19 Allergies Allergy/AdvReac Type Severity Reaction Status Date / Time docusate [From Senna-S] AdvReac Severe GI UPSET Verified 10/19/19 07:22 senna [From Senna-S] AdvReac Severe GI UPSET Verified 10/19/19 07:22 General Stated Complaint: Laceration DAYRON: 4 Review of Systems Narrative: Bleeding controlled. Tetanus up-to-date, no other injury. 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) Mood disorder Tobacco use disorder Social History Smoking/Tobacco Use Status: Current every day Tobacco Type: cigarettes Quit status: not considering quitting Second Hand Exposure: Yes Alcohol Intake: current Alcohol Intake frequency: a few times a month Alcohol type: beer Drug use: Occasionally Substance use type: marijuana Details: was a former substance user Caregiver/Support person: No Household members: other Details: Gram/mom Pets and animals: Yes Pets and animals: cat(s) and dog(s) Sexually active: Yes Do you think of yourself as: straight/heterosexual Current gender identity: decline to answer What is your relationship status?: living with partner How often do you talk on the phone with friends or family?: decline to answer How often do you get together with friends or relatives?: decline to answer How often do you attend advent or congregation services?: decline to answer Do you belong to any clubs or organized social groups?: decline to answer Panel score (0-1 are the most socially isolated patients): 1 What type of physical activity do you participate in: walking Duration: 15-30 minutes/day Frequency: 3-4 times per week Ofelia/Adventism: Unknown Special ofelia needs: No Do you feel safe at home: Yes Do you feel safe in your relationship?: Yes Exam Narrative Exam Narrative: GEN: awake, alert, oriented 3. Pleasant, well groomed, interactive. HEAD: Normocephalic, atraumatic NECK: Full ROM, no PANTERA, no menigismus CHEST/RESP: No respiratory distress EXT: Full ROM, no edema, no rash. Left thumb as a 1.5 cm laceration that does not penetrate through the full depth the dermis. It is located over the distal phalanx on the ulnar aspect. No violation of the nailbed. Capillary fill less than 2 seconds, normal motor and normal sensation Neuro: Grossly normal neurologic exam, conversant, interactive. Psych: Speech fluent, thoughts congruent, affect normal Course Vital Signs Vital signs: Vital Signs Temperature 37.0 C 10/19/19 07:18 Pulse 86 10/19/19 07:18 Respiratory Rate 17 10/19/19 07:18 Blood Pressure 114/84 10/19/19 07:18 Pulse Oximetry 97 10/19/19 07:18 Temperature 37.0 C 10/19/19 07:18 Temperature Source Tympanic 10/19/19 07:18 Pulse 86 10/19/19 07:18 Respiratory Rate 17 10/19/19 07:18 Respiratory Effort 10/19/19 07:20 Blood Pressure 114/84 10/19/19 07:18 Blood Pressure Position Sitting 10/19/19 07:18 Pulse Oximetry 97 10/19/19 07:18 Oxygen Delivery Method Room Air 10/19/19 07:18 Oxygen Flow Rate 0 10/19/19 07:18 Pain Level 8 10/19/19 07:18 Procedures Laceration Laceration 1: Site: hand Side (If applicable): left Size (cm): 1.5 Description: linear Pre-repair: irrigated extensively Skin layer closed with: other (Tissue adhesive)
== END 2019-10-19 07:45 | disposition home or self-care (01) ==
PROVIDERS: Emergency Provider Emergency Medicine; PCP Family Medicine
DX: S61.012A Laceration without foreign body of left thumb without damage to nail, initial encounter (principal); W31.2XXA Contact with powered woodworking and forming machines, initial encounter
CPT/HCPCS: 12001

== ENCOUNTER 2019-10-26 09:43 | Emergency (ER) | payer MEDICAID, SELFPAY ==
[2019-10-26 09:49] VITALS: BP 118/77; PULSE 55; RESP 16; TEMP 36.6; O2SAT 99
--- NOTE | 2019-10-26 09:53 | W.ED.GENAD ---
Discharge Plan Disposition Patient Disposition: HOME Condition: Stable Discharge Details Chief Complaint: Nausea/Vomit/Diar Clinical Impression: Nausea vomiting and diarrhea Primary Care Provider: Delfino Huang ED Provider: Tammy Ocasio Home Meds and New Rx's Prescriptions: New promethazine 6.25 mg/5 mL syrup 12.5 mg PO Q6H PRN (Reason: nausea and vomiting) Qty: 473 RF: 0 No Action methadone 40 mg tablet,soluble 80 mg PO DAILY RF: 0 Discharge Instructions Instructions: Acute Nausea and Vomiting (ED) Additional Instructions: Follow up with primary care provider in 3-5 days. Return to ED sooner if any worsening or concerns. Increase oral fluids. Take medications as directed. Referrals: Delfino Huang. [Primary Care Provider] - Medical Decision Making 23-year-old male presents to the ED with a chief complaint of nausea vomiting diarrhea. This began approximately 1 hour prior to arrival. He does have a history of cyclic vomiting syndrome and is scheduled for an EGD by Dr.Lamphere Story in [place]. Patient states his emesis is consistent with green bile. He has some upper midepigastric abdominal pain which he describes as tightness. He describes episode as moderate to severe. He states he is out of Phenergan liquid which he normally has at home for his nausea vomiting. He does occasionally use marijuana. Patient symptoms are consistent with his cyclic vomiting syndrome, capsaicin ointment ordered, 1 L normal saline, and Phenergan 25 mg IV piggyback. Patient refused capsaicin topical ointment because it haley too much. Labs ordered including CBC, CMP and magnesium. 1035: Patient reevaluation states he feels much better after the fluids and Phenergan. Awaiting his labs and most likely disposition will be discharged. CBC and CMP are largely within normal limits. Plan is to discharge home with Phenergan. HPI General Mode of arrival: ambulatory. Date/Time Provider Initiated Documentation: 10/26/19 09:44. Limitations to Documentation: no limitations. Information obtained by: patient. HPI Narrative: 23-year-old male presents to the ED with a chief complaint of nausea vomiting diarrhea. This began approximately 1 hour prior to arrival. He does have a history of cyclic vomiting syndrome and is scheduled for an EGD by Dr.Lamphere Story in [place]. Patient states his emesis is consistent with green bile. He has some upper midepigastric abdominal pain which he describes as tightness. He describes episode as moderate to severe. He states he is out of Phenergan liquid which he normally has at home for his nausea vomiting. He does occasionally use marijuana. Related Data Home Medications Medication Instructions Recorded Confirmed methadone 40 mg soluble tablet 80 mg PO DAILY tab 04/02/19 10/26/19 promethazine 12.5 mg PO Q6H PRN #473 ml 10/26/19 Previous Rx's Medication Instructions Recorded promethazine 12.5 mg PO Q6H PRN #473 ml 10/26/19 Allergies Allergy/AdvReac Type Severity Reaction Status Date / Time docusate [From Senna-S] AdvReac Severe GI UPSET Verified 10/19/19 07:22 senna [From Senna-S] AdvReac Severe GI UPSET Verified 10/19/19 07:22 General Stated Complaint: Nausea/Vomit/Diar DAYRON: 3 Review of Systems Narrative: Constitutional: Negative for weight loss, alert and oriented, well groomed, thin body habitus, appears uncomfortable. HEENT: Denies trauma, headaches, blurry vision, nasal discharge, sore throat, trouble swallowing. Chest: Denies chest pain, palpitations, irregular rhythm, hypertension. Respiratory: Denies Shortness of breath, cough, hemoptysis. GI: Denies constipation. Positive midepigastric abdominal pain, positive nausea vomiting diarrhea. : Denies dysuria, hematuria, flank pain, rectal bleeding. Neuro: Denies dizziness, blurry vision, weakness, syncope, headache or facial numbness. Hematologic: Denies easy bruising, intolerance to heat or cold, hair loss. 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 Maternal Grandmother Depression COPD (chronic obstructive pulmonary disease) Sister Asthma Brother No problems noted. Paternal Grandfather Depression Paternal Grandmother No problems noted. Social History Smoking/Tobacco Use Status: Current every day Tobacco Type: cigarettes Quit status: not considering quitting Second Hand Exposure: Yes Alcohol Intake: current Alcohol Intake frequency: a few times a month Alcohol type: beer Drug use: Occasionally Substance use type: marijuana Details: was a former substance user Caregiver/Support person: No Household members: other Details: Gram/mom Pets and animals: Yes Pets and animals: cat(s) and dog(s) Sexually active: Yes Do you think of yourself as: straight/heterosexual Current gender identity: decline to answer What is your relationship status?: living with partner How often do you talk on the phone with friends or family?: decline to answer How often do you get together with friends or relatives?: decline to answer How often do you attend latter day or confucianist services?: decline to answer Do you belong to any clubs or organized social groups?: decline to answer Panel score (0-1 are the most socially isolated patients): 1 What type of physical activity do you participate in: walking Duration: 15-30 minutes/day Frequency: 3-4 times per week Ofelia/Scientology: Unknown Special ofelia needs: No Do you feel safe at home: Yes Do you feel safe in your relationship?: Yes Exam Narrative Exam Narrative: Constitutional: Alert and oriented x3. Appears stated age. Thin body habitus. Is actively retching and appears very uncomfortable. Head: Normocephalic, no trauma. Eyes: Pupils PERRLA, Red reflex noted, EOM's intact. Eyelids symmetrical without lesions, discharge, or swelling. ENT: Bilateral TM's WNL, External ear normal to inspection, no mastoid TTP, swelling, or erythema, Nasal turbinates WNL, no nasal discharge. Normal dentition, Posterior pharynx WNL, no exudate. Chest: RRR, Normal S1, S2, distal pulses intact. Resp: Lungs clear to auscultation bilaterally, no wheezes, rales, or rhonchi. Abdomen: Nondistended, rigid abdomen, tender to palpation in the midepigastrium, Musculoskeletal: Normal gait, 5/5 strength to all four extremities. Skin: No suspicious rashes or lesions. Capillary refill less than 2 sec. Neurologic: Cranial nerves II-XII intact. Alert and oriented x 3. DTR's intact. Hematologic/Lymphatic: No ecchymosis, no lymphadenopathy. Course Vital Signs Vital signs: Vital Signs Temperature 36.6 C 10/26/19 09:49 Pulse 55 L 10/26/19 09:49 Respiratory Rate 16 10/26/19 09:49 Blood Pressure 118/77 10/26/19 09:49 Pulse Oximetry 99 10/26/19 09:49 Temperature 36.6 C 10/26/19 09:49 Temperature Source Tympanic 10/26/19 09:49 Pulse 55 L 10/26/19 09:49 Respiratory Rate 16 10/26/19 09:49 Respiratory Effort Non-Labored 10/26/19 09:50 Blood Pressure 118/77 10/26/19 09:49 Blood Pressure Position Sitting 10/26/19 09:49 Pulse Oximetry 99 10/26/19 09:49 Oxygen Delivery Method Room Air 10/26/19 09:49 Oxygen Flow Rate 0 10/26/19 09:49 Pain Level 7 10/26/19 09:49
[2019-10-26] MEDS: Normal Saline 1,000 ML 1000 ML IV (10:06)
[2019-10-26 10:30] LABS: Abs Immature Grans 0.01 k/cumm (0.0-0.09); Absolute Basophil Count 0.04 k/cumm (0.0-0.2); Absolute Eosinophil Count 0.21 k/cumm (0.0-0.7); Absolute Monocyte Count 0.37 k/cumm (0.11-0.7); Absolute Neutrophil Count 3.56 k/cumm (1.2-6.7); Basophils % 0.6; Eosinophils % 3.2; HCT 45.8 % (40.0-50.0); HGB 15.5 g/dL (13.5-17.5); Immature Grans % 0.2 %; Lymphocytes % 35.4; Mean Corp. HGB Concentration 33.8 g/dL (32.0-36.0); Mean Corpuscular Hemoglobin 32.8 pg (27.0-33.0); Mean Corpuscular Volume 96.8 fL (80-95); Mean Platelet Volume 10.6 fL (8.0-11.0); Monocytes % 5.7; Neutrophils % 54.9; Platelet Count 269 x1000/uL (130-400); RBC 4.73 m/cumm (4.50-6.00); RBC Distribution Width 12.6 % (11.8-14.1); White Blood Cell Count 6.49 k/cumm (4.4-10.8)
[2019-10-26 10:40] LABS: ALT 33 U/L (16-63); AST 24 U/L (15-37); Albumin 4.1 g/dL (3.4-5.0); Alkaline Phosphatase 74 U/L (46-116); Anion Gap 7.4 mmol/L (3-11); BUN 12 mg/dL (7-18); Bilirubin, Total 0.4 mg/dL (0.2-1.0); CO2 29.6 mmol/L (21.0-32.0); CREATININE 0.94 mg/dL (0.70-1.30); Calcium 9.2 mg/dL (8.5-10.1); Chloride 102 mmol/L (98-107); Glucose 97 mg/dL (74-106); Magnesium 2.2 mg/dL (1.8-2.4); Potassium 3.9 mmol/L (3.5-5.1); Sodium 139 mmol/L (136-145); Total Protein 7.3 g/dL (6.4-8.2)
[2019-10-26 11:02] VITALS: BP 88/52; PULSE 54; RESP 18; TEMP 37; O2SAT 97
== END 2019-10-26 11:10 | disposition home or self-care (01) ==
PROVIDERS: Emergency Provider Registered Nurse Emergency; PCP Family Medicine
DX: R11.2 Nausea with vomiting, unspecified (principal); R10.13 Epigastric pain; R11.15 Cyclical vomiting syndrome unrelated to migraine
CPT/HCPCS: 36415; 80053; 96361; 96365; 99284; 81003; 83735; 85025

== ENCOUNTER 2019-11-04 04:07 | Emergency (ER) | payer MEDICAID, SELFPAY ==
[2019-11-04] VITALS (8 sets, daily range): BP systolic 99–121; BP diastolic 58–86; PULSE 57–100; RESP 18; TEMP 36.7; O2SAT 95–100
--- NOTE | 2019-11-04 04:12 | ED.GENADUL_ITS ---
Discharge Plan Disposition Patient Disposition: HOME Condition: Good Discharge Details Chief Complaint: Nausea/Vomit/Diar Clinical Impression: Cyclic vomiting syndrome Primary Care Provider: Delfino Huang ED Provider: Feliciano Garland Home Meds and New Rx's Prescriptions: Continued methadone 40 mg tablet,soluble 80 mg PO DAILY RF: 0 promethazine 6.25 mg/5 mL syrup 12.5 mg PO Q6H PRN (Reason: nausea and vomiting) Qty: 473 RF: 0 Discharge Instructions Additional Instructions: Follow-up with primary care and GI as needed. Clear liquid/bland diet today. Phenergan as needed. Return to ED if problems. Referrals: Delfino Huang. [Primary Care Provider] - Medical Decision Making IV established and a liter of LR ordered. 25 mg IV Phenergan ordered. No labs. Typically resolves once fluids and Phenergan is in. 5 AM?patient much better. Vomiting resolved. Feels back to baseline. Reports that he was actually already scoped but is waiting for results. Does have Phenergan at home. Is good for discharge. HPI General Mode of arrival: ambulatory . Date/Time Provider Initiated Documentation: 11/04/19 04:11 . Limitations to Documentation: no limitations . Information obtained by: patient . HPI Narrative: Patient presents to ED with nausea, vomiting and upper abdominal pain. Patient well-known to me and is been seen and managed by me multiple times for same. He went to bed feeling fine. Woke up about an hour to an hour and a half ago and is not able to stop vomiting since. Is being followed by GI at [facility]. Has not yet had upper and lower endoscopy but that is in the plan. Patient has been well otherwise. Presentation this morning no different from previous. Related Data Home Medications Medication Instructions Recorded Confirmed methadone 40 mg soluble tablet 80 mg PO DAILY tab 04/02/19 11/04/19 promethazine 12.5 mg PO Q6H PRN #473 ml 10/26/19 11/04/19 Previous Rx's Medication Instructions Recorded promethazine 12.5 mg PO Q6H PRN #473 ml 10/26/19 Allergies Allergy/AdvReac Type Severity Reaction Status Date / Time docusate [From Senna-S] AdvReac Severe GI UPSET Verified 11/04/19 04:13 senna [From Senna-S] AdvReac Severe GI UPSET Verified 11/04/19 04:13 General DAYRON: 3 Review of Systems Narrative: As documented in HPI otherwise negative as below. 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) Mood disorder Tobacco use disorder Surgical History Colonoscopy - MAC (08/19/17) EGD - MAC (08/19/17) Social History Smoking/Tobacco Use Status: Current every day Tobacco Type: cigarettes Quit status: not considering quitting Second Hand Exposure: Yes Alcohol Intake: current Alcohol Intake frequency: a few times a month Alcohol type: beer Drug use: Current Sobriety Substance use type: marijuana Details: was a former substance user Caregiver/Support person: No Household members: other Details: Gram/mom Pets and animals: Yes Pets and animals: cat(s) and dog(s) Sexually active: Yes Do you think of yourself as: straight/heterosexual Current gender identity: decline to answer What is your relationship status?: living with partner How often do you talk on the phone with friends or family?: decline to answer How often do you get together with friends or relatives?: decline to answer How often do you attend episcopal or alevism services?: decline to answer Do you belong to any clubs or organized social groups?: decline to answer Panel score (0-1 are the most socially isolated patients): 1 What type of physical activity do you participate in: walking Duration: 15-30 minutes/day Frequency: 3-4 times per week Ofelia/Episcopalian: Unknown Special ofelia needs: No Do you feel safe at home: Yes Do you feel safe in your relationship?: Yes Exam Narrative Exam Narrative: Vitals: Afebrile. Elevated heart rate to 100. Normal blood pressure. Normal room air saturation. Const: Thin young male with active vomiting. HEENT: NC/AT. Normal facial exam. Eyes: Normal conjunctiva and sclera. Neck: Supple. Trachea midline. Lungs: Normal respiratory effort. Cor: Good radial pulses. GI: Soft and nondistended. Mild upper abdominal discomfort with palpation. Neuro: A+O x 3. Normal speech, mentation, gait. Cranial nerves II - XII grossly intact. No gross motor or sensory deficit. Ext: No C/C/E. Skin: Warm and dry without rash.
[2019-11-04] MEDS: Lactated Ringers 1,000 ML 1000 ML IV (04:20)
== END 2019-11-04 05:51 | disposition home or self-care (01) ==
PROVIDERS: Emergency Provider Emergency Medicine; PCP Family Medicine
DX: R11.15 Cyclical vomiting syndrome unrelated to migraine (principal)
CPT/HCPCS: 96361; 96374; 99284; 99283

== ENCOUNTER 2019-12-14 21:25 | Outpatient (REF) | payer MEDICAID, SELFPAY ==
[2019-12-16 15:16] LABS: Chlamydia Result Negative (Negative); GC Result Negative (Negative)
== END 2019-12-14 21:45 ==
LOC: LBN 21:25
PROVIDERS: PCP Family Medicine; Visit Provider Family Medicine
DX: Z11.3 Encounter for screening for infections with a predominantly sexual mode of transmission (principal); Z20.2 Contact with and (suspected) exposure to infections with a predominantly sexual mode of transmission
CPT/HCPCS: 87491; 87591

== ENCOUNTER 2020-01-18 01:44 | Outpatient (CLI) | payer MEDICAID, SELFPAY ==
[2020-01-19 10:05] LABS: Hepatitis C Ab w Rflx HCV PCR Negative (Negative)
[2020-01-19 10:28] LABS: HIV-1/2 Ag & Ab Screen Negative (Negative)
[2020-01-19 10:58] LABS: Syphilis Serology (RPR) Negative (Negative)
== END 2020-01-18 02:04 ==
PROVIDERS: PCP Family Medicine; Visit Provider Family Medicine
DX: Z20.2 Contact with and (suspected) exposure to infections with a predominantly sexual mode of transmission (principal); Z11.59 Encounter for screening for other viral diseases
CPT/HCPCS: 36415; 86803; 87389; 86592

== ENCOUNTER 2020-07-19 20:18 | Emergency (ER) | payer MEDICAID, SELFPAY ==
[2020-07-19 20:22] VITALS: BP 128/72; PULSE 83; RESP 16; TEMP 36.6; O2SAT 99
--- NOTE | 2020-07-19 20:26 | ED.GENADUL_ITS ---
Discharge Plan Disposition Patient Disposition: HOME Condition: Good Discharge Details Clinical Impression: Abrasion, corneal Primary Care Provider: Delfino Huang ED Provider: Kaci Paul Home Meds and New Rx's Prescriptions: Continued polyethylene glycol 3350 [Miralax] 17 gram/dose powder 17 gm PO DAILY RF: 0 methadone 40 mg tablet,soluble 80 mg PO DAILY RF: 0 promethazine 6.25 mg/5 mL syrup 12.5 mg PO Q6H PRN (Reason: nausea and vomiting) Qty: 473 RF: 1 Vyvanse 70 mg capsule 70 mg PO DAILY MDD 1 tab Qty: 28 RF: 0 Vyvanse 20 mg capsule 20 mg PO DAILY MDD 1 cap Qty: 28 RF: 0 Discharge Instructions Instructions: Erythromycin (Into the eye), Corneal Abrasion (ED) Additional Instructions: You have a small area of erythromycin abrasion. Please apply erythromycin ointment as directed by nursing staff 4 times daily. Primary concern is for potential infection although you do not appear to have an infection at this time. [facility] to schedule follow-up appointment. If you develop fever/chills, redness, discharge, increased pain or other new/worsening symptoms please seek care urgently once again. Referrals: [facility] [Outside] Delfino Huang [Primary Care Provider] - Medical Decision Making Patient is a 24-year-old male presenting today for evaluation of his left eye. He reports a prior to arrival he was sanding metal. He states that he had a large amount of metal debris on his hand. He reports he wiped his left eye with his hand and since then has been having a foreign body sensation. Last tetanus was in 2019. No visual changes. He does not wear contacts or corrective lenses. On exam, patient appears nontoxic. Visual acuity with minimal difference between the 2 eyes. He has no appreciable foreign body. Eyelids were everted. No foreign body identified. On slit-lamp exam, which appreciated a very small corneal abrasion at the 3 o'clock position. I do not appreciate any retained foreign body. Patient I discussed the concerns associated with corneal abrasion. Patient will discharge erythromycin ointment here and DC'd home with the tube. He will contact [facility] tomorrow to schedule follow- up appointment. Return precautions were discussed. All of his questions and concerns were addressed and he is in agreement this plan. HPI General Mode of arrival: ambulatory . Date/Time Provider Initiated Documentation: 07/19/20 20:26 . Limitations to Documentation: no limitations . Information obtained by: patient and RN notes reviewed . History of Present Illness 24 year old M presents to the emergency department with the chief complaint of FB sensation left eye, described as moderate, with intensity rated at 4. Quality is described as other (FB sensation), and is localized to the eyes. Patient reports no radiation. Patient started experiencing this minute(s) and it has been constant. No relieving factors improve symptom(s), No exacerbating factors reported . Patient notes no other symptoms.. Patient did receive the following treatments prior to arrival, none Related Data Home Medications Medication Instructions Recorded Confirmed methadone 40 mg soluble tablet 80 mg PO DAILY tab 04/02/19 07/19/20 polyethylene glycol 3350 17 17 gm PO DAILY 12/14/19 07/19/20 gram/dose oral powder promethazine 6.25 mg/5 mL oral 12.5 mg PO Q6H PRN #473 ml 02/21/20 07/19/20 syrup lisdexamfetamine 20 mg capsule 20 mg PO DAILY #28 cap MDD 1 cap 06/22/20 07/19/20 lisdexamfetamine 70 mg capsule 70 mg PO DAILY #28 tab-cap MDD 1 06/22/20 07/19/20 tab Previous Rx's Medication Instructions Recorded promethazine 6.25 mg/5 mL oral 12.5 mg PO Q6H PRN #473 ml 02/21/20 syrup lisdexamfetamine 20 mg capsule 20 mg PO DAILY #28 cap MDD 1 cap 06/22/20 lisdexamfetamine 70 mg capsule 70 mg PO DAILY #28 tab-cap MDD 1 06/22/20 tab Allergies Allergy/AdvReac Type Severity Reaction Status Date / Time docusate [From Senna-S] AdvReac Severe GI UPSET Verified 06/23/20 15:44 senna [From Senna-S] AdvReac Severe GI UPSET Verified 06/23/20 15:44 General Stated Complaint: EyeProblem DAYRON: 4 Review of Systems Constitutional Constitutional: Reports as per HPI, Denies chills, Denies fatigue, Denies fever(s) and Denies headache(s) Eyes Eyes: Reports as per HPI ENT Ears, Nose, Mouth, and Throat: Denies headache(s) Cardiovascular Cardiovascular: Reports as per HPI, Denies chest pain and Denies lightheadedness Respiratory Respiratory: Denies cough Integumentary/Breasts Skin/Breast: Reports as per HPI, Denies rash, Denies skin pain and Denies skin swelling Neurologic Neurologic: Denies headache(s) and Denies radicular pain Endocrine Endocrine: Denies fatigue PFSH Medical History (Updated 07/19/20 @ 20:44 by CLINTON Bartlett) Attention deficit hyperactivity disorder, combined type Cannabis abuse Cyclic vomiting syndrome (~08/10/19) 08/10/19 [facility] Gastroesophageal reflux disease with esophagitis (10/10/16) Learning difficulty Methadone maintenance therapy patient (01/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 Maternal Grandmother Depression COPD (chronic obstructive pulmonary disease) Sister Asthma Brother No problems noted. Paternal Grandfather Depression Paternal Grandmother No problems noted. Social History Smoking/Tobacco Use Status: Current every day Tobacco Type: cigarettes Quit status: not considering quitting Second Hand Exposure: Yes Smoking risk assessment performed?: Yes Alcohol Intake: current Alcohol Intake frequency: a few times a month Alcohol type: beer Drug use: Current Sobriety Substance use type: marijuana Details: was a former substance user Caregiver/Support person: No Household members: other Details: Gram/mom Pets and animals: Yes Pets and animals: cat(s) and dog(s) Sexually active: Yes Do you think of yourself as: straight/heterosexual Current gender identity: decline to answer What is your relationship status?: living with partner How often do you talk on the phone with friends or family?: decline to answer How often do you get together with friends or relatives?: decline to answer How often do you attend scientology or hoahaoism services?: decline to answer Do you belong to any clubs or organized social groups?: decline to answer Panel score (0-1 are the most socially isolated patients): 1 What type of physical activity do you participate in: walking Duration: 15-30 minutes/day Frequency: 3-4 times per week Ofelia/Scientologist: Unknown Special ofelia needs: No Do you feel safe at home: Yes Do you feel safe in your relationship?: Yes Exam Const General: cooperative, healthy appearing, comfortable, no acute distress, well developed and well groomed Nutritional Appearance: average body habitus and well nourished Orientation: alert, awake and oriented x3 HENMT Head: normal to inspection, normocephalic and atraumatic Ears: hearing grossly normal bilaterally and external ears normal General nose exam: external nose normal and nares normal Face and sinus: normal facial exam and face symmetric Mouth: oral mucosae normal, lip normal and moist mucous membranes Eyes Visual Sahu: normal visual sahu by confrontation Alignment and Position: alignment normal and position normal Periorbital: periorbital findings normal Eyelids: eyelids normal (everted, no FB) Conjunctivae: conjunctival abnormality left conjunctival injection diffuse Cornea: corneas abnormal on the left fluorescein used and abrasion (small abrasion <3mm, no FB, at the 3 o'clock position) and fluorescein used Pupils: PERRL EOM: EOM intact bilaterally Resp Effort & Inspection: normal respiratory effort, able to speak in complete sentences and no respiratory distress Skin General skin exam: no rashes or lesions noted Neuro General: patient alert, patient awake and patient oriented x3 Cranial Nerves: CN's II-XI intact bilaterally Cognition: normal cognition Speech: speech normal Gait: normal gait Psych Appearance: grossly normal and well kempt Mental Status: mental status grossly normal Speech and Movement: speech and movement normal Course Vital Signs Vital signs: Vital Signs Temperature 36.6 C 07/19/20 20:22 Pulse 83 07/19/20 20:22 Respiratory Rate 16 07/19/20 20:22 Blood Pressure 128/72 07/19/20 20:22 Pulse Oximetry 99 07/19/20 20:22 Temperature 36.6 C 07/19/20 20:22 Temperature Source Skin 07/19/20 20:22 Pulse 83 07/19/20 20:22 Respiratory Rate 16 02/17/21 20:22 Blood Pressure 128/72 02/17/21 20:22 Blood Pressure Position Sitting 07/19/20 20:22 Pulse Oximetry 99 07/19/20 20:22 Oxygen Delivery Method Room Air 07/19/20 20:22 Oxygen Flow Rate 0 07/19/20 20:22 Pain Level 5 07/19/20 20:22
[2020-07-19] MEDS: Fluorescein STRIPS 100/BOX 1 MG (20:32)
[2020-07-19] MEDS: Tetracaine 0.5% 4 ML BTL (20:32)
[2020-07-19] MEDS: Balanced Salt Solution 15 ML BTL (20:32)
[2020-07-19] MEDS: Erythromycin Ophth Oint 3.5 GM TUBE OS (20:46)
== END 2020-07-19 20:52 | disposition home or self-care (01) ==
PROVIDERS: Emergency Provider Physician Assistant; PCP Family Medicine
DX: S05.02XA Injury of conjunctiva and corneal abrasion without foreign body, left eye, initial encounter (principal); X58.XXXA Exposure to other specified factors, initial encounter
CPT/HCPCS: 99284; 99283

== ENCOUNTER 2021-01-27 10:03 | Emergency (ER) | payer MEDICAID, SELFPAY ==
[2021-01-27 10:11] VITALS: BP 121/86; PULSE 62; RESP 20; TEMP 36.7; O2SAT 100
--- NOTE | 2021-01-27 10:30 | RT.EKG_ITS ---
APPROVED REPORT Exam: Resting ECG Reason for Exam: checking QT prior to medication Patient Location: E HR:47 bpm ECG Measurements Heart Rate 47 AXIS ND 212 P 70 QRSd 102 QRS 53 QT 451 T 50 QTc 397 Conclusion Slow sinus arrhythmia...V-rate 38- 56, mean< 60 Borderline prolonged ND interval...ND >212, V-rate 30- 49 ST elev, probable normal early repol pattern...ST elevation, age<55 Physician: no stemi, early repol
--- NOTE | 2021-01-27 10:31 | ED.GENADUL_ITS ---
Discharge Plan Disposition Patient Disposition: HOME Condition: Improving Discharge Details Clinical Impression: Recurrent vomiting, Diarrhea Primary Care Provider: Delfino Huang ED Provider: Kaci Paul Home Meds and New Rx's Prescriptions: New promethazine 25 mg suppository 25 mg WA Q6H PRN (Reason: nausea and vomiting) Qty: 12 RF: 0 Continued methadone 40 mg tablet,soluble 80 mg PO DAILY RF: 0 promethazine 6.25 mg/5 mL syrup 12.5 mg PO Q6H PRN (Reason: nausea and vomiting) Qty: 473 RF: 1 polyethylene glycol 3350 [Miralax] 17 gram/dose powder 17 g PO DAILY Qty: 510 RF: 6 Vyvanse 20 mg capsule 20 mg PO DAILY MDD 1 cap Qty: 28 RF: 0 Vyvanse 70 mg capsule 70 mg PO DAILY MDD 1 tab Qty: 28 RF: 0 Discharge Instructions Instructions: Acute Nausea and Vomiting (ED) Additional Instructions: Your labs are reassuring here today. Please encourage hydration. You may use the Phenergan as prescribed. A rectal option has been sent to your pharmacy. If you develop fever/chills, increased symptoms, inability stay hydrated, or other new/worsening symptoms seek care urgently once again. Otherwise, please follow-up with your primary care provider in the next 1 to 2 weeks for reevaluation. Referrals: Delfino Huang. [Primary Care Provider] - Medical Decision Making Patient is a pleasant 25-year-old gentleman presenting today with chief complaint of nausea, vomiting and diarrhea. He states that this feels similar to when he has been here for this in the past. States that he used to have cyclical vomiting very frequently. States that he had endoscopy and colonoscopy with no definitive diagnosis made. Patient states he does smoke marijuana but only occasionally. Denies any fevers or chills. States this began approximate 4 hours prior to arrival. Reports that he had vomiting x6, diarrhea x3. No blood in either. States he is having some mild epigastric discomfort. No fevers or chills. No previous abdominal surgeries. On exam, patient appears nontoxic. Vital signs are stable. He does not appear significantly dehydrated. Patient has some epigastric discomfort as well as left upper quadrant pain. He denies any alcohol intake recently. Will obtain baseline labs to look for any electrolyte abnormalities, significant dehydration, pancreatitis. Will give Zofran and IV hydration. Patient does have liquid Phenergan but was unable to keep this down. Labs reviewed. White count of 11. H&H is stable. No significant abnormality in CMP. Lipase within normal limits. Urine has reflex to culture with few bacteria and rare epithelial cells. Negative for nitrite negative for leukocyte esterase. Patient does not have any urinary symptoms at this time, will hold off on any treatment until culture is returned. Reevaluated the patient. He is no longer having any vomiting or diarrhea. Is feeling improved. He is agreeable to discharge at this time. We discussed his laboratory findings. That he has done well with Phenergan historically at home, will refill this. However, if he is not able to take the liquids down earlier today, will changes to rectal Phenergan. This also reduce the risk of QT prolongation of the patient is on methadone. Encourage close follow-up with primary care. Return precautions were discussed. Encourage hydration. All of his questions and concerns were addressed and he is in agreement with this plan. HPI General Mode of arrival: ambulatory . Date/Time Provider Initiated Documentation: 01/27/21 10:31 . Limitations to Documentation: no limitations . Information obtained by: patient and RN notes reviewed . History of Present Illness 25 year old M presents to the emergency department with the chief complaint of nausea, vomiting, diarrhea, described as mild and similar to prior episodes, with intensity rated at 2. Quality is described as aching, and is localized to the abdomen. Patient reports no radiation. Patient started experiencing this hour(s) (4) and it has been constant. No relieving factors improve symptom(s), No exacerbating factors reported . Patient notes no other symptoms.. Patient did receive the following treatments prior to arrival, none Related Data Home Medications Medication Instructions Recorded Confirmed methadone 40 mg soluble tablet 80 mg PO DAILY tab 04/02/19 01/27/21 promethazine 6.25 mg/5 mL oral 12.5 mg PO Q6H PRN #473 ml 02/21/20 01/27/21 syrup polyethylene glycol 3350 17 17 g PO DAILY #510 g 10/02/20 01/27/21 gram/dose oral powder lisdexamfetamine 20 mg capsule 20 mg PO DAILY #28 cap MDD 1 cap 12/29/20 01/27/21 lisdexamfetamine 70 mg capsule 70 mg PO DAILY #28 tab-cap MDD 1 12/29/20 01/27/21 tab promethazine 25 mg WA Q6H PRN #12 ea 01/27/21 Previous Rx's Medication Instructions Recorded promethazine 6.25 mg/5 mL oral 12.5 mg PO Q6H PRN #473 ml 02/21/20 syrup polyethylene glycol 3350 17 17 g PO DAILY #510 g 10/02/20 gram/dose oral powder lisdexamfetamine 20 mg capsule 20 mg PO DAILY #28 cap MDD 1 cap 12/29/20 lisdexamfetamine 70 mg capsule 70 mg PO DAILY #28 tab-cap MDD 1 12/29/20 tab promethazine 25 mg WA Q6H PRN #12 ea 01/27/21 Allergies Allergy/AdvReac Type Severity Reaction Status Date / Time docusate [From Senna-S] AdvReac Severe GI UPSET Verified 01/27/21 10:13 senna [From Senna-S] AdvReac Severe GI UPSET Verified 01/27/21 10:13 General Stated Complaint: Nausea/Vomit/Diar DAYRON: 3 Review of Systems Constitutional Constitutional: Reports as per HPI, Denies chills, Denies fatigue, Denies fever(s) and Denies headache(s) ENT Ears, Nose, Mouth, and Throat: Denies headache(s) Cardiovascular Cardiovascular: Reports as per HPI, Denies chest pain and Denies dyspnea Respiratory Respiratory: Reports as per HPI, Denies cough and Denies dyspnea Gastrointestinal Gastrointestinal: Reports as per HPI Genitourinary Genitourinary: Denies system reviewed and no additional complaints, except as documented (patient denies any change in urinary habits) Musculoskeletal Musculoskeletal: Reports as per HPI and Denies back pain Integumentary/Breasts Skin/Breast: Reports as per HPI and Denies rash Neurologic Neurologic: Reports as per HPI and Denies headache(s) Endocrine Endocrine: Denies fatigue [facility] Medical History (Updated 01/27/21 @ 11:33 by CLINTON Bartlett) Attention deficit hyperactivity disorder, combined type Cannabis abuse Cyclic vomiting syndrome (~08/10/19) 08/10/19 [facility] Gastroesophageal reflux disease with esophagitis (10/10/16) Learning difficulty Methadone maintenance therapy patient (01/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 Maternal Grandmother Depression COPD (chronic obstructive pulmonary disease) Sister Asthma Brother No problems noted. Paternal Grandfather Depression Paternal Grandmother No problems noted. Social History Smoking/Tobacco Use Status: Current every day Tobacco Type: cigarettes Quit status: not considering quitting Second Hand Exposure: Yes Smoking risk assessment performed?: Yes Alcohol Intake: current Alcohol Intake frequency: a few times a month Alcohol type: beer Drug use: Current Sobriety Substance use type: marijuana Details: was a former substance user Caregiver/Support person: No Household members: other Details: Gram/mom Pets and animals: Yes Pets and animals: cat(s) and dog(s) Sexually active: Yes Do you think of yourself as: straight/heterosexual Current gender identity: decline to answer What is your relationship status?: living with partner How often do you talk on the phone with friends or family?: decline to answer How often do you get together with friends or relatives?: decline to answer How often do you attend caodaism or nondenominational services?: decline to answer Do you belong to any clubs or organized social groups?: decline to answer Panel score (0-1 are the most socially isolated patients): 1 What type of physical activity do you participate in: walking Duration: 15-30 minutes/day Frequency: 3-4 times per week Ofelia/Nondenominational: Unknown Special ofelia needs: No Do you feel safe at home: Yes Do you feel safe in your relationship?: Yes Exam Const General: cooperative, healthy appearing, comfortable, no acute distress and well developed Nutritional Appearance: average body habitus and well nourished Orientation: alert and awake HENMT Head: normal to inspection Mouth: moist mucous membranes Resp Effort & Inspection: normal respiratory effort, able to speak in complete sentences and no respiratory distress Auscultation: clear to auscultation bilaterally, no rales, no rhonchi and no wheezes Cardio Rate: regular rate Rhythm: regular rhythm Heart Sounds: S1 normal and S2 normal GI Inspection: normal to inspection, non-distended and no visible herniation Palpation: soft, no hepatosplenomegaly, not firm, no guarding and tender in the epigastrum and in the LLQ Percussion: normal to percussion Auscultation: normal bowel sounds Back/Spine/Pelvis Back: no CVA tenderness Skin General skin exam: no rashes or lesions noted Trauma: no lacerations or abrasions Neuro General: patient alert and patient awake Cognition: normal cognition Speech: speech normal Gait: normal gait Psych Appearance: grossly normal and well kempt Mental Status: mental status grossly normal Speech and Movement: speech and movement normal Course Vital Signs Vital signs: Vital Signs Temperature 36.7 C 01/27/21 10:11 Pulse 62 01/27/21 10:11 Respiratory Rate 20 01/27/21 10:11 Blood Pressure 121/86 01/27/21 10:11 Pulse Oximetry 100 01/27/21 10:11 Temperature 36.7 C 01/27/21 10:11 Temperature Source Skin 01/27/21 10:11 Pulse 62 01/27/21 10:11 Respiratory Rate 20 01/27/21 10:11 Respiratory Effort Non-Labored 01/27/21 10:14 Blood Pressure 121/86 01/27/21 10:11 Blood Pressure Position Sitting 01/27/21 10:11 Pulse Oximetry 100 01/27/21 10:11 Oxygen Delivery Method Room Air 01/27/21 10:11 Oxygen Flow Rate 0 01/27/21 10:11 Pain Level 2 01/27/21 10:11
[2021-01-27 10:53] LABS: Abs Immature Grans 0.04 10^3/uL (0.0-0.06); Absolute Basophil Count 0.09 10^3/uL (0.0-0.2); Absolute Eosinophil Count 0.26 10^3/uL (0.0-0.7); Absolute Lymphocyte Count 2.04 10^3/uL (1.2-3.4); Absolute Monocyte Count 0.64 10^3/uL (0.1-0.8); Absolute Neutrophil Count 8.02 10^3/uL (1.2-6.7); Basophils % 0.8; Eosinophils % 2.3; HCT 47.2 % (40.0-50.0); HGB 15.7 g/dL (13.5-17.5); Immature Grans % 0.4; Lymphocytes % 18.4; MCH 31.9 pg (27.0-33.0); MCHC 33.3 % (32.0-36.0); MCV 95.9 fL (80-95); MPV 10.7 fL (8.0-11.0); Monocytes % 5.8; Neutrophils % 72.3; Nucleated RBC 0 %; Platelet Count 264 10^3/uL (130-400); RBC 4.92 10^6/uL (4.36-5.78); RDW 11.9 % (11.8-14.1); RDW-SD 42.1 fL; WBC 11.09 10^3/uL (4.4-10.8)
[2021-01-27 10:57] LABS: Bilirubin Negative (Negative); Blood Negative (Negative); Clarity Clear (Clear); Glucose Negative (Negative); Ketones Negative (Negative); Leukocyte Esterase Negative (Negative); Nitrite Negative (Negative); Urobilinogen 0.2 EU/dL (Up TO 0.2); pH 8.5 (5-8)
[2021-01-27] MEDS: Ondansetron 4 MG/2 ML VIAL IVP (10:57)
[2021-01-27] MEDS: Normal Saline 1,000 ML 1000 ML IV (10:57)
[2021-01-27] MEDS: Normal Saline Flush 10 ML SYR IVP (10:57)
[2021-01-27 11:02] LABS: Magnesium 2.1 mg/dL (1.8-2.4)
[2021-01-27 11:03] LABS: Lipase 82 U/L (73-393)
[2021-01-27 11:04] LABS: WBC 0-2 HPF (0-5)
[2021-01-27 11:05] LABS: Bacteria Few HPF (Negative); C & S Indicated? Yes; Casts Negative LPF (Negative); Crystals Negative HPF (Negative); Epithelial Cells Rare HPF (Negative); Mucus Trace (Negative); RBC 0-2 HPF (0-2)
[2021-01-27 11:06] LABS: ALT 33 U/L (16-63); AST 24 U/L (15-37); Albumin 4.5 g/dL (3.4-5.0); Alkaline Phosphatase 75 U/L (46-116); Anion Gap 6.7 mmol/L (3-11); BUN 12 mg/dL (7-18); Bilirubin, Total 0.5 mg/dL (0.2-1.0); CO2 32.3 mmol/L (21.0-32.0); CREATININE 0.9 mg/dL (0.70-1.30); Calcium 9.3 mg/dL (8.5-10.1); Chloride 105 mmol/L (98-107); Glucose 98 mg/dL (74-106); Potassium 4.3 mmol/L (3.5-5.1); Sodium 144 mmol/L (136-145); Total Protein 7.9 g/dL (6.4-8.2)
[2021-01-27 11:53] VITALS: BP 107/61; PULSE 79; RESP 16; TEMP 36.8; O2SAT 100
== END 2021-01-27 15:58 | disposition home or self-care (01) ==
PROVIDERS: Emergency Provider Physician Assistant; PCP Family Medicine
DX: R11.2 Nausea with vomiting, unspecified (principal); R19.7 Diarrhea, unspecified
CPT/HCPCS: 36415; 80053; 83690; 93005; 96361; 96374; 99284; 81003; 81015; 83735; 85025; 87086; 93010; J2405

== ENCOUNTER 2021-04-23 15:15 | Outpatient (REF) | payer MEDICAID, SELFPAY ==
[2021-04-25 15:24] LABS: Chlamydia Result Negative (Negative); GC Result Negative (Negative)
[2021-04-26 11:28] LABS: HSV 1 DNA Result Negative (Negative); HSV 2 DNA Result Positive (Negative)
== END 2021-04-23 15:16 | disposition home or self-care (01) ==
LOC: NCHCN 15:15
PROVIDERS: Visit Provider Family Medicine
DX: L98.8 Other specified disorders of the skin and subcutaneous tissue (principal); Z11.3 Encounter for screening for infections with a predominantly sexual mode of transmission
CPT/HCPCS: 87491; 87529; 87591; 87070; 87205

== ENCOUNTER 2021-07-03 16:09 | Outpatient (REF) | payer MEDICAID, SELFPAY ==
--- NOTE | 2021-07-03 15:30 | SKI_PTH ---
PATIENT: Kj Stacy LOC: [facility] U#:[id number] AGE/SX: 25/M ROOM: RE07/03/[address]: Delfino Huang MD : 1995 BED: DIS: 07/03/2021 SPEC #: [id number] RECD: 07/03/21 18:07 STATUS: COLLINS REQ #: [id number] TIFFANIE: 07/03/21 15:[address]: Delfino Huang DEPT: Surgical Specimen RECD BY: Lillian Ag Tissues: 1 - SKIN BIOPSY(SHAVE/PUNCH) Procedures: SKIN LEVEL 4 Comments: [id number]
== END 2021-07-03 16:10 | disposition home or self-care (01) ==
LOC: LBN 16:09
PROVIDERS: PCP Family Medicine; Visit Provider Family Medicine
DX: B07.9 Viral wart, unspecified (principal)
CPT/HCPCS: 88305

== ENCOUNTER 2021-09-04 03:18 | Emergency (ER) | payer MEDICAID, SELFPAY ==
[2021-09-04 03:29] VITALS: BP 136/85; PULSE 86; RESP 20; TEMP 37.1; O2SAT 98
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
[2021-09-04] MEDS: Normal Saline 500 ML 1000 ML IV (03:51)
[2021-09-04 03:59] LABS: Abs Immature Grans 0.02 10^3/uL (0.0-0.06); Absolute Basophil Count 0.07 10^3/uL (0.0-0.2); Absolute Eosinophil Count 0.17 10^3/uL (0.0-0.7); Absolute Lymphocyte Count 1.49 10^3/uL (1.2-3.4); Absolute Monocyte Count 0.35 10^3/uL (0.1-0.8); Absolute Neutrophil Count 6.76 10^3/uL (1.2-6.7); Basophils % 0.8; Eosinophils % 1.9; HGB 15.3 g/dL (13.5-17.5); Immature Grans % 0.2; Lymphocytes % 16.8; MCH 32.3 pg (27.0-33.0); MCV 95.1 fL (80-95); MPV 10.4 fL (8.0-11.0); Neutrophils % 76.3; Nucleated RBC 0 %; Platelet Count 240 10^3/uL (130-400); RBC 4.73 10^6/uL (4.36-5.78); RDW 12.3 % (11.8-14.1); RDW-SD 43.2 fL; WBC 8.86 10^3/uL (4.4-10.8)
[2021-09-04 04:04] LABS: ALT 30 U/L (16-63); AST 27 U/L (15-37); Albumin 4.2 g/dL (3.4-5.0); Alkaline Phosphatase 81 U/L (46-116); Anion Gap 11.4 mmol/L (3-11); BUN 11 mg/dL (7-18); Bilirubin, Total 0.5 mg/dL (0.2-1.0); CO2 28.6 mmol/L (21.0-32.0); CREATININE 0.9 mg/dL (0.70-1.30); Calcium 8.8 mg/dL (8.5-10.1); Chloride 103 mmol/L (98-107); Glucose 99 mg/dL (74-106); Lipase 58 U/L (73-393); Potassium 3.9 mmol/L (3.5-5.1); Sodium 143 mmol/L (136-145); Total Protein 7.3 g/dL (6.4-8.2)
[2021-09-04] MEDS: Famotidine 20 MG/2 ML VIAL IVP (05:08)
[2021-09-04] MEDS: LORazepam 2 MG/ML VIAL 1 MG IVP (05:08)
[2021-09-04 05:55] VITALS: PULSE 83; RESP 16; TEMP 37.3; O2SAT 97
[2021-09-04 06:05] VITALS: TEMP 37.7
[2021-09-04 06:50] VITALS: BP 107/70; PULSE 84; RESP 14; TEMP 37.4; O2SAT 99
== END 2021-09-04 06:50 | disposition home or self-care (01) ==
PROVIDERS: Emergency Provider Emergency Medicine; PCP Family Medicine
DX: R11.2 Nausea with vomiting, unspecified (principal); R10.9 Unspecified abdominal pain
CPT/HCPCS: 80053; 83690; 96361; 96365; 96375; 99284; 85025; 99283; J2060

== ENCOUNTER 2022-01-27 07:05 | Emergency (ER) | payer MEDICAID, SELFPAY ==
[2022-01-27 07:13] VITALS: BP 133/116; PULSE 77; RESP 17; TEMP 36.8; O2SAT 99
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
[2022-01-27 07:35] LABS: Abs Immature Grans 0.02 10^3/uL (0.0-0.06); Absolute Basophil Count 0.09 10^3/uL (0.0-0.2); Absolute Lymphocyte Count 2.38 10^3/uL (1.2-3.4); Absolute Monocyte Count 0.55 10^3/uL (0.1-0.8); Absolute Neutrophil Count 5.12 10^3/uL (1.2-6.7); Basophils % 1.1; Eosinophils % 3.5; HCT 43.8 % (40.0-50.0); HGB 15.2 g/dL (13.5-17.5); Immature Grans % 0.2; Lymphocytes % 28.1; MCH 32.8 pg (27.0-33.0); MCHC 34.7 % (32.0-36.0); MCV 95 fL (80-95); MPV 10.9 fL (8.0-11.0); Monocytes % 6.5; Neutrophils % 60.6; Platelet Count 247 10^3/uL (130-400); RBC 4.63 10^6/uL (4.36-5.78); RDW 11.8 % (11.8-14.1); WBC 8.46 10^3/uL (4.4-10.8)
[2022-01-27] MEDS: Normal Saline 1,000 ML 1000 ML IV (07:38)
[2022-01-27 07:48] LABS: ALT 32 U/L (16-63); AST 23 U/L (15-37); Albumin 4.1 g/dL (3.4-5.0); Alkaline Phosphatase 72 U/L (46-116); Anion Gap 6.1 mmol/L (3-11); BUN 11 mg/dL (7-18); Bilirubin, Total 0.2 mg/dL (0.2-1.0); CO2 30.9 mmol/L (21.0-32.0); CREATININE 0.8 mg/dL (0.70-1.30); Calcium 8.9 mg/dL (8.5-10.1); Chloride 104 mmol/L (98-107); Glucose 104 mg/dL (74-106); Lipase 75 U/L (73-393); Magnesium 1.9 mg/dL (1.8-2.4); Sodium 141 mmol/L (136-145); Total Protein 7.4 g/dL (6.4-8.2)
--- NOTE | 2022-01-27 08:34 | W.EDPROG ---
Date of service: 01/27/22 Time of Service: 08:34 Medical Decision Making Resting comfortably no acute distress no further vomiting. Labs are unremarkable. Patient endorses is that Zofran sublingual is helped in the past. Will prescribe and sent to pharmacy. Patient will follow up with his primary care physician. Home care instructions and return precautions given Sign Out Sign Out Data: Sign Out Comment: history of cyclic vomit, on methadone denies illicit drug use, pending reeval after phenergan and fluids Last updated by Pablo Barrios MD at 01/27/22 07:45 Discharge Plan Disposition Patient Disposition: HOME Condition: Improving Discharge Details Clinical Impression: Nausea & vomiting Primary Care Provider: Delfino Huang ED Provider: Tuan Smalls Home Meds and New Rx's Prescriptions: New ondansetron 4 mg tablet,disintegrating 4 mg PO Q8H PRN (Reason: nausea and vomiting) Qty: 14 0RF No Action valacyclovir [Valtrex] 1 gram tablet 1,000 mg PO BID PRN triamcinolone acetonide 0.1 % ointment 1 applic topical BID Qty: 80 0RF methadone 40 mg tablet,soluble 48 mg PO DAILY Label Comments: BAART polyethylene glycol 3350 [Miralax] 17 gram/dose powder 17 g PO DAILY Qty: 1020 11RF promethazine 6.25 mg/5 mL syrup 12.5 mg PO Q6H PRN (Reason: nausea and vomiting) Qty: 473 1RF Rx Instructions: 3 doses during day; last dose no later than 4 hr before bedtime Vyvanse 70 mg capsule 70 mg PO DAILY MDD 1 tab Qty: 28 0RF Vyvanse 20 mg capsule 20 mg PO DAILY MDD 1 cap Qty: 28 0RF ondansetron 4 mg tablet,disintegrating 4 mg PO Q8H PRN (Reason: nausea and vomiting) Qty: 8 0RF promethazine 25 mg suppository [address] Q6H PRN (Reason: nausea and vomiting) Qty: 12 0RF Discharge Instructions Instructions: Acute Nausea and Vomiting (ED) Additional Instructions: Please follow-up with your primary care physician. Please return to the emergency department for any worsening symptoms.
[2022-01-27 08:41] VITALS: BP 99/61; PULSE 74; RESP 16; TEMP 36.8; O2SAT 99
== END 2022-01-27 08:44 | disposition home or self-care (01) ==
PROVIDERS: Emergency Medicine; Emergency Provider Emergency Medicine; PCP Family Medicine
DX: R11.2 Nausea with vomiting, unspecified (principal); R10.13 Epigastric pain; F17.210 Nicotine dependence, cigarettes, uncomplicated
CPT/HCPCS: 36415; 80053; 83690; 96361; 96374; 99284; 83735; 85025

== ENCOUNTER 2022-03-08 19:08 | Emergency (ER) | payer MEDICAID, SELFPAY ==
--- NOTE | 2022-03-08 19:15 | RT.EKG_ITS ---
APPROVED REPORT Exam: Resting ECG Reason for Exam: Chest Pain Patient Location: E HR:88 bpm ECG Measurements Heart Rate 88 AXIS HI 184 P 66 QRSd 102 QRS 44 QT 362 T 55 QTc 439 Conclusion Sinus rhythm...normal P axis, V-rate 60- 99 sinus rhythm, normal axis, normal intervals, non sichemic
[2022-03-08 19:16] VITALS: BP 130/69; PULSE 97; RESP 18; TEMP 36.4; O2SAT 96
--- NOTE | 2022-03-08 19:30 | DI.RAD_ITS ---
Exam(s) XR PORTABLE CHEST AP EXAM: XR PORTABLE CHEST AP CLINICAL HISTORY: anterior lateral left chest pain, pleuritic. TECHNIQUE: 2D digital imaging was performed. COMPARISON: CR XR ribs LT w PA lat chest from 12/12/2018 FINDINGS: LUNGS: Clear. No pleural abnormality seen. HEART: Normal. MEDIASTINUM: Normal. OTHER FINDINGS: None. IMPRESSION: No acute pulmonary findings. DATA REPOSITORY: RADIATION DOSE DELIVERED: Total DLP
[2022-03-08] MEDS: Ketorolac 15 MG/ML VIAL IVP (19:50)
[2022-03-08] MEDS: Normal Saline 500 ML 1000 ML IV (19:50)
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
[2022-03-08 20:18] LABS: ALT 25 U/L (16-63); AST 17 U/L (15-37); Albumin 4.2 g/dL (3.4-5.0); Alkaline Phosphatase 61 U/L (46-116); Anion Gap 10.3 mmol/L (3-11); BUN 16 mg/dL (7-18); Bilirubin, Total 0.4 mg/dL (0.2-1.0); CO2 26.7 mmol/L (21.0-32.0); CREATININE 1.2 mg/dL (0.70-1.30); Calcium 8.9 mg/dL (8.5-10.1); Chloride 104 mmol/L (98-107); Estimated GFR 86.07 (mL/min/1.73m2); Glucose 82 mg/dL (74-106); Potassium 3.5 mmol/L (3.5-5.1); Sodium 141 mmol/L (136-145); Total Protein 7.1 g/dL (6.4-8.2)
[2022-03-08 20:41] LABS: Abs Immature Grans 0.07 10^3/uL (0.0-0.06); Absolute Basophil Count 0.08 10^3/uL (0.0-0.2); Absolute Eosinophil Count 0.15 10^3/uL (0.0-0.7); Absolute Lymphocyte Count 2.52 10^3/uL (1.2-3.4); Absolute Monocyte Count 0.92 10^3/uL (0.1-0.8); Absolute Neutrophil Count 11.33 10^3/uL (1.2-6.7); Basophils % 0.5; HCT 40.3 % (40.0-50.0); Immature Grans % 0.5; Lymphocytes % 16.7; MCH 33.3 pg (27.0-33.0); MCHC 34.7 % (32.0-36.0); MCV 96 fL (80-95); MPV 11.3 fL (8.0-11.0); Monocytes % 6.1; Neutrophils % 75.2; Platelet Count 237 10^3/uL (130-400); RDW 11.9 % (11.8-14.1); RDW-SD 41.8 fL; WBC 15.07 10^3/uL (4.4-10.8)
[2022-03-08] MEDS: ACETAMINOPHEN 1,000 MG/100 ML BTL 400 MG IVPB (20:46)
--- NOTE | 2022-03-08 21:09 | DI.VRAD_ITS ---
PROCEDURE INFORMATION: Exam: XR Chest Exam date and time: 03/08/2022 8:20 PM Age: 26 years old Clinical indication: Other: Anterior lateral left chest pain, pleuritic TECHNIQUE: Imaging protocol: Radiologic exam of the chest. Views: 1 view. COMPARISON: CR XR ribs LT w PA lat chest 12/12/2018 9:25 AM FINDINGS: Lungs: Unremarkable. No consolidation. Pleural spaces: Unremarkable. No pleural effusion. No pneumothorax. Heart/Mediastinum: Unremarkable. No cardiomegaly. Bones/joints: Unremarkable. IMPRESSION: 1. No acute findings. 2. Clear lungs and pleural space. 3. No acute skeletal pathology. Dictated and Authenticated by: Chaz Alvarenga MD. Ordering:P.CLAUDIO Dickerson MD
[2022-03-08 22:28] VITALS: BP 115/57; PULSE 68; RESP 18; O2SAT 98
== END 2022-03-08 22:30 | disposition home or self-care (01) ==
PROVIDERS: Emergency Provider Emergency Medicine; PCP Family Medicine
DX: R07.89 Other chest pain (principal); F17.210 Nicotine dependence, cigarettes, uncomplicated
CPT/HCPCS: 80053; 93005; 96374; 96375; 99284; 71045; 85025; 93010; J0131; J1885

== ENCOUNTER → 2022-03-14 15:03 | Outpatient (CLI) | payer MEDICAID, SELFPAY ==
--- NOTE | 2022-03-14 15:00 | DI.RAD_ITS ---
Exam(s) XR RIBS LT W PA LAT CHEST EXAM: XR RIBS LT W PA LAT CHEST CLINICAL HISTORY: left-sided rib pain, pleurodynia-R07.81 TECHNIQUE: 2D digital imaging was performed. Six images are obtained. COMPARISON: CR XR ribs LT w PA lat chest from 12/12/2018 FINDINGS: MEDIASTINUM: Normal. HEART: Normal. PULMONARY VASCULATURE: Normal. LUNGS: Clear. PLEURAL SPACE: No pleural effusion or pneumothorax. BONE:Within normal limits for the patient's age. LEFT RIBS: Normal. OTHER FINDINGS:Normal. IMPRESSION: 1. No acute pulmonary findings. 2. Unremarkable left ribs. DATA REPOSITORY: RADIATION DOSE DELIVERED:
== END ==
PROVIDERS: PCP Family Medicine; Visit Provider Nurse Practitioner Family
DX: R07.81 Pleurodynia (principal)
CPT/HCPCS: 71046; 71100

== ENCOUNTER 2022-03-15 15:20 | Emergency (ER) | payer MEDICAID, SELFPAY ==
[2022-03-15 15:38] VITALS: BP 108/75; PULSE 84; RESP 18; TEMP 36.7; O2SAT 97
--- NOTE | 2022-03-15 16:00 | RT.EKG_ITS ---
APPROVED REPORT Exam: Resting ECG Reason for Exam: CHEST PAIN Patient Location: E HR:55 bpm ECG Measurements Heart Rate 55 AXIS OH 188 P 76 QRSd 103 QRS 59 QT 392 T 59 QTc 376 Conclusion Sinus bradycardia Probable left atrial enlargement. No ST elevation
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
--- NOTE | 2022-03-15 16:30 | DI.CT_ITS ---
Exam(s) CT CHEST PE CTA EXAM: CT CHEST PE CTA CLINICAL HISTORY: substernal pain, pain with inspiration. TECHNIQUE: Imaging Protocol: Axial CT angiography was performed with multi-slice acquisition and mu lti-planar and/or 3D reconstructions. CONTRAST MATERIAL: Intravenous: Omnipaque 350 contrast volume:100 mL COMPARISON: CT CHEST ABD PELVIS WITH CONTRAST from 10/18/2017 CT THORACIC AND LUMBAR SP RECONS from 10/18/[address] ABDOMEN PELVIS W from 12/12/2018 FINDINGS: Tracheobronchial tree: Patent where visualized. Pulmonary parenchyma: No focal consolidation. There is a 7 mm noncalcified nodule in the left lower lobe. It is been stable dating back to 2018. This stability is consistent with benign etiology. No further follow-up is recommended. No architectural distortion. Pulmonary Arteries: No evidence of filling defect to suggest pulmonary emboli. Mediastinum and Мария: No dominant adenopathy or fluid collection. The esophagus is unremarkable. Visualized thyroid gland: Unremarkable. Pleura: No pneumothorax or right pleural effusion. Small left pleural effusion. Heart: The heart is not dilated. No coronary artery calcifications are seen. No pericardial effusion. Aorta: Thoracic aorta non-dilated. No evidence of dissection. Upper abdomen: Unremarkable. Soft tissues: Unremarkable. Bones: Within normal limits for the patient's age. IMPRESSION: 1. No evidence of pulmonary embolism, thoracic aortic dissection or aneurysm. 2. Small left pleural effusion. RADIATION DOSE DELIVERED: 304.27mGy.cm Total DLP DATA REPOSITORY: All CT scans at this facility are submitted to the National Radiology Data Registry (NRDR) Dose Index Registry (DIR) with the [employer] (ACR). RADIATION OPTIMIZATION: All CT scans at this facility use at least one of these dose optimization te chniques: automated exposure control; mA and/or kV adjustment per patient size (includes targeted exa ms where dose is matched to clinical indication); or iterative reconstruction.
[2022-03-15 17:03] LABS: Abs Immature Grans 0.02 10^3/uL (0.0-0.06); Absolute Basophil Count 0.07 10^3/uL (0.0-0.2); Absolute Eosinophil Count 0.29 10^3/uL (0.0-0.7); Absolute Lymphocyte Count 1.86 10^3/uL (1.2-3.4); Absolute Monocyte Count 0.56 10^3/uL (0.1-0.8); Absolute Neutrophil Count 6.36 10^3/uL (1.2-6.7); Basophils % 0.8; Eosinophils % 3.2; HCT 45.7 % (40.0-50.0); HGB 15.7 g/dL (13.5-17.5); Immature Grans % 0.2; Lymphocytes % 20.3; MCH 32.5 pg (27.0-33.0); MCHC 34.4 % (32.0-36.0); MCV 95 fL (80-95); MPV 10.5 fL (8.0-11.0); Monocytes % 6.1; Neutrophils % 69.4; Platelet Count 295 10^3/uL (130-400); RBC 4.83 10^6/uL (4.36-5.78); RDW 11.8 % (11.8-14.1); RDW-SD 41.5 fL; WBC 9.16 10^3/uL (4.4-10.8)
[2022-03-15] MEDS: Omnipaque 350 MG/ML 100 ML BTL IJ (17:03)
[2022-03-15 17:04] LABS: ESR 9 mm/hr (0-15)
[2022-03-15] MEDS: Lactated Ringers 1,000 ML 1000 ML IV (17:13)
[2022-03-15] MEDS: Ketorolac 15 MG/ML VIAL IVP (17:13)
[2022-03-15 17:16] VITALS: BP 116/77; PULSE 53; RESP 18; TEMP 36.9; O2SAT 97
[2022-03-15 17:19] LABS: ALT 24 U/L (16-63); AST 19 U/L (15-37); Albumin 4.3 g/dL (3.4-5.0); Alkaline Phosphatase 74 U/L (46-116); Anion Gap 6.5 mmol/L (3-11); BUN 17 mg/dL (7-18); Bilirubin, Total 0.3 mg/dL (0.2-1.0); C-Reactive Protein 0.21 mg/dL (0.0-0.3); CO2 30.5 mmol/L (21.0-32.0); CREATININE 0.9 mg/dL (0.70-1.30); Calcium 9.5 mg/dL (8.5-10.1); Chloride 101 mmol/L (98-107); Estimated GFR 121.55 (mL/min/1.73m2); Glucose 92 mg/dL (74-106); Lipase 58 U/L (73-393); Sodium 138 mmol/L (136-145); Total Protein 7.8 g/dL (6.4-8.2); Troponin I < 50 ng/L (<or=60)
--- NOTE | 2022-03-15 17:43 | DI.VRAD_ITS ---
PROCEDURE INFORMATION: Exam: CTA Chest With Contrast Exam date and time: 03/15/2022 4:58 PM Age: 26 years old Clinical indication: Other: Substernal pain, pain with inspirtion TECHNIQUE: Imaging protocol: Computed tomographic angiography of the chest with contrast. 3D rendering (Not supervised by radiologist): MIP and/or 3D reconstructed images were created by the technologist. Radiation optimization: All CT scans at this facility use at least one of these dose optimization techniques: automated exposure control; mA and/or kV adjustment per patient size (includes targeted exams where dose is matched to clinical indication); or iterative reconstruction. Contrast material: 350; Contrast volume: 100 ml; Contrast route: INTRAVENOUS (IV); COMPARISON: CT CHEST ABD PELVIS WITH CONTRAST 10/19/2017 12:17 AM FINDINGS: Pulmonary arteries: Normal. No pulmonary emboli. Aorta: Unremarkable. No aortic aneurysm. No aortic dissection. Lungs: 8 mm nodule in the left lower lobe posteriorly best seen axial series 5, image 38. This is unchanged dating back to 10/19/2017. Stability over this period of time is consistent with a benign etiology and no further imaging follow-up recommended for this nodule Pleural spaces: Small left pleural effusion. Heart: Unremarkable. No cardiomegaly. No pericardial effusion. Lymph nodes: Unremarkable. No enlarged lymph nodes. Bones/joints: Unremarkable. No acute fracture. Soft tissues: Unremarkable. IMPRESSION: 1. No pulmonary embolism identified 2. Small left pleural effusion Dictated and Authenticated by: Hawa Palumbo MD. Ordering:PEYTON Clemons MD
[2022-03-15 18:05] LABS: COVID-19 PCR Negative (Negative); Influenza A PCR Negative (Negative); Influenza B PCR Negative (Negative); RSV PCR Negative (Negative)
== END 2022-03-15 18:23 | disposition home or self-care (01) ==
PROVIDERS: Emergency Provider Physician Assistant; PCP Family Medicine
DX: J90 Pleural effusion, not elsewhere classified (principal); Z20.822 Contact with and (suspected) exposure to COVID-19
CPT/HCPCS: 71275; 80053; 83690; 85652; 87637; 93005; 96361; 96374; 99285; 84484; 85025; 86140; 93010; 99284; J1885; J3490

== ENCOUNTER 2022-08-09 05:50 | Emergency (ER) | payer MEDICAID, SELFPAY ==
--- NOTE | 2022-08-09 05:45 | DI.RAD_ITS ---
Exam(s) XR PORTABLE CHEST AP EXAM: XR PORTABLE CHEST AP CLINICAL HISTORY: cough, right sided crackles TECHNIQUE: 2D digital imaging was performed of the chest. One image was obtained. An AP view was ob tained. COMPARISON: CR,XR XR PORTABLE CHEST AP from 03/08/2022 FINDINGS: MEDIASTINUM: Normal. HEART: Normal. PULMONARY VASCULATURE: Normal. LUNGS: Clear. PLEURAL SPACE: No pleural effusion or pneumothorax. BONE:Within normal limits for the patient's age. OTHER FINDINGS:Normal. IMPRESSION: No acute pulmonary findings. DATA REPOSITORY: RADIATION DOSE DELIVERED:
[2022-08-09 05:55] VITALS: BP 113/78; PULSE 94; RESP 25; TEMP 36.5; O2SAT 99
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
[2022-08-09] MEDS: Acetaminophen 500 MG TAB 1000 MG PO (06:11)
[2022-08-09 06:29] VITALS: RESP 4; RESP 5
[2022-08-09] MEDS: Albuterol/Ipratropium 3 ML UPD VIAL UPD (06:29)
[2022-08-09 06:57] LABS: COVID-19 PCR Negative (Negative); Influenza A PCR Negative (Negative); Influenza B PCR Negative (Negative); RSV PCR Negative (Negative)
[2022-08-09 07:17] LABS: Source Nasopharynx
[2022-08-09] MEDS: Albuterol HFA 8 GM 60 PUFF INH IH (07:37)
[2022-08-09 07:38] VITALS: BP 121/69; PULSE 78; RESP 18; O2SAT 97
--- NOTE | 2022-08-09 07:53 | DI.VRAD_ITS ---
PROCEDURE INFORMATION: Exam: XR Chest Exam date and time: 08/09/2022 6:00 AM Age: 26 years old Clinical indication: Cough; Additional info: Cough, right sided crackles TECHNIQUE: Imaging protocol: Radiologic exam of the chest. Views: 1 view. COMPARISON: CR XR RIBS LT W PA LAT CHEST 03/14/2022 3:28 PM FINDINGS: Lungs: No consolidation. Pleural spaces: No large pleural effusion. Heart/Mediastinum: No cardiomegaly. Bones/joints: Unremarkable. IMPRESSION: No acute findings to explain reported symptoms. Dictated and Authenticated by: Sofie Kulkarni MD. Ordering:ADILENE Adhikari MD
== END 2022-08-09 07:38 | disposition home or self-care (01) ==
PROVIDERS: Emergency Provider Student in an Organized Health Care Education/Training Program; PCP Family Medicine
DX: J18.9 Pneumonia, unspecified organism (principal); Z20.822 Contact with and (suspected) exposure to COVID-19; R05.9 Cough, unspecified; F17.210 Nicotine dependence, cigarettes, uncomplicated
CPT/HCPCS: 87637; 96372; 99283; 99284; 71045; J7620

== ENCOUNTER 2022-12-03 21:38 | Emergency (ER) | payer MEDICAID, SELFPAY ==
[2022-12-03 21:41] VITALS: BP 121/69; PULSE 95; RESP 18; TEMP 36.6; O2SAT 98
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
[2022-12-03] MEDS: LORazepam 2 MG/ML VIAL IVP (23:44)
[2022-12-03] MEDS: Prochlorperazine 10 MG/2 ML VIAL IVP (23:45)
[2022-12-03] MEDS: Normal Saline 1,000 ML 1000 ML IV (23:45)
[2022-12-04 00:43] LABS: Abs Immature Grans 0.03 10^3/uL (0.0-0.06); Absolute Basophil Count 0.05 10^3/uL (0.0-0.2); Absolute Eosinophil Count 0.01 10^3/uL (0.0-0.7); Absolute Lymphocyte Count 0.34 10^3/uL (1.2-3.4); Absolute Monocyte Count 0.74 10^3/uL (0.1-0.8); Absolute Neutrophil Count 8.16 10^3/uL (1.2-6.7); Basophils % 0.5; Eosinophils % 0.1; HCT 38.9 % (40.0-50.0); HGB 13.1 g/dL (13.5-17.5); Immature Grans % 0.3; Lymphocytes % 3.6; MCH 32.4 pg (27.0-33.0); MCHC 33.7 % (32.0-36.0); MCV 96 fL (80-95); MPV 10.6 fL (8.0-11.0); Monocytes % 7.9; Neutrophils % 87.6; Platelet Count 157 10^3/uL (130-400); RBC 4.04 10^6/uL (4.36-5.78); RDW 12.2 % (11.8-14.1); WBC 9.33 10^3/uL (4.4-10.8)
[2022-12-04 00:58] LABS: ALT 21 U/L (16-63); AST 19 U/L (15-37); Albumin 3.5 g/dL (3.4-5.0); Alkaline Phosphatase 63 U/L (46-116); Anion Gap 7.6 mmol/L (3-11); BUN 12 mg/dL (7-18); Bilirubin, Total 0.4 mg/dL (0.2-1.0); CO2 26.4 mmol/L (21.0-32.0); CREATININE 0.9 mg/dL (0.70-1.30); Calcium 7.8 mg/dL (8.5-10.1); Chloride 103 mmol/L (98-107); Glucose 93 mg/dL (74-106); Lipase 14 U/L (16-77); Magnesium 1.5 mg/dL (1.8-2.4); Potassium 3.3 mmol/L (3.5-5.1); Sodium 137 mmol/L (136-145); Total Protein 5.9 g/dL (6.4-8.2)
== END 2022-12-04 01:15 | disposition home or self-care (01) ==
PROVIDERS: Emergency Provider Emergency Medicine; PCP Family Medicine
DX: R11.2 Nausea with vomiting, unspecified (principal); E83.42 Hypomagnesemia; F41.9 Anxiety disorder, unspecified; F17.210 Nicotine dependence, cigarettes, uncomplicated; F12.90 Cannabis use, unspecified, uncomplicated; F11.20 Opioid dependence, uncomplicated
CPT/HCPCS: 80053; 83690; 96361; 96374; 96375; 99283; 83735; 85025; J0780; J2060

== ENCOUNTER 2024-08-26 14:36 | Emergency (ER) | payer SELFPAY ==
[2024-08-26 14:39] VITALS: BP 126/69; PULSE 89; RESP 20; TEMP 36.5; O2SAT 99
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
--- NOTE | 2024-08-26 15:00 | DI.RAD_ITS ---
Exam(s) XR CHEST 2V PA LATERAL EXAM: XR CHEST 2V PA LATERAL CLINICAL HISTORY: Chest pain TECHNIQUE: 2D digital imaging was performed. Two views. COMPARISON: CR,XR XR PORTABLE CHEST AP from 08/09/2022 FINDINGS: HEART: Normal size. Aorta: Not dilated. PULMONARY VASCULATURE: Normal. MEDIASTINUM: Unremarkable. LUNGS: Clear. PLEURAL SPACE: No pleural effusion or pneumothorax. BONE:Unremarkable for age. SOFT TISSUES: Unremarkable. IMPRESSION: No acute abnormality. DATA REPOSITORY: RADIATION DOSE DELIVERED:
--- NOTE | 2024-08-26 15:00 | RT.EKG_ITS ---
APPROVED REPORT Exam: Resting ECG Reason for Exam: Chest pain Patient Location: E HR:69 bpm ECG Measurements Heart Rate 69 AXIS HI 169 P 76 QRSd 99 QRS 60 QT 383 T 66 QTc 410 Conclusion Sinus rhythm...normal P axis, V-rate 60- 99 ST elev, probable normal early repol pattern...ST elevation, age<55 No STEMI
[2024-08-26 15:14] VITALS: RESP 22
[2024-08-26 15:16] VITALS: BP 126/69; PULSE 89; RESP 22; TEMP 36.5; O2SAT 99
[2024-08-26 15:27] LABS: Abs Immature Grans 0.02 10^3/uL (0.0-0.06); Absolute Eosinophil Count 0.21 10^3/uL (0.0-0.7); Absolute Lymphocyte Count 2.42 10^3/uL (1.2-3.4); Absolute Monocyte Count 0.55 10^3/uL (0.1-0.8); Absolute Neutrophil Count 6.29 10^3/uL (1.2-6.7); Eosinophils % 2.2 %; HCT 44.2 % (40.0-50.0); HGB 15.2 g/dL (13.5-17.5); Immature Grans % 0.2 %; Lymphocytes % 25.2 %; MCH 32.8 pg (27.0-33.0); MCHC 34.4 % (32.0-36.0); MCV 95 fL (80-95); MPV 10.2 fL (8.0-11.0); Monocytes % 5.7 %; Neutrophils % 65.7 %; Platelet Count 247 10^3/uL (130-400); RBC 4.64 10^6/uL (4.36-5.78); RDW 12.1 % (11.8-14.1); RDW-SD 42.2 fL; WBC 9.59 10^3/uL (4.4-10.8)
[2024-08-26 15:52] LABS: Anion Gap 8.4 mmol/L (3-11); BUN 11 mg/dL (7-18); CO2 29.6 mmol/L (21.0-32.0); CREATININE 0.7 mg/dL (0.70-1.30); Calcium 9.3 mg/dL (8.5-10.1); Chloride 103 mmol/L (98-107); Estimated GFR 129.52 (mL/min/1.73m2); Glucose 95 mg/dL (74-106); Potassium 3.7 mmol/L (3.5-5.1); Sodium 141 mmol/L (136-145); Troponin I 5 ng/L (<or=76)
[2024-08-26 16:42] LABS: Troponin I < 4 ng/L (<or=76)
[2024-08-26 16:57] VITALS: BP 118/69; PULSE 74; RESP 16; TEMP 36.9; O2SAT 100
== END 2024-08-26 17:00 | disposition home or self-care (01) ==
LOC: ER 16:41
PROVIDERS: Emergency Provider Emergency Medicine; PCP Family Medicine
DX: J18.9 Pneumonia, unspecified organism (principal); F17.210 Nicotine dependence, cigarettes, uncomplicated
CPT/HCPCS: 36415; 80048; 93005; 99285; 71046; 84484; 85025; 93010; 99284

== ENCOUNTER 2024-10-25 08:35 | Emergency (ER) | payer SELFPAY ==
[2024-10-25 08:38] VITALS: BP 122/66; PULSE 87; RESP 16; TEMP 36.3; O2SAT 99
--- NOTE | 2024-10-25 09:15 | DI.RAD_ITS ---
Exam(s) XR RIBS RT W PA LAT CHEST CLINICAL HISTORY: trauma, pain. COMPARISON: CR XR CHEST 2V PA LATERAL from 08/26/2024 TECHNIQUE:: PA and lateral views of the chest and four views of the right ribs were performed. FINDINGS: LUNGS:Clear. No pleural abnormality seen. HEART: Normal size. MEDIASTINUM: Normal. BONES: No displaced rib fracture is seen. No bony destructive lesion is seen. IMPRESSION: 1. Unremarkable radiographic appearance of the right ribs. 2. No acute pulmonary findings. The preliminary [facility] report was reviewed.
[2024-10-25] MEDS: Acetaminophen 325 MG TAB 650 MG PO (09:23)
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
[2024-10-25] MEDS: Lidocaine 5% Patch 1 PATCH TP (09:43)
--- NOTE | 2024-10-25 09:45 | DI.[facility]_ITS ---
PROCEDURE INFORMATION: Exam: XR Right Ribs Exam date and time: 10/25/2024 9:36 AM Age: 28 years old Clinical indication: Other: Trauma, pain TECHNIQUE: Imaging protocol: Radiologic exam of the right ribs. Views: 2 views. COMPARISON: CT CHEST PE CTA 03/15/2022 4:58 PM FINDINGS: Bones/joints: Normal. Soft tissues: Normal. IMPRESSION: Unremarkable right ribs. PROCEDURE INFORMATION: Exam: XR Chest Exam date and time: 10/25/2024 9:36 AM Age: 28 years old Clinical indication: Other: Trauma, pain TECHNIQUE: Imaging protocol: Radiologic exam of the chest. Views: 2 views. COMPARISON: CR XR CHEST 2V PA LATERAL 08/26/2024 4:06 PM FINDINGS: Lungs: Unremarkable. No consolidation. Pleural spaces: Unremarkable. No pleural effusion. No pneumothorax. Heart/Mediastinum: Unremarkable. No cardiomegaly. Bones/joints: Unremarkable. IMPRESSION: No evidence of active cardiopulmonary disease. Dictated and Authenticated by: Susi Morel MD. Orderin Rafi Ortiz MD
[2024-10-25] MEDS: Ibuprofen 600 MG TAB PO (09:46)
[2024-10-25 10:12] VITALS: BP 121/81; PULSE 60; RESP 16; TEMP 36.5; O2SAT 98
== END 2024-10-25 10:15 | disposition home or self-care (01) ==
PROVIDERS: Emergency Provider Student in an Organized Health Care Education/Training Program; PCP Family Medicine
DX: S20.211A Contusion of right front wall of thorax, initial encounter (principal); F17.210 Nicotine dependence, cigarettes, uncomplicated; V43.52XA Car driver injured in collision with other type car in traffic accident, initial encounter
CPT/HCPCS: 76604; 99283; 71046; 71100

== ENCOUNTER 2024-12-05 17:32 | Emergency (ER) | payer SELFPAY ==
--- NOTE | 2024-12-05 17:34 | W.EDPROG ---
Date of service: 12/05/24 Time of Service: 17:35 Medical Decision Making I initially signed off to evaluate this patient but did not see him nor participate in his care. Discharge Plan Discharge Details Primary Care Provider: Delfino Huang ED Provider: Niko Garcia [facility] and New Rx's Prescriptions: No Action lisdexamfetamine [Vyvanse] 50 mg capsule 50 mg PO DAILY MDD 50mg Qty: 28 0RF Rx Instructions: Take 1 pill daily in addition to the 20mg capsule naproxen 500 mg tablet 500 mg PO BID PRNQty: 7 0RF
[2024-12-05 17:35] VITALS: BP 111/72; PULSE 98; RESP 18; TEMP 36.7; O2SAT 96
--- NOTE | 2024-12-05 17:45 | DI.RAD_ITS ---
Exam(s) XR HAND LT COMPLETE EXAM: XR HAND LT COMPLETE CLINICAL HISTORY: L thumb pain, no snuffbox. TECHNIQUE: 2D digital imaging was performed. COMPARISON: CR,XR XR HAND RT COMPLETE from 07/24/2019 FINDINGS: 3 views There is a 3-4 mm calcific density off the medial aspect of the base of the 5th metacarpal. This has the appearance of an accessory ossicle more so than an actual acute fracture. No other significant osseous findings in the hand and thumb. No obvious abnormalities in the carpal row bones. IMPRESSION: There is a 3-4 mm calcific density at the base of the 5th metacarpal which is doubtful for acute fracture and is most probably an accessory ossicle/normal variant at this level. Correlation with site of tenderness is recommended. DATA REPOSITORY: RADIATION DOSE DELIVERED:
--- NOTE | 2024-12-05 17:45 | DI.RAD_ITS ---
Exam(s) XR HUMERUS LT EXAM: XR HUMERUS LT CLINICAL HISTORY: pain from falling onto arm while skateboarding. TECHNIQUE: 2D digital imaging was performed. COMPARISON: No exams were available for comparison FINDINGS: Two views No evidence of fracture or dislocation of humerus. Glenohumeral joint and AC joint appear unremarkable. Bone density normal. No osseous lesions. IMPRESSION: No significant osseous findings in the humerus. Other studies reveal an acute nondisplaced fracture of the radial head and neck. DATA REPOSITORY: RADIATION DOSE DELIVERED:
--- NOTE | 2024-12-05 17:45 | DI.RAD_ITS ---
Exam(s) XR FOREARM LT EXAM: XR FOREARM LT CLINICAL HISTORY: midshaft pain from falling onto arm while skateboa. TECHNIQUE: 2D digital imaging was performed. COMPARISON: CR,XR XR HUMERUS LT from 12/05/2024 FINDINGS: Two views. There is nondisplaced fracture of the radial head and neck. There is no elbow joint effusion. No other fractures identified in the forearm bones. IMPRESSION: Acute radial head-neck fracture, nondisplaced. DATA REPOSITORY: RADIATION DOSE DELIVERED:
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
[2024-12-05] MEDS: Acetaminophen 325 MG TAB 650 MG PO (17:57)
[2024-12-05] MEDS: Ibuprofen 800 MG TAB PO (19:53)
--- NOTE | 2024-12-05 19:56 | DI.VRAD_ITS ---
PROCEDURE INFORMATION: Exam: XR Left Humerus Exam date and time: 12/05/2024 18:37 Age: 29 years old Clinical indication: Injury or trauma; Blunt trauma (contusions or hematomas); Arm, upper; Left; Injury date: 4; Injury details: Fall onto arm while skateboarding TECHNIQUE: Imaging protocol: Radiologic exam of the left humerus. Views: 2 or more views. COMPARISON: CR XR CHEST 2V PA LATERAL 08/26/2024 16:06 FINDINGS: Bones/joints: Acute fracture of the radial head suspected, elbow radiographs recommended. The humerus is intact. Soft tissues: Soft tissue swelling distally. IMPRESSION: 1. Acute fracture of the radial head suspected, elbow radiographs recommended. 2. The humerus is intact. Dictated and Authenticated by: Shira Hall MD. Orderin Lila Mendenhall MD
--- NOTE | 2024-12-05 19:56 | DI.VRAD_ITS ---
PROCEDURE INFORMATION: Exam: XR Left Forearm Exam date and time: 12/05/2024 18:40 Age: 29 years old Clinical indication: Injury or trauma; Blunt trauma (contusions or hematomas); Arm, lower; Left; Injury date: 12/05/24; Injury details: Fall onto arm while skateboarding TECHNIQUE: Imaging protocol: Radiologic exam of the left forearm. Views: 2 views. COMPARISON: No relevant prior studies available. FINDINGS: Bones/joints: Acute fracture of the radial head without displacement. No dislocation. Moderate elbow joint effusion. Soft tissues: Unremarkable. IMPRESSION: 1. Acute fracture of the radial head without displacement. 2. Moderate elbow joint effusion. Dictated and Authenticated by: Shira Hall MD. Orderin Lila Mendenhall MD
--- NOTE | 2024-12-05 19:56 | DI.VRAD_ITS ---
PROCEDURE INFORMATION: Exam: XR Left Hand Exam date and time: 12/05/2024 18:46 Age: 29 years old Clinical indication: Injury or trauma; Fall; Other: Pain TECHNIQUE: Imaging protocol: Radiologic exam of the left hand. Views: 3 or more views. COMPARISON: CR XR FOREARM LT 12/05/2024 18:40 FINDINGS: Bones/joints: 3 mm avulsion fracture, versus normal variant ossicle, base of the 5th metacarpal, appears almost certainly nonacute. No dislocation. Soft tissues: Unremarkable. IMPRESSION: 3 mm avulsion fracture, versus normal variant ossicle, base of the 5th metacarpal, appears almost certainly nonacute. Please correlate with the location of tenderness. Dictated and Authenticated by: Shira Hall MD. Orderin Lila Mendenhall MD
--- NOTE | 2024-12-05 20:00 | DI.RAD_ITS ---
Exam(s) XR ELBOW LT COMPLETE EXAM: XR ELBOW LT COMPLETE CLINICAL HISTORY: further eval. w/coyles view. TECHNIQUE: 2D digital imaging was performed. COMPARISON: No exams were available for comparison FINDINGS: Five views. There is a nondisplaced fracture the radial head and neck. There is joint effusion-hemarthrosis. No other osseous findings. No loose intra-articular bodies. IMPRESSION: There is nondisplaced fracture of the radial head-neck. DATA REPOSITORY: RADIATION DOSE DELIVERED:
[2024-12-05] MEDS: MORPHine IR 15 MG TAB PO ×2 (20:25→21:52)
--- NOTE | 2024-12-05 21:06 | DI.VRAD_ITS ---
PROCEDURE INFORMATION: Exam: XR Left Elbow Exam date and time: 12/05/2024 20:38 Age: 29 years old Clinical indication: Injury or trauma; Fall; Other: Left elbow pain TECHNIQUE: Imaging protocol: Radiologic exam of the left elbow. Views: 3 or more views. COMPARISON: CR XR HAND LT COMPLETE 12/05/2024 18:46 FINDINGS: Bones/joints: Acute fracture of the radial head and neck without significant displacement . No dislocation. Moderate joint effusion. Soft tissues: Generalized soft tissue swelling. IMPRESSION: 1. Acute fracture of the radial head and neck without significant displacement . 2. Moderate joint effusion. Dictated and Authenticated by: Shira Hall MD. Orderin Lila Mendenhall MD
--- NOTE | 2024-12-06 12:46 | W.ED.FU ---
Follow Up Plan: Contacted by the pharmacy, they report that they do not have the prescription morphine in stock. I have written a prescription for oxycodone for the patient to take.
--- NOTE | 2024-12-08 09:22 | NUR.NOTE ---
Addendum entered by Birdie Flannery 12/08/24 09:24: And to get the discharge diagnosis for same reason. Original Note: Access chart to print demographic sheet for [facility] billing requisition. Nursing Note:
== END 2024-12-05 22:00 | disposition home or self-care (01) ==
PROVIDERS: Emergency Provider Nurse Practitioner Family; PCP Family Medicine
DX: S52.125A Nondisplaced fracture of head of left radius, initial encounter for closed fracture (principal); M25.022 Hemarthrosis, left elbow; S50.312A Abrasion of left elbow, initial encounter; F17.210 Nicotine dependence, cigarettes, uncomplicated; V00.131A Fall from skateboard, initial encounter; Y93.51 Activity, roller skating (inline) and skateboarding; Y92.89 Other specified places as the place of occurrence of the external cause
CPT/HCPCS: 00123; 99283; 73060; 73080; 73090; 73130

== ENCOUNTER 2024-12-22 10:31 | Outpatient (CLI) | payer SELFPAY ==
--- NOTE | 2024-12-22 10:00 | DI.RAD_ITS ---
Exam(s) XR ELBOW LT COMPLETE EXAM: XR ELBOW LT COMPLETE CLINICAL HISTORY: F/U L RADIAL HEAD FX. TECHNIQUE: 2D digital imaging was performed. Three views. COMPARISON: CR,XR XR ELBOW LT COMPLETE from 12/05/2024 FINDINGS: BONES: The radial head fracture remains nondisplaced. No bony destructive lesion is seen. JOINTS: The elbow is normally aligned. A joint effusion remains present.. SOFT TISSUE: Normal. IMPRESSION: Stable alignment of radial head fracture. DATA REPOSITORY: RADIATION DOSE DELIVERED:
== END 2024-12-22 10:32 | disposition home or self-care (01) ==
LOC: DIORS 10:32
PROVIDERS: PCP Family Medicine; Visit Provider Physician Assistant
DX: S52.122A Displaced fracture of head of left radius, initial encounter for closed fracture (principal)
CPT/HCPCS: 73080

== ENCOUNTER 2025-03-31 00:09 | Outpatient (CLI) | payer SELFPAY ==
[2025-04-01 09:37] LABS: PSA, Screening 0.8 ng/mL (<=2.5)
== END 2025-03-31 00:10 | disposition home or self-care (01) ==
LOC: LOS 00:10
PROVIDERS: PCP Family Medicine; Visit Provider Nurse Practitioner Family
DX: Z12.5 Encounter for screening for malignant neoplasm of prostate (principal)
CPT/HCPCS: 36415; 84153

== ENCOUNTER 2025-03-31 18:15 | Outpatient (REF) | payer SELFPAY ==
[2025-04-04 11:41] LABS: Chlamydia Result Negative (Negative); GC Result Negative (Negative)
== END 2025-03-31 18:16 | disposition home or self-care (01) ==
LOC: LBN 18:15
PROVIDERS: PCP Family Medicine; Visit Provider Nurse Practitioner Family
DX: R10.32 Left lower quadrant pain (principal)
CPT/HCPCS: 87491; 87591